=== PATIENT | male | born 1950 | race Two or more races ===

== ENCOUNTER 2018-10-08 19:15 | Inpatient (IN) | payer MEDICARE ==
[~2018-10-08] VITALS: Ht 177.8 cm; Wt 48.5 kg
--- NOTE | 2018-10-08 19:25 | NUR ---
PT BIBPA FROM [facility] BY PMD FOR ABNORMAL LABS WBC: 20.36, BUN: 28, CREATININE: 0.44. PT AOX3. NAD NOTED. RESP EVEN AND UNLABORED. TRACH. L ABD GTUBE. PT ON MONITOR IN BED 8. WILL CONTINUE TO MONITOR.
--- NOTE | 2018-10-08 20:07 | NUR ---
PHLEB AT BEDSIDE FOR LAB DRAW
[2018-10-08 20:18] LABS: BASOPHILS % (AUTO) 0.1 % (0.0-2.0); EOSINOPHILS % (AUTO) 0.5 % (0.0-6.0); HEMATOCRIT 42 % (39-51); HEMOGLOBIN 14.4 g/dL (13.5-17.5); LYMPHOCYTES # (AUTO) 0.9 /CMM (0.8-4.8); LYMPHOCYTES % (AUTO) 5.1 % (20.0-44.0); MEAN CORPUSCULAR HGB CONC 35 g/dl (31.0-36.0); MEAN CORPUSCULAR VOLUME 93 fL (80-96); MONOCYTES # (AUTO) 0.9 /CMM (0.1-1.30); MONOCYTES % (AUTO) 4.9 % (2.0-12.0); NEUTROPHILS # (AUTO) 16.3 /CMM (1.8-8.9); NEUTROPHILS % (AUTO) 89.4 % (43.0-81.0); PLATELET COUNT (AUTO) 244 /CMM (150-450); RED BLOOD CELL COUNT(AUTO) 4.45 MIL/uL (4.5-6.0); WHITE BLOOD COUNT (AUTO) 18.2 K/uL (4.3-11.0)
[2018-10-08 20:29] LABS: CALCIUM, SERUM 9.1 mg/dL (8.5-10.1); CARBON DIOXIDE 28 mmol/L (21-32); CHLORIDE 91 mmol/L (98-107); CREATININE 0.8 mg/dL (0.6-1.3); GLUCOSE 92 mg/dL (74-106); POTASSIUM 4.9 mmol/L (3.5-5.1); SODIUM SERUM 125 mmol/L (136-145); UREA NITROGEN, BLOOD 35 mg/dL (7-18)
[2018-10-08] MEDS ORDERED: IV NS 0.9% 1,000 ML BAG IV ONE (20:30)
--- NOTE | 2018-10-08 20:33 | NUR ---
RADIOLOGY AT BEDSIDE FOR XRAY
[2018-10-08 20:35] LABS: ALANINE AMINOTRANSFERASE 69 U/L (12-78); ALBUMIN 2.1 g/dL (3.4-5.0); ALKALINE PHOSPHATASE 121 U/L (46-116); ASPARTATE AMINOTRANSFERASE 36 U/L (15-37); BILIRUBIN,DIRECT 0.6 mg/dL (0.0-0.2); BILIRUBIN,TOTAL 1.2 mg/dL (0.2-1.0); TOTAL PROTEIN, SERUM 7.2 g/dL (6.4-8.2)
[2018-10-08] MEDS ORDERED: PIPERACILLIN /TAZOBACTAM 3.375 G VIAL IV ONE (21:00)
[2018-10-08] MEDS ORDERED: ACETAMINOPHEN 650 MG/SUPP.RECT RC ONE ×2 (21:00)
[2018-10-08] MEDS ORDERED: VANCOMYCIN 1 GM VIAL ONE (21:00)
[2018-10-08] MEDS ORDERED: PIPERACILLIN /TAZOBACTAM 3.375 G in IV D5W 50 ML IV ONE (21:00)
[2018-10-08] MEDS ORDERED: VANCOMYCIN 1 GM in IV D5W 250 ML IV ONE (21:00)
[2018-10-08] MEDS ORDERED: IPRA3AMP23 IH (21:24)
[2018-10-08] MEDS ORDERED: AMIO200T4 PO (21:24)
[2018-10-08] MEDS ORDERED: HYDR2TAB4 GT (21:24)
[2018-10-08] MEDS ORDERED: HYDR-4075 GT (21:24)
[2018-10-08] MEDS ORDERED: BUDE1AMP IH (21:24)
[2018-10-08] MEDS ORDERED: ACET-73 PO (21:24)
[2018-10-08] MEDS ORDERED: LIDO30AD10 TP (21:24)
[2018-10-08] MEDS ORDERED: VIT500LI GT (21:24)
[2018-10-08] MEDS ORDERED: LACT10SO GT (21:24)
[2018-10-08] MEDS ORDERED: L. A1TAB10 GT (21:24)
[2018-10-08] MEDS ORDERED: CHOL100040 GT (21:24)
[2018-10-08] MEDS ORDERED: DOCU50LI13 GT (21:24)
[2018-10-08] MEDS ORDERED: LANS15CA15 GT (21:24)
[2018-10-08] MEDS ORDERED: PROT946L GT (21:24)
[2018-10-08] MEDS ORDERED: NALO0.4D4 IV (21:24)
[2018-10-08] MEDS ORDERED: MULT9LIQ6 GT (21:24)
[2018-10-08] MEDS ORDERED: ESCI10TA GT (21:24)
--- NOTE | 2018-10-08 21:29 | NUR ---
PT REFUSED URETHRAL CATH. CONDOM CATH PLACED. AWARE.
--- NOTE | 2018-10-08 21:35 | NUR ---
TELE BED 117-1
--- NOTE | 2018-10-08 22:23 | NUR ---
REPORT GIVEN TO ALEXANDRA SON FOR STEVEN
--- NOTE | 2018-10-08 23:30 | NUR ---
RN NOTES GOT A CALL FROM LAB PT LACTIC ACID IS 2.6. CALLED LINDSAY BEE AND NO NEW ORDERS FOR NOW. WILL F/U AFTER MORNING LABS.
--- NOTE | 2018-10-08 23:45 | NUR ---
RN NOTES RECEIVED PATIENT ON GURNEY, ON TRACH COLLAR ON 6L O2, A/A/OX4,VERBAL. PATIENT HAS BEEN PLACED ON CLIENT CARE CONSULTANT WITH SR. PATIENT HAS NO COMPLAINT OF SOB, BREATHING IS EVEN . PATIENT IS COMPLAINING OF 10/10 LOWER BACK PAIN AT THIS TIME AND ASKING FOR PAIN MEDICATION. WILL F/U WITH MD OF NOW THERE ARE NO PAIN MEDICATIONS ORDERED. SKIN ASSESSMENT IS DONE, PICTURES ARE TAKEN AND PLACED IN THE CHART. RIGHT FOREARM G20 IV LINE IS PATIENT AND INTACT. PATIENT IS ORIENTED TO THE UNIT. ALL SAFETY MEASURES ARE IN PLACE, BED IN LOW, LOCKED POSITION, CALL LIGHT IN REACH. WILL CONTINUE TO MONITOR PATIENT CLOSELY.
[2018-10-09] VITALS: BP 101/53
[2018-10-09] MEDS: IV D5/ 0.9% NACL 1,000 ML IV PRN ×2 (00:23→17:12)
[2018-10-09] MEDS ORDERED: JEVITY 1.2 CAL 1,000 ML BOTTLE GT PRN ×2 (03:00)
[2018-10-09 04:00] VITALS: BP 110/42
[2018-10-09] MEDS ORDERED: PIPERACILLIN /TAZOBACTAM 3.375 G in IV NS 0.9% 100 ML IV SCH (05:00)
[2018-10-09] MEDS ORDERED: PIPERACILLIN /TAZOBACTAM 3.375 G VIAL IV ONE (05:33)
[2018-10-09 06:38] LABS: CALCIUM, SERUM 8.6 mg/dL (8.5-10.1); CREATININE 0.5 mg/dL (0.6-1.3); POTASSIUM 3.7 mmol/L (3.5-5.1)
[2018-10-09 06:44] LABS: BASOPHILS % (AUTO) 0.1 % (0.0-2.0); HEMATOCRIT 35 % (39-51); HEMOGLOBIN 11.7 g/dL (13.5-17.5); LYMPHOCYTES # (AUTO) 0.6 /CMM (0.8-4.8); LYMPHOCYTES % (AUTO) 4.3 % (20.0-44.0); MEAN CORPUSCULAR HGB CONC 34 g/dl (31.0-36.0); MEAN CORPUSCULAR VOLUME 94 fL (80-96); MONOCYTES # (AUTO) 0.7 /CMM (0.1-1.30); MONOCYTES % (AUTO) 5.6 % (2.0-12.0); NEUTROPHILS # (AUTO) 11.7 /CMM (1.8-8.9); PLATELET COUNT (AUTO) 194 /CMM (150-450); RED BLOOD CELL COUNT(AUTO) 3.68 MIL/uL (4.5-6.0)
--- NOTE | 2018-10-09 07:33 | NUR ---
CLINICAL REVIEWER NOTES RECEIVED PATIENT ASLEEP IN BED ABLE TO AROUSE WITH VOICE AND TOUCH. A/O X4 WITH TRACH ON 6 LTRS O2. SINUS ON THE TELE MONITOR. NO SIGNS OR SYMPTOMS OF RESPIRATORY DISTRESS OR ACUTE PAIN HOB ELEVATED >30 DEGREES GTF RUNNING CURRENTLY @ 40 ML/HR. IVF RUNNING TO RFA # 20 GAUGE D5NS @75 ML/HR. SAFETY AND ASPIRATION PRECAUTIONS IN PLACE BED IN LOW POSITION CALL LIGHT WITHIN REACH. WILL CONT TO MONITOR ACCORDINGLY
[2018-10-09 08:00] VITALS: BP 99/50
--- NOTE | 2018-10-09 08:04 | NUR ---
COLLECTOR OF PORT NOTES PATIENT PLACED ON CPAP BY RESPIRATORY
[2018-10-09 08:38] LABS: BAND % (MANUAL) 11 % (0.0-5.0); LYMPHOCYTES % (MANUAL) 5 % (16-48); MONOCYTES % (MANUAL) 6 % (0-11.0); NEUTROPHILS % (MANUAL) 78 (42-76)
[2018-10-09 08:51] LABS: APPEARANCE,URINE SL CLOUDY (CLEAR); BILIRUBIN,URINE NEGATIVE (NEGATIVE); BLOOD, URINE TRACE-INTA Ery/uL (NEGATIVE); COLOR,URINE ORANGE (YELLOW); KETONES,URINE NEGATIVE (NEGATIVE); LEUKOCYTE ESTERASE ,URINE 1+ (NEGATIVE); NITRITE, URINE NEGATIVE (NEGATIVE); PROTEIN,URINE TRACE mg/dl (NEGATIVE); UGLUCOSE NEGATIVE (NEGATIVE)
[2018-10-09] MEDS ORDERED: ACETAMINOPHEN 325 MG TABLET PO PRN (09:00)
[2018-10-09] MEDS ORDERED: LACTULOSE 10 G/15 ML UDC (PYXIS) GT PRN (09:00)
[2018-10-09] MEDS ORDERED: MAGNESIUM HYDROXIDE 30 ML UDC PO PRN (09:00)
[2018-10-09] MEDS ORDERED: ONDANSETRON HCL/PF 4 MG/2 ML VIAL IVP PRN (09:00)
[2018-10-09] MEDS ORDERED: MAG HYDROX/AL HYDROX/SIMETH 30 ML UDC PO PRN (09:00)
[2018-10-09] MEDS ORDERED: IPRATROPIUM NEB FS 0.5 MG/2.5 ML AMPUL.NEB NEB PRN (09:00)
[2018-10-09] MEDS ORDERED: ZOLPIDEM TARTRATE 5 MG TABLET PO PRN (09:00)
[2018-10-09] MEDS: ESCITALOPRAM OXALATE (10 MG) 10 MG TABLET GT SCH (09:02)
[2018-10-09] MEDS: ACIDOPHILUS/BULGARICUS 1 EACH TAB.CHEW GT SCH ×2 (09:02→17:09)
[2018-10-09] MEDS: HYDROCODONE/APAP 5/325MG 1 EACH TABLET PO PRN (09:03)
[2018-10-09] MEDS: DOCUSATE SODIUM LIQ 100 MG/10 ML UDC GT SCH ×2 (09:03→17:09)
[2018-10-09] MEDS: LIDOCAINE 5% (PATCH) 1 EA PATCH TP SCH (09:03)
[2018-10-09] MEDS: AMIODARONE HCL 200 MG TABLET PO SCH ×2 (09:04→17:00)
[2018-10-09] MEDS: BUDESONIDE RESPULE INH 0.5 MG/2 ML AMPUL.NEB IH SCH ×2 (09:30→21:47)
[2018-10-09 09:33] LABS: BACTERIA,URINE Few /HPF (None Seen); RBC,URINE 0-2 /HPF (0-2); SQUAMOUS EPITHELIAL CELL,UR Few /HPF (None Seen); WBC,URINE 81-100 /HPF (0-3)
[2018-10-09 09:35] LABS: TRIPLE PHOSPHATE CRYSTAL,UR Few /HPF (None Seen)
[2018-10-09] MEDS ORDERED: FEE PK DOSING 1 MIN EA MC ONE (09:46)
[2018-10-09 10:00] LABS: ABG BASE EXCESS 1.7 mmol/L; ABG OXYGEN SATURATION 82.3 % (92.0-98.5); ABG PCO2 33.5 mmHg (35.0-45.0); ABG PH 7.486 (7.350-7.450); ABG PO2 43.4 mmHg (75.0-100.0); AaDO2 203.3 mmHg; COHb 0.2 % (0.5-1.5); MetHb 0.5 % (0.0-1.5); O2Hb 81.7 % (94.0-97.0); SITE, ABG Left Radial; VENT MODE, BG CA
--- NOTE | 2018-10-09 10:16 | NUR ---
RUBBER WASHER NOTES PATIENT ABNORMAL ABGS. SATURATING 82-7-84% ON 6 LTRS TRACH. ORDERS OBTAINED TO PLACE PATIENT ON VENT WITH TRACH CHANGE D/T PORTEX
[2018-10-09] MEDS: VANCOMYCIN 0.75 GM in IV D5W 250 ML IV SCH ×2 (10:24→21:21)
[2018-10-09] MEDS: HYDROMORPHONE HCL 2 MG TABLET GT PRN ×2 (10:35→14:53)
--- NOTE | 2018-10-09 10:40 | NUR ---
RT ABG DONE AND RELAYED RESULTS TO DR MARX. PER DR MARX, PLACE PT ON VENT WITH CPAP 15/5 50% FIO2, AND SWITCHED OUT TRACH TO PORTEX # 6 CUFFED. PLACED PT ON VENT PER MD SETTINGS. ALARMS CHECKED AND AUDIBLE. VENT PLUGGED IN RED OUTLET. AMBU BAG HOB. SX WITH MOD THK PALE YELLOW SECRETIONS. PT PLACED ON CONTINUOUS PULSE OX. RN NOTIFIED AND WILL CONTINUE TO MONITOR T/O SHIFT.
[2018-10-09 12:00] VITALS: BP 116/56
[2018-10-09] MEDS ORDERED: PIPERACILLIN /TAZOBACTAM 3.375 G in IV D5W 100 ML IV SCH (12:00)
[2018-10-09] MEDS ORDERED: PIPERACILLIN /TAZOBACTAM 3.375 G in IV D5W 50 ML IV SCH (13:00)
--- NOTE | 2018-10-09 13:10 | NUR ---
ANIMAL CARE SPECIALIST NOTES 2 IV ACCESS OBTAINED (L) HAND # 20 GAUGE
[2018-10-09] MEDS: hydrALAZINE HCL 10 MG TABLET GT SCH ×2 (13:34→21:00)
[2018-10-09] MEDS: IPRATROPIUM NEB FS 0.5 MG/2.5 ML AMPUL.NEB NEB SCH ×2 (13:41→19:26)
[2018-10-09] MEDS: PIPERACILLIN /TAZOBACTAM 3.375 G in IV D5W 100 ML IV SCH ×2 (14:02→23:04)
[2018-10-09] MEDS: Z GUARD REMEDY 2 OZ OINT TP SCH ×2 (15:35→21:26)
[2018-10-09 16:00] VITALS: BP 88/46
[2018-10-09] MEDS: NYSTATIN TOP POWDER 15 GM BOTTLE TP SCH (17:09)
--- NOTE | 2018-10-09 18:41 | NUR ---
BARBER STYLIST NOTES PATIENT A/O X4 CURRENTLY ON VENT/ CPAP TOLERATING WELL. PORTEX 6 CHANGED TO CUFFED. NO SIGNS OR SYMPTOMS OF RESPIRATORY DISTRESS OR ACUTE PAIN NOTED. LAST DILAUDID GIVEN @ 1453. GTF ADVANCED TO 70ML/HR ORDERED TOLERATING WELL WITH 0 RESIDUAL.CONDOM CATH REPLACED DRAINING YELLOW/ORANGE COLORED URINE. IVF RUNNING TO RFA # 20 GAUGE D5NS @75 ML/HR L HAND # 20 GAUGE SALINE LOCK. ATB GIVEN WITH NO ADVERSE RXN NOTED. KEPT CLEAN AND DRY TURNED Q2 HR AND SUCTIONED NEEDED. SAFETY AND ASPIRATION PRECAUTIONS IN PLACE BED IN LOW POSITION CALL LIGHT WITHIN REACH
[2018-10-09] MEDS: JEVITY 1.2 CAL 1,000 ML BOTTLE GT PRN (18:54)
--- NOTE | 2018-10-09 19:21 | NUR ---
REPORT ENDORSED TO NOC
[2018-10-09 20:00] VITALS: BP 104/54
--- NOTE | 2018-10-09 21:00 | NUR ---
DRUM OPERATOR NOTES HYDRALAZINE DOSE FOR 9PM NOT GIVEN DUE TO BP 100/54, HR 85.
--- NOTE | 2018-10-09 22:00 | NUR ---
TELE/RN ENTRY NOTES PATIENT RECIEVED IN BED. RESTING COMFORTABLY. NO S/S OF ACUTE DISTRESS NOTES. RESPIRATION EVEN AND UNLABORED. NO SOB NOTED. PATIENT ALERT AND ORIENTED X4 DENIED ANY PAIN OR DISCOMFORT AT THIS TIME. IV SITE ON RFA 20 GAUGE AND IV SITE ON LEFT HAND 20 GAUGE. NOTED WITH NO S/S OF INFILTRATION, NO S/S OF INFECTION NOTED. D5 NS RUNNING AT 75ML/HR. TRACH INTACT, PATENT, IN MIDLINE CONNECTED TO VENT WITH PRESCRIBED SETTINGS. HOB KEPT ELEVATED. SAFETY MAINTAINED. BED AT THE LOWEST POSITION. WILL CONTINUE TO MONITOR PATIENT PER PLAN OF CARE. CALL LIGHT WITHIN REACH.
--- NOTE | 2018-10-09 22:13 | NUR ---
RT NOTE PATIENT RECEIVED TRACHED ON MECHANICAL VENTILATION WITH CHARTED SETTINGS. PORTEX [address] AMBU BAG @ BEDSIDE. VENT PLUGGED TO RED OUTLET. ALARMS ON AND AUDIBLE. TX GIVEN, NO ADVERSE REACTIONS NOTED. SX DONE, MODERATE THICK WHITE YELLOW SECRETIONS NOTED. PATIENT STABLE AT THIS TIME. WILL CONTINUE TO MONITOR. Addendum: 10/09/18 at 2214 by NANCY GILLIS RT Amended: Links added.
[2018-10-10] VITALS (7 sets, daily range): BP systolic 93–142; BP diastolic 54–72
[2018-10-10] MEDS: HYDROMORPHONE HCL 2 MG TABLET GT PRN ×4 (00:25→17:14)
[2018-10-10] MEDS: IPRATROPIUM NEB FS 0.5 MG/2.5 ML AMPUL.NEB NEB SCH ×4 (01:18→19:44)
[2018-10-10] MEDS: hydrALAZINE HCL 10 MG TABLET GT SCH ×3 (04:58→21:30)
--- NOTE | 2018-10-10 05:01 | NUR ---
TELE/RN NOTES HYDRALAZINE 10MG TAB WAS NOT ADMINISTER DUE TO LOW BLOOD PRESSURE 101/60
[2018-10-10] MEDS: PIPERACILLIN /TAZOBACTAM 3.375 G in IV D5W 100 ML IV SCH ×3 (05:11→21:31)
--- NOTE | 2018-10-10 06:54 | NUR ---
TELE/RN EXIT NOTES PATIENT REMAINED STABLE IN BED. RESTING COMFORTABLY. NO S/S OF ACUTE DISTRESS NOTES. RESPIRATION EVEN AND UNLABORED. NO SOB NOTED. PATIENT ALERT AND ORIENTED X4. DENIED ANY PAIN OR DISCOMFORT AT THIS TIME. IV SITE ON RFA 20 GAUGE AND IV SITE ON LEFT HAND 20 GAUGE, NOTED WITH NO S/S OF INFILTRATION, NO S/S OF INFECTION NOTED. D5 NS RUNNING AT 75ML/HR. TRACH INTACT, PATENT, IN MIDLINE CONNECTED TO VENT WITH PRESCRIBED SETTINGS. ORAL CARE PROVIDED. G TUBE IN PLACE, PATENT. NO RESIDUAL NOTED. CONTINUED TUBE FEEDING ORDERED. HOB KEPT ELEVATED. NO S/S OF ASPIRATION NOTED. SAFETY MEASURES MAINTAINED. BED AT THE LOWEST POSITION. CONDOM CATHETER INTACT, PATENT, DRAINGING WELL WITH CLEAR, YELLOW URINE. LAST OUTPUT NOTED 850. CALL LIGHT WITHING REACH. WILL ENDORSE TO THE AM SHIFT NURSE TO CONTINUE TO MONITOR.
--- NOTE | 2018-10-10 07:16 | NUR ---
CLINICAL REVIEW NURSE NOTES RECEIVED BEDSIDE REPORT PATIENT AWAKE IN BED ABLE TO RESPONDS TO VOICE AND TOUCH. A/O X4 ON VENT TOLERATING SETTINGS ORDERED. SINUS ON THE TELE MONITOR. NO SIGNS OR SYMPTOMS OF RESPIRATORY DISTRESS C/O BACK PAIN WILL MEDICATE NEEDED HOB ELEVATED >30 DEGREES GTF JEVITY 1.2 RUNNING @ 70ML/HR. IVF RUNNING TO RFA # 20 GAUGE D5NS @75 ML/HR LEFT HAND IV @ 20 GAUGE SALINE LOCK SAFETY AND ASPIRATION PRECAUTIONS IN PLACE BED IN LOW POSITION CALL LIGHT WITHIN REACH. WILL CONT TO MONITOR ACCORDINGLY
[2018-10-10 07:18] LABS: BASOPHILS % (AUTO) 0.1 % (0.0-2.0); EOSINOPHILS % (AUTO) 0.1 % (0.0-6.0); HEMATOCRIT 32 % (39-51); HEMOGLOBIN 10.9 g/dL (13.5-17.5); LYMPHOCYTES # (AUTO) 0.6 /CMM (0.8-4.8); LYMPHOCYTES % (AUTO) 6.3 % (20.0-44.0); MEAN CORPUSCULAR HGB CONC 34 g/dl (31.0-36.0); MEAN CORPUSCULAR VOLUME 94 fL (80-96); MONOCYTES # (AUTO) 0.8 /CMM (0.1-1.30); NEUTROPHILS # (AUTO) 7.8 /CMM (1.8-8.9); NEUTROPHILS % (AUTO) 84.5 % (43.0-81.0); PLATELET COUNT (AUTO) 161 /CMM (150-450); RED BLOOD CELL COUNT(AUTO) 3.37 MIL/uL (4.5-6.0); WHITE BLOOD COUNT (AUTO) 9.2 K/uL (4.3-11.0)
[2018-10-10 07:41] LABS: BILIRUBIN,TOTAL 0.4 mg/dL (0.2-1.0); CALCIUM, SERUM 8.2 mg/dL (8.5-10.1); CREATININE 0.4 mg/dL (0.6-1.3); MAGNESIUM 1.6 mg/dL (1.8-2.4); PHOSPHORUS 2.3 mg/dL (2.5-4.9); POTASSIUM 3.6 mmol/L (3.5-5.1); TOTAL PROTEIN, SERUM 5.5 g/dL (6.4-8.2)
[2018-10-10 07:44] LABS: ALBUMIN 1.4 g/dL (3.4-5.0)
[2018-10-10] MEDS: ESCITALOPRAM OXALATE (10 MG) 10 MG TABLET GT SCH (08:00)
[2018-10-10] MEDS: ACIDOPHILUS/BULGARICUS 1 EACH TAB.CHEW GT SCH ×2 (08:00→17:14)
[2018-10-10] MEDS: DOCUSATE SODIUM LIQ 100 MG/10 ML UDC GT SCH ×2 (08:00→17:14)
[2018-10-10] MEDS: NYSTATIN TOP POWDER 15 GM BOTTLE TP SCH ×2 (08:01→17:15)
[2018-10-10] MEDS: Z GUARD REMEDY 2 OZ OINT TP SCH ×2 (08:01→21:30)
[2018-10-10] MEDS: LIDOCAINE 5% (PATCH) 1 EA PATCH TP SCH (08:01)
--- NOTE | 2018-10-10 08:32 | NUR ---
[employer]IX ANALYST NOTES POSITIVE FOR BLOOD CULTURE PER STAS JIMÉNEZ INFORMED
[2018-10-10] MEDS: JEVITY 1.2 CAL 1,000 ML BOTTLE GT PRN ×2 (09:58→10:08)
[2018-10-10] MEDS: HYDROCODONE/APAP 5/325MG 1 EACH TABLET PO PRN ×2 (10:04→15:16)
[2018-10-10] MEDS: AMIODARONE HCL 200 MG TABLET PO SCH ×2 (10:04→17:00)
[2018-10-10] MEDS: IV D5/ 0.9% NACL 1,000 ML IV PRN (10:06)
[2018-10-10] MEDS: VANCOMYCIN 0.75 GM in IV D5W 250 ML IV SCH ×2 (10:07→21:46)
[2018-10-10 10:15] LABS: ABG BASE EXCESS 1.6 mmol/L; ABG OXYGEN SATURATION 98.7 % (92.0-98.5); ABG PH 7.455 (7.350-7.450); ABG PO2 158.1 mmHg (75.0-100.0); AaDO2 156.8 mmHg; COHb 0.3 % (0.5-1.5); MetHb 0.4 % (0.0-1.5); SITE, ABG Right Radial; VENT MODE, BG CPAP +5 PSV 15 50%
[2018-10-10] MEDS: BUDESONIDE RESPULE INH 0.5 MG/2 ML AMPUL.NEB IH SCH ×2 (10:19→21:43)
--- NOTE | 2018-10-10 10:58 | NUR ---
WOUND CARE CONSULT WOUND CARE RECEIVED CONSULT FOR EXCORIATION PERINEAL. WOUND CARE WILL DEFER CONSULT AND TREATMENT PLANS TO PLASTIC SURGICAL TEAM WHO ARE CURRENTLY FOLLOWING THIS PATIENT. PATIENT WITH MOISE AT 13, ALL PRESSURE ULCER PREVENTION MEASURES ARE NOTED TO BE IN PLACE AT THIS TIME. WILL SEE PRN.
[2018-10-10] MEDS: Magnesium 1GM/D5W 100ML PREMIX 100 ML IV SCH ×2 (11:11→12:13)
[2018-10-10] MEDS ORDERED: NEUTRA PHOS 1 POWD.PACKET GT ONE (12:00)
--- NOTE | 2018-10-10 18:08 | NUR ---
RT NOTE PT REMAINS MECHANICALLY VENTILATED VIA PORTEX 6 CUFFED TRACHEOSTOMY TUBE. CUFF INFLATED. TRACH TUBE MIDLINE AND SECURE. VENTILATOR SETTINGS PRESCRIBED. ALARMS SET PER PROTOCOL AND AUDIBLE. VENT PLUGGED IN TO RED OUTLET. AMBU BAG AT BED SIDE. NO DISTRESS NOTED. PT AWAKE AND ALERT. Addendum: 10/10/18 at 1810 by JAKOB SIMPSON RT Amended: Links added.
--- NOTE | 2018-10-10 18:37 | NUR ---
STEM CRUSHER NOTES NO SIGNIFICANT CHANGES THROUGHOUT THE SHIFT PATIENT A/O X4 CURRENTLY ON VENT/ CPAP TOLERATING WELL NO SIGNS OR SYMPTOMS OF RESPIRATORY DISTRESS OR ACUTE PAIN NOTED. LAST DILAUDID GIVEN @ 1730 GTF JEVITY 1.2 RUNNING TO 70ML/HR ORDERED TOLERATING WELL WITH 0 RESIDUAL.CONDOM CATH DRAINING CLEAR YELLOW/ORANGE COLORED URINE. IVF RUNNING TO L HAND # 20 GAUGE D5NS @75 ML/HR ATB GIVEN WITH NO ADVERSE RXN NOTED. KEPT CLEAN AND DRY TURNED Q2 HR AND SUCTIONED NEEDED. SAFETY AND ASPIRATION PRECAUTIONS IN PLACE BED IN LOW POSITION CALL LIGHT WITHIN REACH
--- NOTE | 2018-10-10 19:17 | NUR ---
REPORT ENDORSED TO NOC
--- NOTE | 2018-10-10 19:56 | NUR ---
BUTTER PRINTER INITIAL NOTES RECEIVED BEDSIDE REPORT PATIENT AWAKE IN BED ABLE TO RESPONDS TO VOICE AND TOUCH. A/O X4 ON CPAP MODE VENT TOLERATING SETTINGS ORDERED. SINUS ON THE TELE MONITOR. NO SIGNS OR SYMPTOMS OF RESPIRATORY DISTRESS C/O BACK PAIN WILL MEDICATE NEEDED HOB ELEVATED >30 DEGREES GTF JEVITY 1.2 RUNNING @ 70ML/HR. IVF RUNNING TO RFA # 20 GAUGE D5NS @75 ML/HR LEFT HAND IV @ 20 GAUGE SALINE LOCK SAFETY AND ASPIRATION PRECAUTIONS IN PLACE BED IN LOW POSITION CALL LIGHT WITHIN REACH. WILL CONT TO MONITOR ACCORDINGLY
[2018-10-11] VITALS: BP 129/64
[2018-10-11] MEDS: HYDROMORPHONE HCL 2 MG TABLET GT PRN ×4 (00:58→15:31)
[2018-10-11] MEDS: IPRATROPIUM NEB FS 0.5 MG/2.5 ML AMPUL.NEB NEB SCH ×4 (01:21→19:28)
[2018-10-11] MEDS: hydrALAZINE HCL 10 MG TABLET GT SCH ×3 (04:37→20:36)
[2018-10-11] MEDS: IV D5/ 0.9% NACL 1,000 ML IV PRN (04:53)
[2018-10-11 04:55] VITALS: BP 124/64
[2018-10-11] MEDS: PIPERACILLIN /TAZOBACTAM 3.375 G in IV D5W 100 ML IV SCH ×3 (05:18→21:08)
--- NOTE | 2018-10-11 05:59 | NUR ---
RT NOTE RECEIVED TRACH PATIENT WITH PORTEX#6 ON NOTED VENT SETTINGS. PRN SUCTION WAS DONE . VENT PLUGGED INTO RED OUTLET . ALARMS ARE SET AND AUDIBLE. PATIENT TRACH IS SECURED AND PATENT. PATIENT STABLE THROUGHOUT THE SHIFT. WILL CONTINUE TO MONITOR PATIENT. Addendum: 10/11/18 at 0600 by JIE SIMPSON RT Amended: Links added.
[2018-10-11 06:17] LABS: BASOPHILS % (AUTO) 0.3 % (0.0-2.0); EOSINOPHILS % (AUTO) 0.2 % (0.0-6.0); HEMATOCRIT 32 % (39-51); HEMOGLOBIN 10.8 g/dL (13.5-17.5); LYMPHOCYTES # (AUTO) 0.4 /CMM (0.8-4.8); LYMPHOCYTES % (AUTO) 6.7 % (20.0-44.0); MEAN CORPUSCULAR HGB CONC 34 g/dl (31.0-36.0); MEAN CORPUSCULAR VOLUME 94 fL (80-96); MONOCYTES % (AUTO) 15.7 % (2.0-12.0); NEUTROPHILS # (AUTO) 4.9 /CMM (1.8-8.9); NEUTROPHILS % (AUTO) 77.1 % (43.0-81.0); PLATELET COUNT (AUTO) 154 /CMM (150-450); WHITE BLOOD COUNT (AUTO) 6.3 K/uL (4.3-11.0)
[2018-10-11 06:39] LABS: BILIRUBIN,TOTAL 0.5 mg/dL (0.2-1.0); CALCIUM, SERUM 7.6 mg/dL (8.5-10.1); CREATININE 0.3 mg/dL (0.6-1.3); MAGNESIUM 1.7 mg/dL (1.8-2.4); PHOSPHORUS 2.7 mg/dL (2.5-4.9); POTASSIUM 3.7 mmol/L (3.5-5.1); TOTAL PROTEIN, SERUM 5.5 g/dL (6.4-8.2)
[2018-10-11 06:41] LABS: ALBUMIN 1.3 g/dL (3.4-5.0)
--- NOTE | 2018-10-11 06:55 | NUR ---
GENERAL CLAIMS AGENT CLOSING NOTES ENDORSED BEDSIDE REPORT PATIENT AWAKE IN BED ABLE TO RESPONDS TO VOICE AND TOUCH. A/O X4 ON CPAP MODE VENT TOLERATING SETTINGS ORDERED. SINUS ON THE TELE MONITOR. NO SIGNS OR SYMPTOMS OF RESPIRATORY DISTRESS C/O BACK PAIN WILL MEDICATE NEEDED HOB ELEVATED >30 DEGREES GTF JEVITY 1.2 RUNNING @ 70ML/HR. IVF RUNNING TO RFA # 20 GAUGE D5NS @75 ML/HR LEFT HAND IV @ 20 GAUGE SALINE LOCK SAFETY AND ASPIRATION PRECAUTIONS IN PLACE BED IN LOW POSITION CALL LIGHT WITHIN REACH. WILL CONT TO MONITOR ACCORDINGLY
[2018-10-11 07:30] LABS: BAND % (MANUAL) 9 % (0.0-5.0); LYMPHOCYTES % (MANUAL) 10 % (16-48); MONOCYTES % (MANUAL) 16 % (0-11.0); NEUTROPHILS % (MANUAL) 65 (42-76)
--- NOTE | 2018-10-11 07:30 | NUR ---
VP RESPIRATORY INITIAL NOTES RECEIVED PT IN BED, A/O X2-3. PT ON CPAP. TOLERATING SETTINGS WELL. NO S/SX OF RESP DISTRESS. LARGE AMOUNT OF SECRETIONS SUCTIONED. PT HAS CONDOM CATH PLACED. JEVITY RUNNING AT 70ML/HR. NO RESIDUAL NOTED. RFA #20 AND LEFT HAND C/D/P/I. PT C/O PAIN 10/10 ON BACK. BED IN LOCKED/LOWEST POSITION. CALL LIGHT IN REACH. WILL CONT TO MONITOR.
[2018-10-11] MEDS: BUDESONIDE RESPULE INH 0.5 MG/2 ML AMPUL.NEB IH SCH ×2 (07:52→19:28)
[2018-10-11 08:00] VITALS: BP 147/87
[2018-10-11] MEDS: ESCITALOPRAM OXALATE (10 MG) 10 MG TABLET GT SCH (08:53)
[2018-10-11] MEDS: DOCUSATE SODIUM LIQ 100 MG/10 ML UDC GT SCH ×2 (08:53→16:31)
[2018-10-11] MEDS: ACIDOPHILUS/BULGARICUS 1 EACH TAB.CHEW GT SCH ×2 (08:53→16:31)
[2018-10-11] MEDS: LIDOCAINE 5% (PATCH) 1 EA PATCH TP SCH (08:54)
[2018-10-11] MEDS: AMIODARONE HCL 200 MG TABLET PO SCH ×2 (08:54→16:31)
[2018-10-11] MEDS: VANCOMYCIN 0.75 GM in IV D5W 250 ML IV SCH ×2 (09:08→18:49)
[2018-10-11] MEDS: Z GUARD REMEDY 2 OZ OINT TP PRN (09:12)
[2018-10-11] MEDS: Z GUARD REMEDY 2 OZ OINT TP SCH ×2 (09:12→21:07)
[2018-10-11] MEDS: NYSTATIN TOP POWDER 15 GM BOTTLE TP SCH ×2 (09:12→16:31)
[2018-10-11] MEDS: Magnesium 1GM/D5W 100ML PREMIX 100 ML IV SCH ×2 (10:37→12:02)
[2018-10-11 12:00] VITALS: BP 109/58
[2018-10-11] MEDS: HYDROCODONE/APAP 5/325MG 1 EACH TABLET PO PRN ×2 (12:11→17:18)
[2018-10-11 16:00] VITALS: BP 118/64
--- NOTE | 2018-10-11 17:34 | NUR ---
PT TRANSFERRED TO CT VIA BVM @ 15 LPM, AND BACK TO [place]. PT PLACED BACK ON VENTILATOR IN [place] WITH PREVIOUS SETTINGS. ALARMS SET AND AUDIBLE THROUGH OUT [place] UNIT. SPARE TRACH AND BVM AT HEAD OF BED. Addendum: 10/11/18 at 1738 by MARK SALEH RT Amended: Links added.
--- NOTE | 2018-10-11 17:51 | NUR ---
telephone clerks supervisor notes per dr osvaldo krishnamurthy, hold gtf until GI sees patient.
--- NOTE | 2018-10-11 18:49 | NUR ---
DIGITAL MEDIA REPRESENTATIVE CLOSING NOTES PT RESTING, TOLERATING VENT SETTINGS. NO C/O PAIN AT THIS TIME. WILL ENDORSE TO PM NURSE FOR STEVEN.
--- NOTE | 2018-10-11 19:30 | NUR ---
DIAGNOSTIC CARDIAC SONOGRAPHER NOTE: RECEIVED PT ON BED ASLEEP BUT AROUSES EASILY TO VERBAL AND TACTILE STIMULI. NO APPARENT DISTRESS NOTED. DENIES PAIN AND DISCOMFORT AT THIS TIME. [facility], SETTINGS ORDERED. NO SOB NOTED. SUCTIONED NEEDED. IV INTACT AND PATENT, IVF INFUSING WELL. ON TELE MONITOR SINUS RHYTHM HR 68BPM. KEPT CLEAN, DRY AND COMFORTABLE. SAFETY AND FALL PRECAUTIONS OBSERVED AND MAINTAINED. WILL CONTINUE TO MONITOR PT.
[2018-10-11 20:00] VITALS: BP 106/61
[2018-10-12] VITALS (7 sets, daily range): BP systolic 102–120; BP diastolic 60–68
[2018-10-12] MEDS: HYDROMORPHONE HCL 2 MG TABLET GT PRN ×4 (00:20→16:16)
[2018-10-12] MEDS: IPRATROPIUM NEB FS 0.5 MG/2.5 ML AMPUL.NEB NEB SCH ×4 (01:38→19:32)
[2018-10-12] MEDS: VANCOMYCIN 0.75 GM in IV D5W 250 ML IV SCH ×2 (02:09→10:05)
[2018-10-12] MEDS: HYDROCODONE/APAP 5/325MG 1 EACH TABLET PO PRN ×4 (02:38→20:48)
[2018-10-12] MEDS: hydrALAZINE HCL 10 MG TABLET GT SCH ×3 (04:40→22:10)
[2018-10-12] MEDS: IV D5/ 0.9% NACL 1,000 ML IV PRN ×2 (05:16→20:44)
[2018-10-12] MEDS: PIPERACILLIN /TAZOBACTAM 3.375 G in IV D5W 100 ML IV SCH ×3 (05:20→22:10)
[2018-10-12 06:35] LABS: BASOPHILS % (AUTO) 0.2 % (0.0-2.0); EOSINOPHILS % (AUTO) 0.4 % (0.0-6.0); HEMATOCRIT 32 % (39-51); HEMOGLOBIN 10.9 g/dL (13.5-17.5); LYMPHOCYTES # (AUTO) 0.8 /CMM (0.8-4.8); LYMPHOCYTES % (AUTO) 11.6 % (20.0-44.0); MEAN CORPUSCULAR HGB CONC 34 g/dl (31.0-36.0); MEAN CORPUSCULAR VOLUME 94 fL (80-96); MONOCYTES # (AUTO) 1.1 /CMM (0.1-1.30); MONOCYTES % (AUTO) 16.1 % (2.0-12.0); NEUTROPHILS # (AUTO) 5.1 /CMM (1.8-8.9); NEUTROPHILS % (AUTO) 71.7 % (43.0-81.0); PLATELET COUNT (AUTO) 143 /CMM (150-450); WHITE BLOOD COUNT (AUTO) 7.1 K/uL (4.3-11.0)
[2018-10-12 06:48] LABS: BILIRUBIN,TOTAL 0.7 mg/dL (0.2-1.0); CALCIUM, SERUM 7.7 mg/dL (8.5-10.1); CREATININE 0.3 mg/dL (0.6-1.3); MAGNESIUM 1.8 mg/dL (1.8-2.4); PHOSPHORUS 3.1 mg/dL (2.5-4.9); POTASSIUM 3.6 mmol/L (3.5-5.1); TOTAL PROTEIN, SERUM 5.4 g/dL (6.4-8.2)
--- NOTE | 2018-10-12 06:49 | NUR ---
SHOE PARTS MOLDER NOTE: NO CHANGES NOTED THROUGHOUT THE SHIFT. NO APPARENT DISTRESS NOTED. COMPLAINED OF BACK PAIN, PRN PAIN MEDS GIVEN, VERBALIZATION OF RELIEF NOTED. [facility], SETTINGS ORDERED. SUCTIONED NEEDED. SINUS RHYTHM ON TELE MONITOR HT 73BPM. NO LEAKAGE ON GT NOTED. KEPT CLEAN, DRY AND COMFORTABLE. SAFETY AND FALL PRECAUTIONS OBSERVED AND MAINTAINED. WILL ENDORSE TO DAY SHIFT RN FOR CONTINUITY OF CARE.
--- NOTE | 2018-10-12 07:45 | NUR ---
ASSISTANT BASEBALL COACH NOTES RECEIVED BEDSIDE REPORT PATIENT AWAKE IN BED ABLE TO RESPOND TO VOICE AND TOUCH. A/O X4 ON VENT/CPAP TOLERATING SETTINGS ORDERED. SINUS ON THE TELE MONITOR. NO SIGNS OR SYMPTOMS OF RESPIRATORY DISTRESS C/O OF CHRINIC BACK PAIN HOB ELEVATED >30 DEGREES GTF ON HOLD D/T GT SITE LEAKING . IVF RUNNING TO L HAND # 20 GAUGE D5NS @75 ML/HR RFA IV @ 20 GAUGE SALINE LOCK SAFETY AND ASPIRATION PRECAUTIONS IN PLACE BED IN LOW POSITION CALL LIGHT WITHIN REACH. WILL CONT TO MONITOR ACCORDINGLY
[2018-10-12 07:54] LABS: ALBUMIN 1.3 g/dL (3.4-5.0)
--- NOTE | 2018-10-12 07:56 | NUR ---
CRITICAL LAB ALBUMIN 1.3 DR HERNANDEZ AWARE STATED PT HAS ABNORMAL CT AND NEURO TO CONSULT
[2018-10-12] MEDS: ACIDOPHILUS/BULGARICUS 1 EACH TAB.CHEW GT SCH ×2 (08:27→16:16)
[2018-10-12] MEDS: AMIODARONE HCL 200 MG TABLET PO SCH ×2 (08:27→16:16)
[2018-10-12] MEDS: ESCITALOPRAM OXALATE (10 MG) 10 MG TABLET GT SCH (08:27)
[2018-10-12] MEDS: DOCUSATE SODIUM LIQ 100 MG/10 ML UDC GT SCH ×2 (08:27→16:16)
[2018-10-12] MEDS: LIDOCAINE 5% (PATCH) 1 EA PATCH TP SCH (08:28)
[2018-10-12] MEDS: NYSTATIN TOP POWDER 15 GM BOTTLE TP SCH ×2 (08:28→16:16)
[2018-10-12] MEDS: Z GUARD REMEDY 2 OZ OINT TP SCH ×2 (08:28→22:11)
[2018-10-12] MEDS: BUDESONIDE RESPULE INH 0.5 MG/2 ML AMPUL.NEB IH SCH ×2 (09:51→21:00)
[2018-10-12 15:16] LABS: IRON, SERUM 27 ug/dl (50-175)
[2018-10-12 15:40] LABS: TOTAL IRON BINDING CAPACITY 169 ug/dl (250-450)
[2018-10-12 15:50] LABS: FERRITIN 5791 ng/mL (8-388)
--- NOTE | 2018-10-12 18:39 | NUR ---
OFFICE AUDITOR NOTES NO SIGNIFICANT CHANGES THROUGHOUT THE SHIFT PATIENT A/O X4 CURRENTLY ON VENT/ CPAP TOLERATING WELL NO SIGNS OR SYMPTOMS OF RESPIRATORY DISTRESS OR ACUTE PAIN NOTED AT THIS TIME PAIN MEDS GIVEN THROUGHOUT SHIFT GTF ON HOLE DUE TO LEAKING AT STOMA SITE AWAITING GI CONSULT CONDOM CATH DRAINING CLEAR YELLOW URINE. IVF RUNNING TO L HAND # 20 GAUGE D5NS @75 ML/HR RIGHT HAND # 20 GAUGE ATB ATB/TKO. ATB GIVEN WITH NO ADVERSE RXN NOTED. ORAL AND TRACH DONE KEPT CLEAN AND DRY TURNED Q2 HR AND SUCTIONED NEEDED. SAFETY AND ASPIRATION PRECAUTIONS IN PLACE BED IN LOW POSITION CALL LIGHT WITHIN REACH
--- NOTE | 2018-10-12 19:16 | NUR ---
REPORT ENDORSED TO NOC
--- NOTE | 2018-10-12 19:25 | NUR ---
MS/RN OPENING NOTES PT RECEIVED WITH EYES CLOSED. ON VENT AND TOLERATING SETTINGS. BREATHING EVEN AND UNLABORED. IN NO ACUTE DISTRESS. ON TELE MONITOR SHOWING SR 72. CONDOM CATH IN PLACE AND DRAINING TO GRAVITY. GT IN PLACE, FEEDING ON HOLD FOR NOW DUE TO SITE LEAKING. IV TO LEFT HAND RUNNING IVF ORDERED. IV TO RFA PATENT AND INTACT SALINE LOCKED. BED IN LOW/LOCKED POSITION WITH HOB SEMI FOWLERS. BILAT. UPPER SIDE RAILS IN PLACE. WILL CONTINUE TO MONITOR
[2018-10-13] VITALS: BP 111/63
[2018-10-13] MEDS: JEVITY 1.2 CAL 1,000 ML BOTTLE GT PRN ×2 (00:58→23:25)
[2018-10-13] MEDS: HYDROMORPHONE HCL 2 MG TABLET GT PRN ×4 (01:03→21:01)
--- NOTE | 2018-10-13 01:06 | NUR ---
RN NOTES PER GLENIS YUAN (GI) NOTE, CONTINUE TUBE FEEDINGS TOLERATED AND MAKE SURE GTUBE BUMPER AND STOPPER IS SNUG. ALTERNATIVE FINANCING SPECIALIST NOTIFIED. SECURED GT BUMPER AND INITIATED TUBE FEEDING AT 20CC/HR. ABDOMEN IS SOFT AND NON TENDER. WILL MONITOR FOR LEAKING. PT ALSO C/O 10/10 BACK PAIN. REQUESTING PAIN MEDS. ADMINISTERED PRN DILAUDID TABLET ORDERED AND REPOSITIONED PT.
[2018-10-13] MEDS: IPRATROPIUM NEB FS 0.5 MG/2.5 ML AMPUL.NEB NEB SCH ×4 (01:30→19:28)
[2018-10-13] MEDS: HYDROCODONE/APAP 5/325MG 1 EACH TABLET PO PRN (02:49)
--- NOTE | 2018-10-13 02:50 | NUR ---
PRN NORCO PT C/O BACK PAIN 12/03. ADMINISTERED PRN NORCO AND REPOSITIONED PT. PT TOLERATING GT FEEDING. STOMA WITH MILD LEAKING, SIMILAR AMOUNT OF DRAINAGE AT BEGINNING OF SHIFT. RE-SECURED BUMPER TO ABDOMEN. HOB REMAINS ELEVATED. NO ADDITIONAL NEEDS EXPRESSED AT THIS TIME.
[2018-10-13 04:00] VITALS: BP 118/66
[2018-10-13] MEDS: PIPERACILLIN /TAZOBACTAM 3.375 G in IV D5W 100 ML IV SCH ×3 (05:15→21:01)
[2018-10-13] MEDS: hydrALAZINE HCL 10 MG TABLET GT SCH ×3 (05:15→21:02)
--- NOTE | 2018-10-13 06:25 | NUR ---
TELE/RN CLOSING NOTES PT ASLEEP, RESPONSIVE TO NAME. TOLERATING MECHANICAL VENT SETTINGS. ON CONTINUOUS PULSE OX SHOWING 100%. SUCTIONED PRN. BREATHING EVEN AND UNLABORED. IN NO ACUTE DISTRESS. ON TELE MONITOR SHOWING SR, 65. IV TO LEFT HAND AND RFA PATENT AND INTACT RUNNING IVF ORDERED. GT PATENT AND INTACT, JEVITY RUNNING AT 20CC/HR. TOLERATING WELL. NO RESIDUALS OR SIGNIFICANT LEAKING FROM SITE NOTED. CONDOM CATH IN PLACE AND DRAINING TO GRAVITY. TURNED/REPOSITIONED Q2H AND PRN, HEELS OFFLOADED. PRN PAIN MEDS ADMINISTERED THROUGHOUT SHIFT. WOUND CARE RENDERED ORDERED. NO SIGNIFICANT CHANGES OVERNIGHT. HOB ELEVATED. BED IN LOW/LOCKED POSITION WITH CALL LIGHT IN REACH, BILAT. UPPER SIDE RAILS IN PLACE. WILL ENDORSE TO DAY SHIFT RN STEVEN.
[2018-10-13 07:06] LABS: BASOPHILS % (AUTO) 0.5 % (0.0-2.0); EOSINOPHILS % (AUTO) 0.6 % (0.0-6.0); HEMATOCRIT 31 % (39-51); HEMOGLOBIN 10.8 g/dL (13.5-17.5); LYMPHOCYTES % (AUTO) 15.5 % (20.0-44.0); MEAN CORPUSCULAR HGB CONC 35 g/dl (31.0-36.0); MEAN CORPUSCULAR VOLUME 94 fL (80-96); MONOCYTES % (AUTO) 14.8 % (2.0-12.0); NEUTROPHILS # (AUTO) 4.5 /CMM (1.8-8.9); NEUTROPHILS % (AUTO) 68.6 % (43.0-81.0); PLATELET COUNT (AUTO) 137 /CMM (150-450); RED BLOOD CELL COUNT(AUTO) 3.34 MIL/uL (4.5-6.0); WHITE BLOOD COUNT (AUTO) 6.5 K/uL (4.3-11.0)
--- NOTE | 2018-10-13 07:16 | NUR ---
ECONOMICS DEPARTMENT CHAIR NOTES RECEIVED BEDSIDE REPORT PATIENT ASLEEP IN BED ABLE TO AROUSE TO VOICE AND TOUCH. A/O X4 ON VENT/CPAP TOLERATING SETTINGS ORDERED. SINUS ON THE TELE MONITOR. NO SIGNS OR SYMPTOMS OF RESPIRATORY DISTRESS C/O OF CHRONIC BACK PAIN HOB ELEVATED >30 DEGREES GTF JEVITY 1.2 @ 45 ML/HR WITH GOAL OF 70 ML/HR LEAKING NOTED TO GT SITE GI CONSULT DONE CONT TO MONITOR. IVF RUNNING TO L HAND # 20 GAUGE D5NS @75 ML/HR RFA IV @ 20 GAUGE SALINE LOCK SAFETY AND ASPIRATION PRECAUTIONS IN PLACE BED IN LOW POSITION CALL LIGHT WITHIN REACH. WILL CONT TO MONITOR ACCORDINGLY
[2018-10-13] MEDS ORDERED: PANTOPRAZOLE 40 MG TABLET.DR PO SCH (07:30)
[2018-10-13 07:58] LABS: BILIRUBIN,TOTAL 0.6 mg/dL (0.2-1.0); CALCIUM, SERUM 7.6 mg/dL (8.5-10.1); CREATININE 0.4 mg/dL (0.6-1.3); MAGNESIUM 1.7 mg/dL (1.8-2.4); POTASSIUM 3.3 mmol/L (3.5-5.1); TOTAL PROTEIN, SERUM 5.4 g/dL (6.4-8.2)
[2018-10-13 08:00] VITALS: BP 111/63
[2018-10-13 08:02] LABS: ALBUMIN 1.1 g/dL (3.4-5.0)
[2018-10-13] MEDS: ESCITALOPRAM OXALATE (10 MG) 10 MG TABLET GT SCH (08:14)
[2018-10-13] MEDS: DOCUSATE SODIUM LIQ 100 MG/10 ML UDC GT SCH ×2 (08:15→17:02)
[2018-10-13] MEDS: ACIDOPHILUS/BULGARICUS 1 EACH TAB.CHEW GT SCH ×2 (08:15→17:02)
[2018-10-13] MEDS: LIDOCAINE 5% (PATCH) 1 EA PATCH TP SCH (08:15)
[2018-10-13] MEDS: AMIODARONE HCL 200 MG TABLET PO SCH (08:15)
[2018-10-13] MEDS ORDERED: PHARMACY TO CHANGE PO MEDS TO GT/NG XX PRN (08:30)
[2018-10-13] MEDS: AMIODARONE HCL 200 MG TABLET GT SCH ×2 (09:00→17:03)
[2018-10-13] MEDS ORDERED: ACETAMINOPHEN 650 MG/20.3 ML UDC GT PRN (09:00)
[2018-10-13] MEDS ORDERED: MAG HYDROX/AL HYDROX/SIMETH 30 ML UDC GT PRN (09:00)
[2018-10-13] MEDS ORDERED: MAGNESIUM HYDROXIDE 30 ML UDC GT PRN (09:00)
[2018-10-13] MEDS: Z GUARD REMEDY 2 OZ OINT TP SCH ×2 (09:07→21:01)
[2018-10-13] MEDS: NYSTATIN TOP POWDER 15 GM BOTTLE TP SCH ×2 (09:07→17:04)
[2018-10-13] MEDS: PANTOPRAZOLE 40 MG/PACK PACK GT SCH (09:07)
--- NOTE | 2018-10-13 09:26 | NUR ---
REPORT ENDORSED TO RYAN MORRIS
--- NOTE | 2018-10-13 09:31 | NUR ---
RN OPENING NOTES REPORT FROM ALEXANDRA GREEN. PATIENT IN BED ASLEEP BUT EASILY AROUSABLE. ALERT, MOUTHS WORDS. ON VENT, SATING GOOD >90%. ON CONDOM CATH. ON GTF WITH JEVITY. HAS LEFT HAND #20 WITH D5NS AT 75 ML/HR. AND RIGHT FA #20 SALINE LOCKED. PENDING STOOL FOR OB. NO COMPLAINS OF ANY PAIN OR SOB AT THIS TIME. BED LOCKED AND IN LOW POSITION. CALL LIGHT WITHIN REACH. WILL CONT TO MONITOR FOR STEVEN
[2018-10-13] MEDS ORDERED: POTASSIUM CHLORIDE 20 MEQ POWDER PACKET GT SCH (10:00)
[2018-10-13] MEDS: Magnesium 1GM/D5W 100ML PREMIX 100 ML IV SCH ×2 (10:28→11:39)
--- NOTE | 2018-10-13 11:00 | NUR ---
RN NOTES PATIENT HAD AN US GUIDED THORACENTESIS ON LEFT PLEURAL. CONSENT SIGNED. 460 ML OF FLUIDS WAS OUT. SENT TO LAB. PATIENT ASKED FOR PAIN MEDICATION AFTER
[2018-10-13] MEDS: IV D5/ 0.9% NACL 1,000 ML IV PRN (11:04)
[2018-10-13] MEDS: HYDROCODONE/APAP 5/325MG 1 EACH TABLET GT PRN ×2 (11:09→23:26)
[2018-10-13] MEDS: BUDESONIDE RESPULE INH 0.5 MG/2 ML AMPUL.NEB IH SCH ×2 (11:28→21:04)
[2018-10-13 12:00] VITALS: BP 110/59
--- NOTE | 2018-10-13 15:32 | NUR ---
RN NOTES PATIENT ASKED FOR PAIN MEDICATION. ADMINISTERED DILAUDID. PAIN WAS IN THE AREA WHERE THE THORACENTESIS WAS DONE
[2018-10-13 16:00] VITALS: BP 113/65
[2018-10-13] MEDS: PROSOURCE / PROSTAT (PYXIS) 30 ML UDC GT SCH (17:04)
--- NOTE | 2018-10-13 17:53 | NUR ---
RT RECD PT TRACHED INTACT & SECURED ON MECH VENT ROSHAN ORDERED SETTINGS ALARMS ON AND AUDIBLE BAG AND MASK AT HOB VENT PLUGGED IN RED OUTLET, SX THICK YELLOW MOD AMOUNT OF SECRETIONS, MAINTAINED SP02 > 92% NO SOB WILL CONT TO MONITOR
--- NOTE | 2018-10-13 18:23 | NUR ---
RN NOTES PATIENT HAS NOT HAD ANY BM TODAY. COLACE WAS GIVEN SCHEDULED TWICE TODAY. WILL ADMINISTER MOM. WILL ENDORSE TO NOC SHIFT
--- NOTE | 2018-10-13 18:39 | NUR ---
RN CLOSING NOTES PATIENT IN BED AWAKE, MOUTHS WORDS. CONDOM CATH IN PLACE, WITH YELLOW AND CLEAR URINE. D5NS RUNNING AT 75 ML/HR. NORCO AND DILAUDID HAS BEEN GIVEN AFTER THORACENTESIS TODAY, ALSO PATIENT HAS BEEN HAVING BACK PAIN. STILL AWAITING FOR A STOOL SAMPLE. COLACE AND MOM HAS BEEN ADMINISTERED. ON GTF CONT TOLERATED, AT GOAL OF 60 M/HR. WOUND CARE DONE. WILL ENDORSE TO NOC SHIFT FOR STEVEN
--- NOTE | 2018-10-13 19:15 | NUR ---
TELE/RN INITIAL NOTES RECEIVED PT IN BED. A/OX3, MOUTHS WORDS. WITH INTACT TRACH ON VENT, SPO2 100%. NO SOB NOTED. HOB ELEVATED. GTUBE INTACT AND IN PLACED. WITH ONGOING GTF JEVITY AT 60 ML/HR, TOLERATING WELL. WITH ONGOING IVF D5NS AT 75 D5NS AT 75 ML/HR INFUSING WELL ON LHAND G20 IV LINE, RFA G20 HEPLOCK PATENT, C/D/I. PT IS S/P THORACENTESIS ON LLUNG, NO SIGNS OF BLEEDING ON SITE. SAFETY MEASURES IN PLACED. CALL LIGHT WITHIN EASY REACH. WILL CONT TO MONITOR
--- NOTE | 2018-10-13 19:26 | NUR ---
RECEIVED PT WITH TRACH PORTEX 6 ON THE VENT WITH NOTED SETTINGS. PT IS AWAKE ,ALERT AND FOLLOWS COMMAND. BREATHING TX GIVEN PER MD'S ORDER, NO ADVERSE REACTION NOTED . SX MODERATE AMOUNT OF YELLOW THICK SECRETIONS . VENT PLUGGED INTO RED OUTLET . ALARMS ARE SET AND AUDIBLE. AMBU BAG @ BEDSIDE. PATIENT TRACH IS SECURED AND PATENT. PT IS STABLE AND NO RESPIRATORY DISTRESS NOTED AT THIS TIME .WILL CONTINUE TO MONITOR PATIENT.
[2018-10-13 20:00] VITALS: BP 141/69
[2018-10-14] VITALS (7 sets, daily range): BP systolic 120–136; BP diastolic 61–76
[2018-10-14] MEDS: IPRATROPIUM NEB FS 0.5 MG/2.5 ML AMPUL.NEB NEB SCH ×4 (01:19→20:18)
[2018-10-14] MEDS: HYDROMORPHONE HCL 2 MG TABLET GT PRN ×4 (01:51→20:40)
[2018-10-14] MEDS: IV D5/ 0.9% NACL 1,000 ML IV PRN (04:22)
[2018-10-14] MEDS: HYDROCODONE/APAP 5/325MG 1 EACH TABLET GT PRN ×4 (04:23→23:29)
[2018-10-14] MEDS: hydrALAZINE HCL 10 MG TABLET GT SCH ×3 (04:23→20:40)
[2018-10-14] MEDS: PIPERACILLIN /TAZOBACTAM 3.375 G in IV D5W 100 ML IV SCH ×3 (05:03→21:38)
[2018-10-14 06:44] LABS: CALCIUM, SERUM 7.1 mg/dL (8.5-10.1); CREATININE 0.3 mg/dL (0.6-1.3); MAGNESIUM 1.7 mg/dL (1.8-2.4); POTASSIUM 3.8 mmol/L (3.5-5.1)
--- NOTE | 2018-10-14 06:52 | NUR ---
RN NOTES PT IN STABLE CONDITION. NO ACUTE CHANGES NOTED THROUGHOUT SHIFT. ALL NEEDS ANTICIPATED. SAFETY MEASURES AND ASPIRATION PRECAUTION OBSERVED AT ALL TIMES. ENDORSED TO AM RN FOR STEVEN
[2018-10-14] MEDS: BUDESONIDE RESPULE INH 0.5 MG/2 ML AMPUL.NEB IH SCH ×2 (07:06→20:18)
[2018-10-14 07:25] LABS: OCCULT BLOOD STOOL NEGATIVE (NEGATIVE)
--- NOTE | 2018-10-14 07:30 | NUR ---
INTERNATIONAL MARKETING SPECIALIST OPENING NOTES RECEIVED PT IN BED, TRACH TO VENT SETTINGS MD ORDERED. NO S/SX OF RESP DISTRESS. ON TELE SR. IV SITES C/D/P/I. GT FLUSHED; RUNNING JEVITY AT 60ML/HR. NO RESIDUAL. GT SITE C/D/I. CONDOM CATH IN PLACE DRAINING YELLOW URINE. POC DISCUSSED WITH PATIENT. BED IN LOCKED/LOWEST POSITION. CALL LIGHT IN REACH. WILL CONT TO MONITOR.
[2018-10-14] MEDS: ESCITALOPRAM OXALATE (10 MG) 10 MG TABLET GT SCH ×2 (08:26→08:32)
[2018-10-14] MEDS: DOCUSATE SODIUM LIQ 100 MG/10 ML UDC GT SCH ×2 (08:26→17:31)
[2018-10-14] MEDS: PANTOPRAZOLE 40 MG/PACK PACK GT SCH (08:26)
[2018-10-14] MEDS: ACIDOPHILUS/BULGARICUS 1 EACH TAB.CHEW GT SCH ×2 (08:26→17:31)
[2018-10-14] MEDS: AMIODARONE HCL 200 MG TABLET GT SCH ×2 (08:26→17:31)
[2018-10-14] MEDS: PROSOURCE / PROSTAT (PYXIS) 30 ML UDC GT SCH ×2 (08:27→17:32)
[2018-10-14] MEDS: LIDOCAINE 5% (PATCH) 1 EA PATCH TP SCH (08:27)
[2018-10-14] MEDS: NYSTATIN TOP POWDER 15 GM BOTTLE TP SCH ×2 (08:38→17:38)
[2018-10-14] MEDS: Z GUARD REMEDY 2 OZ OINT TP SCH ×2 (08:39→20:45)
--- NOTE | 2018-10-14 09:28 | NUR ---
RT TRACH TUBE IN PLACE, PATENT, AND SECURED. RECEIVED ON VENTILATOR CPAP 5 PSP 15, 40%. BREATH SOUNDS COARSE RHONCHI THROUGHOUT. MODERATE THICK BROWN YELLOW SECRETIONS. BACK UP TRACH AND AMBU BAG BY BEDSIDE. VENT PLUGGED ON RED OUTLET. VENT ALARMS ARE ON AND FUNCTIONING. Addendum: 10/14/18 at 0936 by LUI JONES RT Amended: Links added.
[2018-10-14] MEDS: Magnesium 1GM/D5W 100ML PREMIX 100 ML IV SCH ×2 (11:41→13:36)
[2018-10-14] MEDS: JEVITY 1.2 CAL 1,000 ML BOTTLE GT PRN (17:38)
--- NOTE | 2018-10-14 19:06 | NUR ---
CURB AND GUTTER LABORER CLOSING NOTES PT IN STABLE CONDITION. PT TOLERATED TREATMENTS WELL. WILL ENDORSE TO PM NURSE FOR STEVEN.
--- NOTE | 2018-10-14 20:00 | NUR ---
RN/TELE NOTES: RECEIVED PT. IN BED W/ HOB ELEVATED. ALERT AND ORIENTED X 3. ABLE TO MOUTH WORDS. ON MECH. VENT. TOLERATING SETTINGS WELL. NO FACIAL GRIMACES OR MOANING NOTED. ON TELE MONITOR W/ SR. W/ GTF PATENT AND INTACT W/ NO RESIDUAL NOTED. GT STOMA SITE LEAKING AND REDNESS NOTED. IVF TOLERATING WELL. CALL LIGHT W/REACH. WILL CONTINUE TO MONITOR.
--- NOTE | 2018-10-14 21:30 | NUR ---
RN/TELE NOTES: LISSY GALVIN CAME TO EVALUATE PT. FOR HIS GT SITE LEAKING. PER LISSY SURGERY CONSULT AND CULTURE OF THE STOMA SITE. DR. ELIAS CAME TO EVALUATE PT. AT ABOUT [address] ELIAS PLAN FOR PT. WILL BE TO PUT NEW GT TO ANOTHER SITE. PER DR. ELIAS HE WILL TALK TO LISSY GALVIN AND COORDINATE IT.
[2018-10-15] VITALS: BP_SYST 114; BP_SYST 135; BP_DIAS 67; BP_DIAS 78
[2018-10-15] MEDS: IPRATROPIUM NEB FS 0.5 MG/2.5 ML AMPUL.NEB NEB SCH ×4 (00:41→20:04)
[2018-10-15 04:00] VITALS: BP 139/69
[2018-10-15] MEDS: PIPERACILLIN /TAZOBACTAM 3.375 G in IV D5W 100 ML IV SCH ×3 (06:03→22:40)
[2018-10-15] MEDS: hydrALAZINE HCL 10 MG TABLET GT SCH ×3 (06:23→22:43)
[2018-10-15] MEDS: HYDROCODONE/APAP 5/325MG 1 EACH TABLET GT PRN ×2 (06:24→16:57)
[2018-10-15 07:11] LABS: BASOPHILS # (AUTO) 0.2 /CMM (0.0-0.2); BASOPHILS % (AUTO) 2.1 % (0.0-2.0); EOSINOPHILS % (AUTO) 0.5 % (0.0-6.0); HEMATOCRIT 34 % (39-51); HEMOGLOBIN 11.2 g/dL (13.5-17.5); LYMPHOCYTES # (AUTO) 0.6 /CMM (0.8-4.8); LYMPHOCYTES % (AUTO) 7.7 % (20.0-44.0); MEAN CORPUSCULAR HGB CONC 33 g/dl (31.0-36.0); MEAN CORPUSCULAR VOLUME 95 fL (80-96); MONOCYTES # (AUTO) 0.9 /CMM (0.1-1.30); MONOCYTES % (AUTO) 10.5 % (2.0-12.0); NEUTROPHILS # (AUTO) 6.6 /CMM (1.8-8.9); NEUTROPHILS % (AUTO) 79.2 % (43.0-81.0); PLATELET COUNT (AUTO) 145 /CMM (150-450); RED BLOOD CELL COUNT(AUTO) 3.52 MIL/uL (4.5-6.0); WHITE BLOOD COUNT (AUTO) 8.4 K/uL (4.3-11.0)
--- NOTE | 2018-10-15 07:30 | NUR ---
SPECIAL EDUCATOR OPENING NOTES RECEIVED REPORT FROM MODELING AND SIMULATION ANALYST RN. PT IS IN BED AWAKE AND IS ABLE TO MOUTH WORDS. A&OX3. PT IS ON A VENT AND J-TUBE FEEDING. PT J-TUBE SITE IS NOTED TO BE LEAKING. PT DENIES ANY SOB AT PRESENT MOMENT. BED IS LOCKED AND IN LOWEST POSITION WITH CALL LIGHT IN REACH. WILL CONTINUE TO MONITOR.
--- NOTE | 2018-10-15 07:37 | NUR ---
RN/TELE NOTES: REPORT GIVEN TO AM SHIFT NURSE FOR STEVEN.
[2018-10-15 07:40] LABS: POTASSIUM 4.2 mmol/L (3.5-5.1)
[2018-10-15 07:41] LABS: CALCIUM, SERUM 7.7 mg/dL (8.5-10.1); CREATININE 0.5 mg/dL (0.6-1.3); MAGNESIUM 1.7 mg/dL (1.8-2.4); PHOSPHORUS 3.5 mg/dL (2.5-4.9)
[2018-10-15 08:00] VITALS: BP 130/73
[2018-10-15] MEDS: DOCUSATE SODIUM LIQ 100 MG/10 ML UDC GT SCH ×2 (08:27→16:56)
[2018-10-15] MEDS: ESCITALOPRAM OXALATE (10 MG) 10 MG TABLET GT SCH (08:27)
[2018-10-15] MEDS: ACIDOPHILUS/BULGARICUS 1 EACH TAB.CHEW GT SCH ×2 (08:27→16:57)
[2018-10-15] MEDS: PANTOPRAZOLE 40 MG/PACK PACK GT SCH (08:27)
[2018-10-15] MEDS: LIDOCAINE 5% (PATCH) 1 EA PATCH TP SCH (08:28)
[2018-10-15] MEDS: AMIODARONE HCL 200 MG TABLET GT SCH ×2 (08:28→16:57)
[2018-10-15] MEDS: HYDROMORPHONE HCL 2 MG TABLET GT PRN ×4 (08:28→22:41)
[2018-10-15] MEDS: NYSTATIN TOP POWDER 15 GM BOTTLE TP SCH ×2 (09:05→16:58)
[2018-10-15] MEDS: PROSOURCE / PROSTAT (PYXIS) 30 ML UDC GT SCH ×2 (09:05→16:58)
[2018-10-15] MEDS: Z GUARD REMEDY 2 OZ OINT TP SCH ×2 (09:06→21:00)
[2018-10-15] MEDS: Magnesium 1GM/D5W 100ML PREMIX 100 ML IV SCH ×2 (11:05→12:17)
[2018-10-15] MEDS: JEVITY 1.2 CAL 1,000 ML BOTTLE GT PRN (11:14)
[2018-10-15 12:00] VITALS: BP 127/71
[2018-10-15] MEDS: BUDESONIDE RESPULE INH 0.5 MG/2 ML AMPUL.NEB IH SCH ×2 (13:30→20:08)
[2018-10-15 16:00] VITALS: BP 127/70
--- NOTE | 2018-10-15 18:03 | NUR ---
RT NOTE: RECEIVED PT ON ORDERED CPAP VENT SETTINGS. NO RESPIRATORY DISTRESS NOTED. TRACH CHECKED SECURE AND PATENTS. TXS GIVEN ORDERED WITH NO ADVERSE REACTIONS NOTED. SXD AND LAVAGED PT Q2 AND NEEDED. EMERGENCY EQUIPMENT @ BEDSIDE. ALARMS CHECKED ON AND AUDIBLE. Addendum: 10/15/18 at 1804 by DAMARIS MELLO RT Amended: Links added.
--- NOTE | 2018-10-15 19:39 | NUR ---
CARDING UTILITY TENDER CLOSING NOTES GAVE REPORT TO NETWORK CONTROLLER RN. PT IS IN BED AWAKE AND IS ABLE TO MOUTH WORDS. A&OX3. PT IS ON A VENT AND J-TUBE FEEDING. PT J-TUBE SITE IS NOTED TO BE LEAKING. PT DENIES ANY SOB AT PRESENT MOMENT. BED IS LOCKED AND IN LOWEST POSITION WITH CALL LIGHT IN REACH. WILL ENDORSE CONTINUITY OF CARE TO NETWORK CONTROLLER RN.
--- NOTE | 2018-10-15 19:50 | NUR ---
KLAUS RN OPENING NOTES RECEIVED REPORT FROM DAY SHIFT RN. PT IS IN BED AWAKE AND IS ABLE TO MOUTH WORDS. A&OX3. PT IS ON A VENT AND J-TUBE FEEDING. PT J-TUBE SITE IS NOTED TO BE LEAKING WITH CONTINUES GTF . PT DENIES ANY SOB AT PRESENT MOMENT. BED IS LOCKED AND IN LOWEST POSITION WITH CALL LIGHT IN REACH. WILL CONTINUE TO MONITOR.
[2018-10-15 20:00] VITALS: BP 114/70
[2018-10-15] MEDS: Z GUARD REMEDY 2 OZ OINT TP PRN (22:47)
[2018-10-16] VITALS (9 sets, daily range): BP systolic 100–131; BP diastolic 57–72
[2018-10-16] MEDS: IV D5/ 0.9% NACL 1,000 ML IV PRN (00:32)
[2018-10-16] MEDS: IPRATROPIUM NEB FS 0.5 MG/2.5 ML AMPUL.NEB NEB SCH ×4 (01:11→20:15)
--- NOTE | 2018-10-16 04:19 | NUR ---
RN NOTES PATIENT IS COMPLAINING OF PAIN 10/10 AND PATIENT REQUEST PAIN MEDICATION. PT IS NPO SINCE MIDNIGHT DUE TO EGD PROCEDURE AT 0700. CALLED SHOLA KING FOR NEW ORDER OF IV PAIN MEDICATION .AWAITING FOR 'S CALL BACK. WILL CONTINUE TO MONITOR PATIENT CLOSELY.
[2018-10-16] MEDS ORDERED: MORPHINE SULFATE INJ 2 MG/ML DISP.SYRIN IVP PRN (04:30)
--- NOTE | 2018-10-16 04:30 | NUR ---
rn note got a call from MD Ernestine Hinkle and new pain medication Morphine sulfate iv 1mg once order is in place. will administer the medication and monitor patient accordingly.
[2018-10-16] MEDS: hydrALAZINE HCL 10 MG TABLET GT SCH ×3 (05:00→21:51)
--- NOTE | 2018-10-16 05:10 | NUR ---
PATIENT RECEIVED ON TRACH TO VENT WITH SETTINGS OF CPAP 5, PS 15, 50% WITH A PORTEX 6 TRACH TUBE. SUCTIONED FOR MINIMAL, THINK, YELLOW SECRETIONS. GIVEN IN-LINE TREATMENTS WITH NO ADVERSE REACTIONS. AMBU BAG AT BEDSIDE. VENT AND PULSE OXIMETER ALARMS AUDIBLE AND VISIBLE. VENT PLUGGED INTO RED OUTLET. Addendum: 10/16/18 at 0510 by ISABELL GORMAN RT Amended: Links added.
[2018-10-16] MEDS: PIPERACILLIN /TAZOBACTAM 3.375 G in IV D5W 100 ML IV SCH ×3 (06:26→21:51)
[2018-10-16 07:17] LABS: CALCIUM, SERUM 7.5 mg/dL (8.5-10.1); CREATININE 0.4 mg/dL (0.6-1.3); MAGNESIUM 1.8 mg/dL (1.8-2.4); POTASSIUM 4.2 mmol/L (3.5-5.1)
[2018-10-16] MEDS ORDERED: ANESTHESIA TRAY IN PYXIS 1 EA TRAY MC ONE (07:40)
--- NOTE | 2018-10-16 07:55 | NUR ---
CRUSHER AND BLENDER OPERATOR NOTES RECEIVED BEDSIDE REPORT PATIENT AWAKE IN BED ABLE TO RESPOND TO VOICE AND TOUCH. A/O X4 ON VENT/CPAP TOLERATING SETTINGS ORDERED. SINUS ON THE TELE MONITOR. NO SIGNS OR SYMPTOMS OF RESPIRATORY DISTRESS C/O OF CHRONIC BACK PAIN HOB ELEVATED >30 DEGREES GTF ON HOLD D/T GT SITE LEAKING BEDSIDE PEG PLACEMENT TO BE DONE THIS AM IVF RUNNING TO RFA # 20 GAUGE D5NS @75 ML/HR L HAND IV @ 20 GAUGE SALINE LOCK SAFETY AND ASPIRATION PRECAUTIONS IN PLACE BED IN LOW POSITION CALL LIGHT WITHIN REACH. WILL CONT TO MONITOR ACCORDINGLY
--- NOTE | 2018-10-16 08:42 | NUR ---
RT PT REC'D TRACHED INTACT [facility] ORDERED SETTINGS ALARMS ON AND AUDIBLE BAG AND MASK AT HOB VENT PLUGGED IN RED OUTLET, SX THICK YELLOW MOD AMOUNT OF SECRETIONS, MAINTAINED SP02 > 92% NO SOB NOTED AT THIS TIME. WILL CONTINUE TO MONITOR Addendum: 10/16/18 at 0843 by DRE PATRICIO RT Amended: Links added.
[2018-10-16] MEDS: ESCITALOPRAM OXALATE (10 MG) 10 MG TABLET GT SCH (09:00)
[2018-10-16] MEDS: AMIODARONE HCL 200 MG TABLET GT SCH ×2 (09:00→16:46)
[2018-10-16] MEDS: NYSTATIN TOP POWDER 15 GM BOTTLE TP SCH ×2 (09:00→17:15)
[2018-10-16] MEDS: ACIDOPHILUS/BULGARICUS 1 EACH TAB.CHEW GT SCH ×2 (09:00→17:14)
[2018-10-16] MEDS: LIDOCAINE 5% (PATCH) 1 EA PATCH TP SCH (09:00)
[2018-10-16] MEDS: DOCUSATE SODIUM LIQ 100 MG/10 ML UDC GT SCH ×2 (09:00→16:46)
[2018-10-16] MEDS: Z GUARD REMEDY 2 OZ OINT TP SCH ×2 (09:00→21:51)
[2018-10-16] MEDS: PANTOPRAZOLE 40 MG/PACK PACK GT SCH (09:00)
[2018-10-16] MEDS: PROSOURCE / PROSTAT (PYXIS) 30 ML UDC GT SCH ×2 (09:00→17:14)
--- NOTE | 2018-10-16 09:30 | NUR ---
PATIENT SCHEDULED FOR GT PLACEMENT POSTPONED TILL 1400. PATIENT ALSO SCHEDULED FOR BRONCHOSCOPY @1430. PATIENT REMAINS NPO ON IVF D5NS@75ML/HR
[2018-10-16] MEDS: MORPHINE SULFATE INJ 2 MG/ML DISP.SYRIN IV PRN (09:50)
[2018-10-16] MEDS ORDERED: LORAZEPAM INJ 2 MG/ML VIAL IV ONE (14:00)
[2018-10-16] MEDS ORDERED: MORPHINE SULFATE INJ 10 MG/ML DISP.SYRIN IV ONE (14:00)
[2018-10-16] MEDS: HYDROCODONE/APAP 5/325MG 1 EACH TABLET GT PRN (14:01)
[2018-10-16] MEDS: BUDESONIDE RESPULE INH 0.5 MG/2 ML AMPUL.NEB IH SCH ×2 (14:08→21:12)
[2018-10-16] MEDS ORDERED: LIDOCAINE 2% GEL 30 ML TUBE TP ONE (14:30)
--- NOTE | 2018-10-16 14:31 | NUR ---
RT NOTE DR. MARX PERFORMED A BRONCHOSCOPY BEDSIDE. PROCEDURE WENT WELL WITHOUT ISSUES. POST BRONCHOSCOPY DR. MARX. ORDERED FOR PATIENT TO GO FROM CPAP MODE TO AC MODE OVERNIGHT. SETTINGS CHARTED. NO SOB NOTED AT THIS TIME. WILL CONTINUE TO MONITOR. Addendum: 10/16/18 at 1704 by DRE PATRICIO RT Amended: Links added.
[2018-10-16] MEDS ORDERED: MORPHINE SULFATE INJ 4 MG/ML DISP.SYRIN IV ONE (15:00)
--- NOTE | 2018-10-16 15:20 | NUR ---
ASSISTED DR MARX WITH BRONCHOSCOPY PATIENT TOLERATED WELL. ORDERS TO CONT PATIENT ON VENT SETTINGS OVER NIGHT AND RESUME CPAP IN THE AM
--- NOTE | 2018-10-16 16:08 | NUR ---
PT GTF RESUMED @ 70 ML/HR. PATIENT TO BE NPO AFTER MIDNIGHT TONIGHT 10/16 FRO EGD IN THE AM
--- NOTE | 2018-10-16 18:48 | NUR ---
FLORIST NOTES NO SIGNIFICANT CHANGES THROUGHOUT SHIFT. PATIENT A/O X4 CURRENTLY ON VENT AND TOLERATING SETTING WELL. BEDSIDE BRONCHOSCOPY DONE WITH BIOPSY SENT TO LAB FOR TECHNICAL SOLUTION ARCHITECT.ORDERS FOR PATIENT TO BE ON VENT THROUGHOUT THE NIGHT AND PLACED BACK ON CPAP IN THE AM NO C/O PAIN AT THIS TIME. CONDOM CATH PLACED WITH CLEAR YELLOW URINE DRAINING. GTF JEVITY 1.2 RESUMED @ 75 ML/HR TOLERATING WELL. PATIENT TO BE NPO AFTER MIDNIGHT FOR EGD AND PEG PLACEMENT D/T LEAKING SITE. KEPT CLEAN AND DRY ORAL CARE DONE. ALL CONSENTS SIGNED. WILL ENDORSE TO NOC. SAFETY AND ASPIRATION PRECAUTIONS IN PLACE HOB >30 DEGREES. SIDE RAILS X2 REPOSITIONED Q2HR ABLE TO MAKE NEEDS KNOWN AND ALL MET
--- NOTE | 2018-10-16 19:25 | NUR ---
REPORT ENDORSED TO NOC
--- NOTE | 2018-10-16 20:00 | NUR ---
PENCIL MAKER ADMITTING NOTES RECEIVED REPORT FROM PETER MORRIS. PATIENT A/A/O X3, ABLE TO MAKE NEEDS KNOWN & STATE PAIN BY MOUTHING WORDS. SOME LETHARGY NOTED BUT EASILY AROUSABLE. BREATHING EVEN & UNLABORED W/ TRACH INTACT & TOLERATING VENT SETTINGS AC 450, TV 12, FIO2 50%, PEEP 5. NO RESPIRATORY DISTRESS NOTED. ON TELE W/ SINUS RHYTHM, HR 80. LEFT HAND & RIGHT FOREARM IV #20 INTACT & PATENT W/ DRESSING CDI & IVF NS INFUSING WELL @ 75 ML/HR. GTUBE PATENT & FLUSHING WELL, GTF JEVITY RUNNING @ 70 ML/HR W/ NO RESIDUAL NOTED @ THIS TIME. SOME LEAKING NOTED AROUND G-TUBE STOMA SITE W/ DRESSING INTACT. ARRIOLA CATH DRAINING YELLOW URINE. DENIES ANY PAIN OR DISCOMFORT @ THIS TIME. HOB ELEVATED & SAFETY MEASURES IN PLACE W/ SIDE RAILS UP & BED ALARM ON. INSTRUCTED TO USE CALL LIGHT FOR ASSISTANCE. WILL CONTINUE TO MONITOR.
[2018-10-17] VITALS: BP 117/64
[2018-10-17] MEDS: IPRATROPIUM NEB FS 0.5 MG/2.5 ML AMPUL.NEB NEB SCH ×4 (01:18→19:49)
[2018-10-17 04:00] VITALS: BP 119/68
[2018-10-17] MEDS: hydrALAZINE HCL 10 MG TABLET GT SCH ×3 (05:00→21:16)
[2018-10-17] MEDS: IV D5/ 0.9% NACL 1,000 ML IV PRN (05:12)
[2018-10-17] MEDS: PIPERACILLIN /TAZOBACTAM 3.375 G in IV D5W 100 ML IV SCH ×3 (05:16→21:13)
[2018-10-17] MEDS: MORPHINE SULFATE INJ 2 MG/ML DISP.SYRIN IV PRN ×2 (06:34→14:48)
[2018-10-17 07:03] LABS: BASOPHILS % (AUTO) 0.2 % (0.0-2.0); EOSINOPHILS % (AUTO) 0.3 % (0.0-6.0); HEMATOCRIT 31 % (39-51); HEMOGLOBIN 10.6 g/dL (13.5-17.5); LYMPHOCYTES # (AUTO) 1.2 /CMM (0.8-4.8); LYMPHOCYTES % (AUTO) 12.6 % (20.0-44.0); MEAN CORPUSCULAR HGB CONC 34 g/dl (31.0-36.0); MEAN CORPUSCULAR VOLUME 95 fL (80-96); MONOCYTES # (AUTO) 0.6 /CMM (0.1-1.30); MONOCYTES % (AUTO) 6.2 % (2.0-12.0); NEUTROPHILS # (AUTO) 7.9 /CMM (1.8-8.9); NEUTROPHILS % (AUTO) 80.7 % (43.0-81.0); PLATELET COUNT (AUTO) 157 /CMM (150-450); RED BLOOD CELL COUNT(AUTO) 3.26 MIL/uL (4.5-6.0); WHITE BLOOD COUNT (AUTO) 9.8 K/uL (4.3-11.0)
[2018-10-17 07:06] LABS: BILIRUBIN,TOTAL 0.6 mg/dL (0.2-1.0); CALCIUM, SERUM 7.9 mg/dL (8.5-10.1); CREATININE 0.5 mg/dL (0.6-1.3); MAGNESIUM 1.7 mg/dL (1.8-2.4); PHOSPHORUS 3.4 mg/dL (2.5-4.9); TOTAL PROTEIN, SERUM 6.8 g/dL (6.4-8.2)
[2018-10-17 07:13] LABS: ALBUMIN 1.4 g/dL (3.4-5.0)
[2018-10-17] MEDS: BUDESONIDE RESPULE INH 0.5 MG/2 ML AMPUL.NEB IH SCH ×2 (07:14→21:54)
--- NOTE | 2018-10-17 07:30 | NUR ---
RN NOTES RECEIVED PATIENT IN BED, A/A/O X3, ABLE TO MAKE NEEDS KNOWN BY MOUTHING WORDS. DENIES ANY PAIN OR DISCOMFORT @ THIS TIMETRACH TO VENT, TOLERATING VENT SETTINGS, NO SOB NOTED. SINUS RHYTHM, HR 80 ON THE MONITOR, HR ON THE 70'S. IV ACCESS ON THE LEFT HAND & RIGHT FOREARM IV #20 INTACT & IN PLACE, PATENT ON FLUSHING , DRESSING CDI & IVF D5 NS INFUSING WELL @ 75 ML/HR. GTUBE PATENT & FLUSHING WELL BUT WITH SOME LEAKING. NO RESIDUAL NOTED. CLAMPED AT THIS TIME DUE TO PATIENT SCHEDULED FOR PEG REPLACEMENT.. ARRIOLA CATH IN PLACE, DRAINING VIA GRAVITY TO YELLOW URINE. HOB ELEVATED & SAFETY MEASURES OBSERVED AND MAINTAINED IN PLACE, SIDE RAILS UPX2, INSTRUCTED TO USE CALL LIGHT FOR HELP AND ASSISTANCE DISCUSSED PLAN OF CARE. CALL LIGHT PLACED WITHIN REACH. WILL CONTINUE TO MONITOR AND ANTICIPATE NEEDS.
[2018-10-17 08:00] VITALS: BP 129/70
[2018-10-17] MEDS: ESCITALOPRAM OXALATE (10 MG) 10 MG TABLET GT SCH (09:00)
[2018-10-17] MEDS: DOCUSATE SODIUM LIQ 100 MG/10 ML UDC GT SCH ×2 (09:00→17:01)
[2018-10-17] MEDS: AMIODARONE HCL 200 MG TABLET GT SCH ×2 (09:00→17:04)
[2018-10-17] MEDS: PROSOURCE / PROSTAT (PYXIS) 30 ML UDC GT SCH ×2 (09:00→17:04)
[2018-10-17] MEDS: ACIDOPHILUS/BULGARICUS 1 EACH TAB.CHEW GT SCH ×2 (09:00→17:04)
[2018-10-17] MEDS: PANTOPRAZOLE 40 MG/PACK PACK GT SCH (09:00)
[2018-10-17] MEDS: LIDOCAINE 5% (PATCH) 1 EA PATCH TP SCH (09:12)
[2018-10-17] MEDS: NYSTATIN TOP POWDER 15 GM BOTTLE TP SCH ×2 (09:12→17:04)
[2018-10-17] MEDS: Z GUARD REMEDY 2 OZ OINT TP SCH ×2 (09:13→21:25)
[2018-10-17 09:14] LABS: ABG OXYGEN SATURATION 98.5 % (92.0-98.5); ABG PCO2 40.1 mmHg (35.0-45.0); ABG PH 7.502 (7.350-7.450); AaDO2 152.4 mmHg; COHb 0.3 % (0.5-1.5); MetHb 0.6 % (0.0-1.5); O2Hb 97.6 % (94.0-97.0); PEEP,BG 5 cm H2O; SITE, ABG Right Radial; VENT MODE, BG CPAP 5 PS15
[2018-10-17] MEDS: HYDROMORPHONE HCL 2 MG TABLET GT PRN ×4 (09:29→23:58)
[2018-10-17] MEDS ORDERED: ANESTHESIA TRAY IN PYXIS 1 EA TRAY MC ONE (10:11)
[2018-10-17] MEDS: Magnesium 1GM/D5W 100ML PREMIX 100 ML IV SCH ×2 (11:00→11:54)
--- NOTE | 2018-10-17 11:26 | NUR ---
RN NOTES PEG REPLACEMENT STARTED.
--- NOTE | 2018-10-17 11:40 | NUR ---
RN NOTES PROCEDURE DONE. PATIENT SEDATED, PER ANESTHESIOLOGIST PATIENT WAS GIVEN PROPOFOL 200MG. BLOOD PRESSURE AT THIS TIME AT 88/ 85 HR AT 73, NO SIGN OF DISTRESS NOTED. ANESTHESIOLOGIST MADE AWARE AND HAD VERBALIZED THAT IT SHOULD GO BACK. PATIENT KEPT MONITORED.
--- NOTE | 2018-10-17 11:50 | NUR ---
RN NOTES BLOOD PRESSURE AT 87/ 55 MMHG, HR AT 70, SATURATION ON 100%, WILL CONTINUE TO MONITOR PATIENT
[2018-10-17 12:00] VITALS: BP 91/64
--- NOTE | 2018-10-17 12:02 | NUR ---
AT 1130 PLACED ON AC MODE W/ 100% FIO2 FOR BEDSIDE PROCEDURE. AMBUBAG AT BEDSIDE, PT STABLE, NO RESP DISTRESS NOTED, SPO2 @ 99-100% T/OUT THE PROCEDURE. Addendum: 10/17/18 at 1206 by MAGDY MCDONNELL RT Amended: Links added.
[2018-10-17] MEDS: JEVITY 1.2 CAL 1,000 ML BOTTLE GT PRN (14:47)
[2018-10-17 16:00] VITALS: BP 123/62
[2018-10-17] MEDS: SILVER NITRATE APPLICATOR 1 EA BOX TP ONE (18:00)
--- NOTE | 2018-10-17 19:43 | NUR ---
ECOLOGICAL MODELER NOTE REPORT GIVEN BEDSIDE. PATIENT A/0 X 2-3 ABLE TO MOUTH WORDS AND MAKE NEED KNOWN. PATIENT SHOWS NO S/S OF ACUTE DISTRESS. PATIENT DENIES SOB// CHEST PAIN. PATIENT DOES COMPLAIN OF PAIN 10/10 ON THE ABDOMEN. ABDOMEN IS SOFT BUT TENDER, AND NO RESIDUAL IS NOTED FROM THE FEEDING. PATIENT WAS GIVEN 10 MG DILAUDID PER MD ORDERS. PATIENT WAS ALSO REPOSITIONED FOR COMFORT. BED IN LOWEST LOCKED POSITION. PATIENT HAS L HAND 20 G RUNNING AT 75 ML/HR D5NS NO S.S OF INFILTRATION AND INFECTION. RN WILL CONTINUE TO MONITOR FOR CHANGES. CALL LIGHT IN HAND.
[2018-10-17 20:00] VITALS: BP 113/64
--- NOTE | 2018-10-17 20:05 | NUR ---
RN NOTES ENDORSED PATIENT FOR CONTINUITY OF CARE. NOT ON ANY FORM OF DISTRESS. ALL NURSING NEEDS ATTENDED AND MET. SAFETY MEASURES IN PLACE AT ALL TIMES. CALL LIGHT PLACED WITHIN REACH. PATIENT TOLERATING GT FEEDING AT 45CC/HR, NO GASTRIC RESIDUAL ON CHECKING
[2018-10-17] MEDS: HYDROCODONE/APAP 5/325MG 1 EACH TABLET GT PRN (21:17)
[2018-10-18] VITALS: BP 124/54
[2018-10-18] MEDS: ZOLPIDEM TARTRATE 5 MG TABLET GT PRN (00:03)
[2018-10-18] MEDS: IPRATROPIUM NEB FS 0.5 MG/2.5 ML AMPUL.NEB NEB SCH ×4 (01:17→19:44)
[2018-10-18] MEDS: MORPHINE SULFATE INJ 2 MG/ML DISP.SYRIN IV PRN ×4 (03:15→22:38)
[2018-10-18 04:00] VITALS: BP 127/62
[2018-10-18] MEDS: hydrALAZINE HCL 10 MG TABLET GT SCH ×3 (04:30→20:32)
[2018-10-18] MEDS: PIPERACILLIN /TAZOBACTAM 3.375 G in IV D5W 100 ML IV SCH ×3 (05:05→21:51)
--- NOTE | 2018-10-18 06:21 | NUR ---
GAS ENGINE OPERATOR NOTE PATIENT HAS NO S.S OF DISTRESS AT THIS TIME. TOLERATED THE NIGHT. ALL NEEDS MET. PATIENT SR IN 80'S ON THE MONITOR. DENIES PAIN OR DISCOMFORT. WILL ENDORSE POC TO AM FOR STEVEN. SAFETT PRECATIONS IN PLACE/ CALL LIGHT WITHIN HAND
[2018-10-18 07:49] LABS: CALCIUM, SERUM 7.7 mg/dL (8.5-10.1); CREATININE 0.4 mg/dL (0.6-1.3); MAGNESIUM 1.7 mg/dL (1.8-2.4); POTASSIUM 3.6 mmol/L (3.5-5.1)
[2018-10-18] MEDS: HYDROMORPHONE HCL 2 MG TABLET GT PRN ×3 (07:53→18:26)
[2018-10-18 08:00] VITALS: BP 122/66
--- NOTE | 2018-10-18 08:11 | NUR ---
TENNIS BALL COVER CEMENTER OPENING NOTE RECEIVED PATIENT A/0 X 2-3 ABLE TO MOUTH WORDS AND MAKE NEED KNOWN. PATIENT SHOWS NO SOB OR ACUTE DISTRESS. PATIENT DENIES SOB// CHEST PAIN. G-TUBE INTACT AND PATENT W/ NO RESIDUAL. L HAND 20 G IV RUNNING AT 75 ML/HR D5NS NO S.S OF INFILTRATION AND INFECTION. R FA #20 INTACT AND PATENT. WILL CONTINUE TO MONITOR FOR CHANGES. SAFETY MEASURES IN PLACE. CALL LIGHT IN HAND.
[2018-10-18] MEDS: Z GUARD REMEDY 2 OZ OINT TP SCH ×2 (09:00→21:55)
[2018-10-18] MEDS: DOCUSATE SODIUM LIQ 100 MG/10 ML UDC GT SCH ×2 (09:10→17:11)
[2018-10-18] MEDS: ACIDOPHILUS/BULGARICUS 1 EACH TAB.CHEW GT SCH ×2 (09:10→17:11)
[2018-10-18] MEDS: AMIODARONE HCL 200 MG TABLET GT SCH ×2 (09:10→17:12)
[2018-10-18] MEDS: LIDOCAINE 5% (PATCH) 1 EA PATCH TP SCH (09:11)
[2018-10-18] MEDS: PANTOPRAZOLE 40 MG/PACK PACK GT SCH (09:11)
[2018-10-18] MEDS: ESCITALOPRAM OXALATE (10 MG) 10 MG TABLET GT SCH (09:11)
[2018-10-18] MEDS: PROSOURCE / PROSTAT (PYXIS) 30 ML UDC GT SCH ×2 (09:11→17:13)
[2018-10-18] MEDS: BUDESONIDE RESPULE INH 0.5 MG/2 ML AMPUL.NEB IH SCH ×3 (09:13→21:14)
[2018-10-18] MEDS: Z GUARD REMEDY 2 OZ OINT TP PRN ×3 (10:16→21:54)
[2018-10-18] MEDS: NYSTATIN TOP POWDER 15 GM BOTTLE TP SCH ×2 (10:16→17:13)
[2018-10-18] MEDS ORDERED: Magnesium 1GM/D5W 100ML PREMIX 100 ML IV SCH (11:00)
[2018-10-18 12:00] VITALS: BP 133/81
[2018-10-18] MEDS: Magnesium 1GM/D5W 100ML PREMIX 1 G in PREMIX 1 EA IV SCH ×2 (12:20→13:20)
[2018-10-18 16:00] VITALS: BP 131/72
[2018-10-18] MEDS: JEVITY 1.2 CAL 1,000 ML BOTTLE GT PRN (16:19)
--- NOTE | 2018-10-18 19:55 | NUR ---
KLAUS RN OPENING NOTE RECEIVED PATIENT IN BED A/0 X 3 ABLE TO MOUTH WORDS AND MAKE NEED KNOWN. PATIENT SHOWS NO SOB OR ACUTE DISTRESS. PATIENT DENIES CHEST PAIN. G-TUBE INTACT AND PATENT W/ NO RESIDUAL. RIGHT FOREARM IV LINE RUNNING AT 75 ML/HR D5NS NO S.S OF INFILTRATION AND INFECTION. LEFT HAND #20 INTACT AND PATENT. WILL CONTINUE TO MONITOR FOR CHANGES. SAFETY MEASURES IN PLACE. CALL LIGHT WITHIN REACH. WILL CONTINUE TO MONITOR PATIENT CLOSELY.
[2018-10-18 20:00] VITALS: BP 151/79
--- NOTE | 2018-10-18 20:01 | NUR ---
WINDOWS SYSTEM ADMIN CLOSING NOTE PATIENT IN BED, A/0 X 2-3 ABLE TO MOUTH WORDS AND MAKE NEED KNOWN. PATIENT SHOWS NO SOB OR ACUTE DISTRESS. PATIENT DENIES SOB// CHEST PAIN. G-TUBE INTACT AND PATENT W/ NO RESIDUAL. R HAND 20 G IV INTACT AND PATENT. NO S.S OF INFILTRATION AND INFECTION. L FA #20 INTACT AND PATENT. WILL CONTINUE TO MONITOR FOR CHANGES. SAFETY MEASURES IN PLACE. CALL LIGHT IN HAND. CARE ENDORSED TO MACHINIST BENCH RN.
[2018-10-18] MEDS: HYDROCODONE/APAP 5/325MG 1 EACH TABLET GT PRN (20:30)
[2018-10-18] MEDS: IV D5/ 0.9% NACL 1,000 ML IV PRN (21:54)
[2018-10-19] VITALS (10 sets, daily range): BP systolic 123–161; BP diastolic 69–94
[2018-10-19] MEDS: ZOLPIDEM TARTRATE 5 MG TABLET GT PRN (00:19)
[2018-10-19] MEDS: IPRATROPIUM NEB FS 0.5 MG/2.5 ML AMPUL.NEB NEB SCH ×4 (01:41→20:02)
[2018-10-19] MEDS: HYDROMORPHONE HCL 2 MG TABLET GT PRN ×4 (03:30→20:23)
[2018-10-19] MEDS: hydrALAZINE HCL 10 MG TABLET GT SCH ×3 (04:28→20:23)
[2018-10-19] MEDS: MORPHINE SULFATE INJ 2 MG/ML DISP.SYRIN IV PRN ×3 (05:16→17:57)
[2018-10-19] MEDS: PIPERACILLIN /TAZOBACTAM 3.375 G in IV D5W 100 ML IV SCH ×3 (05:40→21:11)
--- NOTE | 2018-10-19 07:27 | NUR ---
RN OPENING NOTE PT IN BED AT LOWEST AND LOCKED POSITION WITH SIDE RAILS UP X2, A/O X3 MOUTHS WORDS, NOTED TO ON VENT WITH VENT SETTINGS NOTED, RECEIVES INTERMITTENT CPAP PRN, BEDBOUND, IV IS PATENT AND INTACT, S/P PEG PLACEMENT ON THE OF THIS MONTH AND BRONCHOSCOPY ON THE , SAFETY PRECAUTIONS IN PLACE, CALL LIGHT WITHIN REACH, WILL MONITOR PT ACCORDINGLY
[2018-10-19] MEDS: BUDESONIDE RESPULE INH 0.5 MG/2 ML AMPUL.NEB IH SCH ×2 (07:51→20:07)
[2018-10-19] MEDS: DOCUSATE SODIUM LIQ 100 MG/10 ML UDC GT SCH ×2 (08:03→16:02)
[2018-10-19] MEDS: ESCITALOPRAM OXALATE (10 MG) 10 MG TABLET GT SCH (08:04)
[2018-10-19] MEDS: AMIODARONE HCL 200 MG TABLET GT SCH ×2 (08:04→16:03)
[2018-10-19] MEDS: ACIDOPHILUS/BULGARICUS 1 EACH TAB.CHEW GT SCH ×2 (08:04→16:02)
[2018-10-19] MEDS: PANTOPRAZOLE 40 MG/PACK PACK GT SCH (08:04)
[2018-10-19] MEDS: LIDOCAINE 5% (PATCH) 1 EA PATCH TP SCH (08:04)
[2018-10-19] MEDS: PROSOURCE / PROSTAT (PYXIS) 30 ML UDC GT SCH ×2 (08:05→16:04)
[2018-10-19] MEDS: Z GUARD REMEDY 2 OZ OINT TP SCH ×2 (08:06→20:23)
[2018-10-19] MEDS: NYSTATIN TOP POWDER 15 GM BOTTLE TP SCH ×2 (08:06→16:05)
[2018-10-19] MEDS: JEVITY 1.2 CAL 1,000 ML BOTTLE GT PRN (14:53)
--- NOTE | 2018-10-19 18:42 | NUR ---
RN CLOSING NOTE PT IN BED AT LOWEST AND LOCKED POSITION WITH SIDE RAILS UP X2, A/O X3 ON VENT RESTING COMFORTABLY IN BED, IV IS PATENT AND INTACT, SAFETY PRECAUTIONS IN PLACE, CALL LIGHT WITHIN REACH, ALL NEEDS ATTENDED TO, WILL ENDORSE TO [employer]IONICS TEST TECHNICIAN RN FOR STEVEN.
--- NOTE | 2018-10-19 19:15 | NUR ---
LATH TIER NOTE RECEIVED PT RESTING WITH HOB ELEVATED, TRACH TO VENT ON SETTINGS ORDERED, AOX3, MOUTHS WORDS, ON TELE SR, NO S/SX OF CARDIAC OR RESPIRATORY DISTRESS NOTED, CONDOM CATHETER DRAINING TO GRAVITY, RFA #20G WITH D5NS AT 75 ML/HR, L HAND #20G SL, BOTH PATENT FLUSHING WELL, PEG TUBE WITH JEVITY AT 60ML/HR, 0 RESIDUAL, SAFETY MAINTAINED AT ALL TIMES, BED IN LOW, LOCKED POSITION, CALL LIGHT WITHIN REACH, WILL CONTINUE TO MONITOR FOR ANY CHANGES IN CONDITION.
[2018-10-20] VITALS: BP 142/81
[2018-10-20] MEDS: HYDROMORPHONE HCL 2 MG TABLET GT PRN ×4 (00:23→13:52)
[2018-10-20] MEDS: IV D5/ 0.9% NACL 1,000 ML IV PRN (01:44)
[2018-10-20] MEDS: HYDROCODONE/APAP 5/325MG 1 EACH TABLET GT PRN ×3 (01:44→12:28)
[2018-10-20] MEDS: IPRATROPIUM NEB FS 0.5 MG/2.5 ML AMPUL.NEB NEB SCH ×3 (01:59→13:39)
[2018-10-20 04:00] VITALS: BP 132/71
[2018-10-20] MEDS: hydrALAZINE HCL 10 MG TABLET GT SCH ×2 (05:37→12:28)
[2018-10-20] MEDS: PIPERACILLIN /TAZOBACTAM 3.375 G in IV D5W 100 ML IV SCH ×2 (05:38→16:04)
--- NOTE | 2018-10-20 06:17 | NUR ---
PATIENT RECEIVED ON TRACH TO VENT WITH PORTEX 6 TUBE, SETTINGS OF AC 12, 450 VT, 50%, 5. SUCTIONED WITH LAVAGE FOR MINIMAL, THICK, PINKISH-RED SECRETIONS. GIVEN IN-LINE TREATMENTS WITH NO ADVERSE REACTIONS. AMBU BAG AT BEDSIDE. VENT AND PULSE OXIMETER ALARMS AUDIBLE AND VISIBLE. VENT PLUGGED INTO RED OUTLET. Addendum: 10/20/18 at 0619 by ISABELL GORMAN RT Amended: Links added.
--- NOTE | 2018-10-20 07:20 | NUR ---
RN OPENING NOTES RECEIVED BEDSIDE REPORT, PATIENT IN BED AWAKE AND ALERT - MOUTHS WORDS. ON VENT, SATING >90%. HAS A RIGHT FA #20 WITH D5NS RUNNING AT 75 ML/HR. ALSO HAS A LEFT HAND #20 SALINE LOCKED FOR ANBX. HAS A CONDOM CATH WITH CLEAR AND YELLOW URINE. NO COMPLAINS OF PAIN AT THIS TIME. NO SOB. DC PLANNING TODAY. BED LOCKED AND IN LOW POSITION. CALL LIGHT WITHIN REACH. WILL CONTINUE TO MONITOR
[2018-10-20 08:00] VITALS: BP 149/76
--- NOTE | 2018-10-20 08:30 | NUR ---
RN NOTES PATIENT WAS COMPLAINING OF PAIN. ASKED FOR DILAUDID, BUT DILAUDID IS NOT DUE FOR 2 MORE HOURS. ADMINISTERED NORCO FOR GENERALIZED PAIN 11/03.
[2018-10-20] MEDS: ESCITALOPRAM OXALATE (10 MG) 10 MG TABLET GT SCH (08:44)
[2018-10-20] MEDS: ACIDOPHILUS/BULGARICUS 1 EACH TAB.CHEW GT SCH (08:44)
[2018-10-20] MEDS: PANTOPRAZOLE 40 MG/PACK PACK GT SCH (08:44)
[2018-10-20] MEDS: PROSOURCE / PROSTAT (PYXIS) 30 ML UDC GT SCH (08:44)
[2018-10-20] MEDS: AMIODARONE HCL 200 MG TABLET GT SCH (08:45)
[2018-10-20] MEDS: DOCUSATE SODIUM LIQ 100 MG/10 ML UDC GT SCH (08:45)
[2018-10-20] MEDS: LIDOCAINE 5% (PATCH) 1 EA PATCH TP SCH (08:45)
[2018-10-20] MEDS: NYSTATIN TOP POWDER 15 GM BOTTLE TP SCH (08:48)
[2018-10-20] MEDS: Z GUARD REMEDY 2 OZ OINT TP PRN (08:48)
[2018-10-20] MEDS: Z GUARD REMEDY 2 OZ OINT TP SCH (08:49)
[2018-10-20 09:00] VITALS: BP 149/76
[2018-10-20] MEDS: BUDESONIDE RESPULE INH 0.5 MG/2 ML AMPUL.NEB IH SCH (09:24)
[2018-10-20] MEDS: JEVITY 1.2 CAL 1,000 ML BOTTLE GT PRN (09:46)
[2018-10-20 12:28] VITALS: BP 126/82
--- NOTE | 2018-10-20 16:09 | NUR ---
RN NOTES FORGOT TO SCAN ZOSYN, GIVEN HALF THE DOSE BEFORE THE PATIENT LEFT TO GO BACK TO SNF
--- NOTE | 2018-10-20 16:10 | NUR ---
COMPUTER SYSTEMS INTEGRATOR NOTES PATIENT LEFT VIA AMBULANCE. ALL MEDS WERE GIVEN. ZOSYN WAS NOT FINISHED, GAVE HALF OF THE DOSE. REPORT GIVEN TO ARTEM MELENDEZ, TALKED TO ALEXANDRA WHARTON. NO COMPLAINS OF PAIN OR ANY SOB BEFORE LEAVING.
[2018-10-20] MEDS ORDERED: CHLORHEXIDINE GLUCONATE 15 ML UDC MM SCH (17:00)
== END 2018-10-20 16:00 | DRG 870 ==
LOC: ER 19:17 → TELE1 22:17 → MEDSG1 10-16 10:07 → TELE1 10-17 07:13
PROVIDERS: ADMIT Internal Medicine; ATTEND Internal Medicine Nephrology
PROC: 5A1955Z Respiratory Ventilation, Greater than 96 Consecutive Hours (ICD-10-PCS; principal; 2018-10-09)
PROC: 0W9B3ZZ Drainage of Left Pleural Cavity, Percutaneous Approach (ICD-10-PCS; 2018-10-13)
PROC: 0B9F8ZX Drainage of Right Lower Lung Lobe, Via Natural or Artificial Opening Endoscopic, Diagnostic (ICD-10-PCS; 2018-10-16)
PROC: 0B9D8ZX Drainage of Right Middle Lung Lobe, Via Natural or Artificial Opening Endoscopic, Diagnostic (ICD-10-PCS; 2018-10-16)
PROC: 0B9J8ZX Drainage of Left Lower Lung Lobe, Via Natural or Artificial Opening Endoscopic, Diagnostic (ICD-10-PCS; 2018-10-16)
PROC: 0D2DXUZ Change Feeding Device in Lower Intestinal Tract, External Approach (ICD-10-PCS; 2018-10-17)
DX: A41.9 Sepsis, unspecified organism (principal); J18.9 Pneumonia, unspecified organism; N17.0 Acute kidney failure with tubular necrosis; E43 Unspecified severe protein-calorie malnutrition; J96.01 Acute respiratory failure with hypoxia; E87.1 Hypo-osmolality and hyponatremia; J44.0 Chronic obstructive pulmonary disease with (acute) lower respiratory infection; E87.2 Acidosis; T17.890A Other foreign object in other parts of respiratory tract causing asphyxiation, initial encounter; N39.0 Urinary tract infection, site not specified; R64 Cachexia; Z99.11 Dependence on respirator [ventilator] status; Z68.1 Body mass index [BMI] 19.9 or less, adult; J90 Pleural effusion, not elsewhere classified; J98.11 Atelectasis; R18.8 Other ascites; Y83.8 Other surgical procedures as the cause of abnormal reaction of the patient, or of later complication, without mention of misadventure at the time of the procedure; E86.0 Dehydration; Z87.891 Personal history of nicotine dependence; I10 Essential (primary) hypertension; G89.29 Other chronic pain; X58.XXXA Exposure to other specified factors, initial encounter; Y93.9 Activity, unspecified; I48.91 Unspecified atrial fibrillation; Z93.0 Tracheostomy status; L89.150 Pressure ulcer of sacral region, unstageable; S50.11XA Contusion of right forearm, initial encounter; L98.8 Other specified disorders of the skin and subcutaneous tissue; M62.50 Muscle wasting and atrophy, not elsewhere classified, unspecified site; D64.9 Anemia, unspecified; R74.0 Nonspecific elevation of levels of transaminase and lactic acid dehydrogenase [LDH]; R59.0 Localized enlarged lymph nodes; I48.0 Paroxysmal atrial fibrillation; R91.8 Other nonspecific abnormal finding of lung field; B35.1 Tinea unguium; Z43.4 Encounter for attention to other artificial openings of digestive tract; Y92.129 Unspecified place in nursing home as the place of occurrence of the external cause
CPT/HCPCS: 31623; 31720; 36415; 36600; 43246; 71045-TC; 71250-TC; 76942-TC; 80048-TC; 80053-TC; 80061-TC; 80076-TC; 80202-TC; 81000-TC; 82272-TC; 82728-TC; 82803-TC; 83540-TC; 83605-TC; 83735-TC; 84100-TC; 84484-TC; 85025-TC; 85730-TC; 86706; 86803; 87040-TC; 87070-TC; 87081-TC; 87086-TC; 87186-TC; 87340; 88112-TC; 88305-TC; 88312-TC; 89051-TC; 94002-TC; 94003-TC; 94760-TC; 94762-TC; 99082-TC; A4216; A4217; A4349; A4623; A6253; A6402; G0378; J2060; J2270; J2543; J2704; J3370; J3475; J7030; J7042; J7060

== ENCOUNTER 2018-11-25 16:50 | Emergency (ER) | payer MEDICARE, MEDICAID ==
[~2018-11-25] VITALS: Ht 182.9 cm; Wt 46.3 kg
[~2018-11-25 16:50] MED LIST: ACET-73 PO; AMIO200T4 GT; BUDE1AMP IH; CHOL100040 GT; DOCU50LI13 GT; ESCI10TA GT; HYDR-4075 GT; HYDR2TAB4 GT; IPRA3AMP23 IH; L. A1TAB10 GT; LACT10SO GT; LANS15CA15 GT; LIDO30AD10 TP; MULT9LIQ6 GT; NALO0.4D4 IV; PROT946L GT; VIT500LI GT
[2018-11-25] MEDS ORDERED: ZOLP5TAB8 GT (17:38)
[2018-11-25] MEDS ORDERED: CHLO473M3 MM (17:38)
[2018-11-25] MEDS ORDERED: CYAN1TAB17 PO (17:38)
[2018-11-25] MEDS ORDERED: DIPH-530 GT (17:38)
[2018-11-25] MEDS ORDERED: HYDR4TAB4 GT (17:38)
[2018-11-25] MEDS ORDERED: MAG355OR18 GT (17:38)
[2018-11-25] MEDS ORDERED: DIATR MEGLU/DIATRIZOATE SODIUM 30 ML BOTTLE (GASTROGRAPHIN) ONE (17:59)
--- NOTE | 2018-11-25 18:01 | NUR ---
PATIENT BIB [facility] WITH REPORT GT MALFUNCTION. PATIENT AWAKE, ALERT AND ORIENTED X 4, NO ACUTE DISTRESS. DENIES ANY PAIN OR DISCOMFORT. GT IN PLACE ON ABDOMEN. RESTING ON BED COMFORTABLY. AWAITING MD.
--- NOTE | 2018-11-25 18:55 | NUR ---
[facility] ETA 2014 TRIP #[id number]
--- NOTE | 2018-11-25 18:59 | NUR ---
PATIENT RESTING ON BED COMFORTABLY. AWAKE, ALERT AND ORIENTED, NO ACUTE DISTRESS. NO CHANGES IN LOC. WILL CONTINUE TO MONITOR
--- NOTE | 2018-11-25 19:01 | NUR ---
PLACED CALL TO ARTEM MELENDEZ ([phone]) AND GAVE REPORT TO ALEXANDRA MCCOY CORPORATE ACCOUNTANT
--- NOTE | 2018-11-25 19:39 | NUR ---
REPORT GIVEN TO DAMON MORRIS FOR STEVEN
[2018-11-25] MEDS ORDERED: HYDROMORPHONE 1 MG/1 ML DISP.SYRIN ONE (19:40)
[2018-11-25] MEDS ORDERED: HYDROMORPHONE INJ 2 MG/ML DISP.SYRIN IV ONE (20:00)
--- NOTE | 2018-11-25 20:29 | NUR ---
Christianne lantigua in ED - 11/25/18 at 2041 by ZAMZAM TRANSFERRED TOT HTE THIRD FLOOR IN ASTABLE CONDITION UNDER ACLS PROTOCOL
--- NOTE | 2018-11-25 20:30 | NUR ---
TRANSFERRED TO THE FACILITY IN STABLE CONDITION. PICKED UP BY [facility]IA [facility]
[2018-11-25 20:51] VITALS: BP 112/71
== END 2018-11-25 20:52 | disposition home or self-care (01) ==
LOC: ER 17:02
DX: K94.23 Gastrostomy malfunction (principal); I10 Essential (primary) hypertension; I48.0 Paroxysmal atrial fibrillation; J44.9 Chronic obstructive pulmonary disease, unspecified; Z87.09 Personal history of other diseases of the respiratory system
CPT/HCPCS: 74018; 96374; 99283; J1170; Q9963

== ENCOUNTER 2018-11-27 15:00 | Inpatient (IN) | payer MEDICARE, MEDICAID ==
[~2018-11-27] VITALS: Ht 182.9 cm; Wt 43.5 kg
[~2018-11-27 15:00] MED LIST changes: +CHLO473M3 MM; -CHOL100040 GT; +CYAN1TAB17 PO; +DIPH-530 GT; -HYDR-4075 GT; -HYDR2TAB4 GT; +HYDR4TAB4 GT; -L. A1TAB10 GT; +MAG355OR18 GT; -NALO0.4D4 IV; -PROT946L GT; +ZOLP5TAB8 GT
--- NOTE | 2018-11-27 15:07 | NUR ---
DEBBIE FROM [facility]; S/P GT PULLED OUT AT 9AM BY NURSE; REPORTS 23FR GTUBE. ATTACHED TO THE MONITOR. C/O STOMA PAIN. NEEDS ATTENDED.
[2018-11-27] MEDS ORDERED: HYDROMORPHONE 1 MG/1 ML DISP.SYRIN ONE (15:25)
[2018-11-27] MEDS ORDERED: IV NS 0.9% 500 ML BAG IV ONE (15:30)
[2018-11-27] MEDS ORDERED: HYDROMORPHONE 1 MG/1 ML DISP.SYRIN IM ONE (15:30)
--- NOTE | 2018-11-27 15:30 | NUR ---
DR. SAUNDERS ATTEMPTED TO INSERT A 24 AND 18 THAI INTO THE STOMA, UNSUCCESSFUL. PER MD, PATIENT WILL BE ADMITTED FOR G-TUBE INSERTION.
[2018-11-27 15:43] LABS: BASOPHILS % (AUTO) 0.7 % (0.0-2.0); EOSINOPHILS % (AUTO) 1.9 % (0.0-6.0); HEMATOCRIT 34 % (39-51); HEMOGLOBIN 11.1 g/dL (13.5-17.5); LYMPHOCYTES # (AUTO) 1.2 /CMM (0.8-4.8); LYMPHOCYTES % (AUTO) 22.4 % (20.0-44.0); MEAN CORPUSCULAR HGB CONC 33 g/dl (31.0-36.0); MEAN CORPUSCULAR VOLUME 89 fL (80-96); MONOCYTES # (AUTO) 0.7 /CMM (0.1-1.30); MONOCYTES % (AUTO) 12.3 % (2.0-12.0); NEUTROPHILS # (AUTO) 3.3 /CMM (1.8-8.9); NEUTROPHILS % (AUTO) 62.7 % (43.0-81.0); PLATELET COUNT (AUTO) 234 /CMM (150-450); RED BLOOD CELL COUNT(AUTO) 3.78 MIL/uL (4.5-6.0); WHITE BLOOD COUNT (AUTO) 5.3 K/uL (4.3-11.0)
[2018-11-27] MEDS ORDERED: VIT500LI GT (15:45)
[2018-11-27] MEDS ORDERED: ONDA4TAB5 GT (15:45)
[2018-11-27] MEDS ORDERED: ACET650S26 GT (15:45)
[2018-11-27] MEDS ORDERED: NYST15OI2 TP (15:45)
[2018-11-27] MEDS ORDERED: FOLI1TAB16 GT (15:45)
[2018-11-27] MEDS ORDERED: IPRA3AMP23 IH (15:45)
[2018-11-27] MEDS ORDERED: HYDR-4075 GT (15:45)
[2018-11-27 15:49] LABS: CALCIUM, SERUM 8.4 mg/dL (8.5-10.1); CREATININE 0.4 mg/dL (0.6-1.3)
--- NOTE | 2018-11-27 16:20 | NUR ---
CALLED FOR MED-SURGE BED, TURNED IN MOVE SHEET, PAGED DR BANKS.
--- NOTE | 2018-11-27 16:52 | NUR ---
PAGED LÓPEZ HINTON FOR LINING LAYER MD FOR " TO ."
[2018-11-27] MEDS ORDERED: diphenhydrAMINE HCL 50 MG/ML VIAL ONE (17:21)
[2018-11-27] MEDS ORDERED: diphenhydrAMINE HCL 50 MG/ML VIAL IV ONE (17:30)
--- NOTE | 2018-11-27 17:37 | NUR ---
REPORT GIVEN TO TYRONE MORRIS.
--- NOTE | 2018-11-27 18:26 | NUR ---
PATIENT TRANSFERRED TO ROOM 328-1, IN STABLE CONDITION.
--- NOTE | 2018-11-27 18:30 | NUR ---
ADMISSION NOTE PT WAS BROUGHT UP VIA GURNEY AT THIS TIME, A/OX4 BREATHING EVEN AND UNLABORED ON 3L VIA TRACH, NO S/S OR COMPLAINTS OF ANY PAIN OR DISTRESS, GTUBE SITE ON LEFT SIDE OF ABDOMEN IS RED/PINK WITH NO VERY LITTLE DRAINAGE NOTED, IV IS PATENT AND INTACT, SAFETY PRECAUTIONS IN PLACE, CALL LIGHT WITHIN REACH, WILL ENDORSE TO NIGHT RN FOR STEVEN.
--- NOTE | 2018-11-27 19:05 | NUR ---
MS RN OPENING NOTES Received patient in bed, alert, oriented x 3. Breathing even and unlabored. Not in any distress. On O2 at 3LPM via trach. Patient has IV line on RFA g#20, intact and patent. GTube site on left adbdomen noted to be red with scant drainage- cleansed with NS and covered with dry gauze. Safety measures in place; call light within reach. Bed in low, locked position. Will continue to monitor accordingly
--- NOTE | 2018-11-27 19:38 | NUR ---
RN NOTES Called [facility] for admitting orders. Awaiting call back
[2018-11-27 20:00] VITALS: BP 127/69
--- NOTE | 2018-11-27 20:30 | NUR ---
RN NOTES Called [facility] exchange again for admission orders. Awaiting for call back
--- NOTE | 2018-11-27 20:40 | NUR ---
RN NOTES Dr. Ernestine Hinkle called back for admitting orders. Orders noted and carried out
[2018-11-27] MEDS: MORPHINE SULFATE INJ 2 MG/ML DISP.SYRIN IV PRN (20:55)
--- NOTE | 2018-11-27 20:56 | NUR ---
RN NOTES Patient c/o lower back pain, 03/05. VS normal. Morphine 2mg IV given as ordered. Will continue to monitor accordingly
[2018-11-27] MEDS ORDERED: ONDANSETRON HCL/PF 4 MG/2 ML VIAL IV PRN (21:00)
[2018-11-27] MEDS: IV NS 0.9% 1,000 ML IV PRN (21:11)
[2018-11-28] VITALS (13 sets, daily range): BP systolic 109–147; BP diastolic 63–83
[2018-11-28] MEDS: MORPHINE SULFATE INJ 2 MG/ML DISP.SYRIN IV PRN ×3 (00:55→11:28)
--- NOTE | 2018-11-28 00:56 | NUR ---
RN NOTES Patient c/o lower back pain, 02/03. VS normal. Morphine 2mg IV given as ordered. Will continue to monitor accordingly
--- NOTE | 2018-11-28 05:14 | NUR ---
RN NOTES Patient c/o back pain, 03/05. VS normal. Morphine 2mg IV given as ordered. Will continue to monitor accordingly
--- NOTE | 2018-11-28 07:00 | NUR ---
MS RN CLOSING NOTES Patient resting in bed, alert, oriented x 4. Breathing even and unlabored. Not in any distress. Patient has T-piece at 5LPM, Fio2- 28%. Peripheral IV infusing at 75mL/hr. Patient c/o back pain, relieved by morphine. All needs attended. No acute changes overnight. Safety measures in place. Will endorse STEVEN to oncoming RN
--- NOTE | 2018-11-28 07:30 | NUR ---
M/S RN NOTES PATIENT AWAKE, LYING IN BED, ALERT AND ORIENTED X4. PATIENT IN NO RESPIRATORY DISTRESS, NO C/O PAIN AT THIS TIME. SKIN WARM TO TOUCH, IVF OF NS RUNNING AT 75ML/HR ON THE RFA #20G, INTACT AND PATENT, NO REDNESS, NO INFILTRATION NOTED. PATIENT'S NEEDS ATTENDED, BED ON LOWEST LOCKED POSITION, CALL LIGHT WITHIN REACH. WILL CONTINUE TO MONITOR.
[2018-11-28 07:42] LABS: EOSINOPHILS % (AUTO) 2.9 % (0.0-6.0); HEMATOCRIT 34 % (39-51); MEAN CORPUSCULAR HGB CONC 33 g/dl (31.0-36.0); MEAN CORPUSCULAR VOLUME 89 fL (80-96); MONOCYTES # (AUTO) 0.6 /CMM (0.1-1.30); MONOCYTES % (AUTO) 11.8 % (2.0-12.0); NEUTROPHILS # (AUTO) 3.1 /CMM (1.8-8.9); NEUTROPHILS % (AUTO) 63.3 % (43.0-81.0); PLATELET COUNT (AUTO) 222 /CMM (150-450); RED BLOOD CELL COUNT(AUTO) 3.77 MIL/uL (4.5-6.0); WHITE BLOOD COUNT (AUTO) 4.9 K/uL (4.3-11.0)
[2018-11-28 07:56] LABS: CALCIUM, SERUM 8.4 mg/dL (8.5-10.1); CREATININE 0.5 mg/dL (0.6-1.3)
--- NOTE | 2018-11-28 10:22 | NUR ---
WOUND CARE CONSULT: PT FOLLOWED BY PLASTIC SURGERY TEAM FOR WOUND/SKIN ISSUES. DEFER TO SURGICAL TEAM FOR WOUND TREATMENT PLAN. RECOMMENDATIONS MADE FOR SKIN PROTECTION AND DISCUSSED WITH NURSING STAFF. ISOFLEX LOW AIRLOSS BED TO BE PLACED. PT IS INCONTINENT. G TUBE TO BE REPLACED (CAME OUT AT NURSING FACILITY). WILL SEE PRN.
[2018-11-28] MEDS ORDERED: Z GUARD REMEDY 2 OZ OINT TP PRN (10:30)
[2018-11-28] MEDS: Z GUARD REMEDY 2 OZ OINT TP SCH (11:31)
[2018-11-28] MEDS: CLOTRIMAZOLE 1% 15 GM TUBE TP SCH ×2 (13:30→17:00)
[2018-11-28] MEDS ORDERED: FENTANYL PF 100MCG/2ML AMPUL ONE (14:16)
--- NOTE | 2018-11-28 14:40 | NUR ---
M/S RN NOTES PATIENT WENT TO SURGERY FOR PEG REPLACEMENT WITH DR. RANGEL. PATIENT'S VSS STABLE, NO RESPIRATORY DISTRESS. SURGERY AND ANESTHASIA CONSENTS SIGNED.
[2018-11-28] MEDS ORDERED: HYDROMORPHONE 1 MG/1 ML DISP.SYRIN ONE (15:27)
--- NOTE | 2018-11-28 15:50 | NUR ---
ICU/RN: Pt received from OR for post-op recovery, S/P failed EGD with PEG placement. Pt SPO2 in 80's; pt awake, alert x4, denies SOB. Pt bagged, noted with difficulty maintaining sats >92%. RT at bedside placed on mechanical ventilator, settings prescribed by anesthesiologist Dr Mark. 100% FiO2 required to maintain goal saturation. Administered dilaudid 1mg IVP x1 per MD order as part of recovery orders. Reassessed; effective with 2/10 pain. Bedside report received from HÉCTOR Carter RN for STEVEN.
--- NOTE | 2018-11-28 16:15 | NUR ---
ICU/RN: Dr Chirinos notified and aware of Dr Mark's request for ventilator management. RN followed up with Dr Barba for surgical eval per Dr Yoo request. Awaiting call back. Pt currently resting comfortably in bed, no distress. Old GT site with surgicel, covered with gauze by Dr Yoo. No active bleeding noted.
[2018-11-28] MEDS: IV NS 0.9% 1,000 ML IV PRN (16:43)
[2018-11-28] MEDS ORDERED: diphenhydrAMINE HCL 50 MG/ML VIAL IV ONE (17:30)
--- NOTE | 2018-11-28 18:45 | NUR ---
ICU/RN: GLENIS Wilkinson at bedside for surgical consult. Plan to insert feeding tube at bedside shortly. Awaiting delivery of supplies. Requesting dilaudid for pain management during procedure.
[2018-11-28] MEDS: HYDROMORPHONE 1 MG/1 ML DISP.SYRIN IV PRN ×2 (19:18→23:12)
--- NOTE | 2018-11-28 19:23 | NUR ---
ICU/RN: GLENIS Wilkinson at bedside for feeding tube insertion. Dilaudid administered as requested for pain. Bedside report given to oncoming nurse for STEVEN.
--- NOTE | 2018-11-28 19:30 | NUR ---
ICU/STRETCHING MACHINE OPERATOR HELLEN DIRECTOR SPEECH AT BEDSIDE TO PLACE G/TUBE. ALEXANDRA BACH GAVE DILAUDID 1MG. CONSENT SIGNED FOR PROCEDURE. PT TOLERATED THIS WELL. STAT KUB PLACED IN COMPUTER WITH GASTROGRAFIN CONTRAST. ORDER PLACED IN COMPUTER AND AWAIT RADIOLOGY TO DO THIS. PT'S CALL LIGHT WITHIN REACH.
[2018-11-28] MEDS ORDERED: DIATR MEGLU/DIATRIZOATE SODIUM 30 ML BOTTLE (GASTROGRAPHIN) ONE (19:31)
--- NOTE | 2018-11-28 19:40 | NUR ---
ICU/MANAGER HVAC XRAY DID KUB, BOARD WINDER AT BEDSIDE AWARE OF RESULTS. HOWEVER WAIT FOR DEFINITE RESULTS READ BY RADIOLOGIST. ALSO AT THIS TIME RT AT BEDSIDE DUE TO LOW SATURATION OF 70'S. PLACED WARM BLANKETS ON PT.RT AT BEDSIDE FOR ABOUT 10 MINUTES, FIO2 WAS INCREASED TO 100%. SATURATION SLOWLY CAME UP TO 85-86%. WILL CONTINUE TO CLOSELY MONITOR THIS PT.
[2018-11-28] MEDS: TRIAMCINOLONE ACETONIDE 0.1% CR 15 GM TUBE TP SCH (19:46)
--- NOTE | 2018-11-28 19:50 | NUR ---
ICU/BUILDING INSULATION INSTALLER RECEIVED REPORT FROM DAY NURSE. SEE FLOWSHEET FOR ASSESSMENT, ALONG WITH SKIN ISSUES THAT PT MAY HAVE ALONG WITH THE INTERVENTIONS TO EACH OF THESE. PT WAS TURNED AND REPOSITIONED FOR COMFORT AND CARE, POST KUB. WILL CONTINUE TO MONITOR THIS PT. NO ACUTE DISTRESS SEEN AT THIS TIME. CALL LIGHT WITHIN REACH.
--- NOTE | 2018-11-28 23:15 | NUR ---
ICU/DENTISTRY TEACHER PT COMPLAINED OF BACK PAIN RATED AT 10/10. NOTIFIED CHARGE NURSE WHO WAS ABLE TO GIVE PRN DOSE OF DILAUDID 1MG IVP. PT WAS TURNED AND REPOSITIONED FOR COMFORT AND CARE. CALL LIGHT WITHIN REACH.
--- NOTE | 2018-11-28 23:35 | NUR ---
ICU/ROOF TILER PT COMPLAINED OF NAUSEA. NOTIFIED CHARGE NURSE WHO WAS ABLE TO GIVE PRN DOSE OF ZOFRAN IVP. CALL LIGHT WITHIN REACH. WILL CONTINUE TO MONITOR THIS PT AND HIS PAIN ALONG WITH NAUSEA.
[2018-11-29] VITALS (28 sets, daily range): BP systolic 96–134; BP diastolic 37–73
--- NOTE | 2018-11-29 01:50 | NUR ---
ICU/CONCRETE ENGINEERING TECHNICIAN FIO2 WAS DECREASED DOWN TO 90% FROM 100. PT HAD BEEN SATURATING 70'S AT THE START OF THE SHIFT AND HAD A PANIC ATTACK. WILL CONTINUE TO MONITOR THIS PT AND HIS SATURATION. CALL LIGHT WITHIN REACH.
[2018-11-29] MEDS: HYDROMORPHONE 1 MG/1 ML DISP.SYRIN IV PRN ×6 (03:09→23:00)
--- NOTE | 2018-11-29 03:20 | NUR ---
ICU/SUPERVISOR RECLAMATION PT COMPLAINED OF BACK PAIN RATED AT 10/10. NOTIFIED CHARGE NURSE WHO WAS ABLE TO GIVE PRN DOSE OF DILAUDID 1MG IVP. PT WAS TURNED AND REPOSITIONED FOR COMFORT AND CARE. CALL LIGHT WITHIN REACH. WILL CONTINUE TO MONITOR THIS PT.
--- NOTE | 2018-11-29 04:00 | NUR ---
ICU/MOUNTER CLARINETS PT WAS GIVEN AM CARE, ALONG WITH ORAL CARE. PT REMAINS ON CURRENT VENT SETTINGS, WITH SATURATION AT 96-100%. PT WAS TURNED AND REPOSITIONED FOR COMFORT AND CARE. WILL CONTINUE TO MONITOR THIS PT. NO ACUTE DISTRESS SEEN AT THIS TIME
--- NOTE | 2018-11-29 04:20 | NUR ---
ICU/MULE DEVELOPER FIO2 WAS DECREASED DOWN TO 80% FROM 90. PT HAD BEEN SATURATING 70'S AT THE START OF THE SHIFT AND HAS INCREASED THROUGH OUT SHIFT, PT ALSO HAD A PANIC ATTACK DURING SHIFT. WILL CONTINUE TO MONITOR THIS PT AND HIS SATURATION. CALL LIGHT WITHIN REACH.
[2018-11-29] MEDS: IV NS 0.9% 1,000 ML IV PRN ×2 (04:21→17:50)
--- NOTE | 2018-11-29 05:01 | NUR ---
RT NOTE PT REC'D TRACHED ON [facility] VENT ON AC MODE. NO RESP DISTRESS OR SOB NOTED. PT AWAKE AND ALERT. TRACH IS PATENT AND SECURED. PT REFUSED SX'D THROUGHOUT SHIFT, RN AWARE. ALARMS ARE SET AND AUDIBLE. VENT PLUGGED INTO RED OUTLET. AMBU BAG BEDSIDE. Addendum: 11/29/18 at 0511 by ENRRIQUE MATTHEW RT Amended: Links added.
--- NOTE | 2018-11-29 05:05 | NUR ---
ICU/BILLET INSPECTOR AM LABS WERE DONE, AWAIT FOR ANY ABNORMAL RESULTS.
--- NOTE | 2018-11-29 06:30 | NUR ---
ICU/RETREAD BUILDER NOTICED BROWNISH, FOWL SMELLING LIQUID FROM J/TUBE. PT AWARE OF THIS TOO. ASKED PT IF THIS IS SOMETHING THAT IS NORMAL, DUE TO THE STOMACH TUBE BEING A J/TUBE, PT SAID NO. RADIOLOGIST REPOST SAID THAT THE FEEDING TUBE IS IN THE SMALL BOWEL. CHARGE NURSE AWARE OF THE XRARY REPORT. PASS ON TO DAY SHIFT TO NOTIFIED MD, PT IS CURRENTLY NPO.J/TUBE IS NOT BEING USED FOR ANYTHING CURRENTLY.
--- NOTE | 2018-11-29 06:42 | NUR ---
ICU/GANG SUPERVISOR PT COMPLAINED OF BACK PAIN RATED AT 10/10. NOTIFIED CHARGE NURSE WHO WAS ABLE TO GIVE PRN DOSE OF DILAUDID 1MG IVP. PT WAS TURNED AND REPOSITIONED FOR COMFORT AND CARE. CALL LIGHT WITHIN REACH. WILL CONTINUE TO MONITOR THIS PT.
--- NOTE | 2018-11-29 07:20 | NUR ---
WELL TREATMENT OFFSIDER NOTE RECEIVED REPORT FROM PM NURSE.PATIENT IN BED.VITAL SIGNS STABLE.ON VENT.TOLERATING SETTINGS WELL ON FIO2 70%.SATURATING 96%.IV ON RFA WITH NS@75CC/HR.SAFETY AND ASPIRATION PRECAUTIONS IN PLACE.CALL LIGHT IN REACH.BED ALARM ON.WILL CONTINUE TO MONITOR.
[2018-11-29] MEDS: Z GUARD REMEDY 2 OZ OINT TP SCH (08:32)
[2018-11-29] MEDS: TRIAMCINOLONE ACETONIDE 0.1% CR 15 GM TUBE TP SCH ×2 (08:33→16:15)
--- NOTE | 2018-11-29 09:18 | NUR ---
NOTCHING PRESS OPERATOR NOTE SEEN BY ,PROTOTYPE ENGINEER MANAGER ,UPDATE PATIENT CONDITION,MADE AWARE ABOUT LOW TIDAL VOLUME.AND NO LABS AND X RAY DONE TODAY.GOT NEW ORDER TO CHANGE TO COOL AEROSOL@28%.GOT NEW ORDER FRO LAB AND C XRAY.RT AT BEDSIDE .WILL CONTINUE TO MONITOR.
--- NOTE | 2018-11-29 09:27 | NUR ---
PT. PLACED INTO COOL AEROSOL @ 28% FIO2 VIA TRACH MASK ORDER. Addendum: 11/29/18 at 0957 by QIAN HEMPHILL RT Amended: Links added.
[2018-11-29] MEDS: ALBUTEROL FS 2.5 MG/0.5 ML VIAL.NEB NEB SCH ×3 (09:30→19:11)
[2018-11-29] MEDS: FAMOTIDINE (20 MG) 20 MG TABLET PO SCH (09:39)
[2018-11-29] MEDS: ENOXAPARIN SODIUM 40 MG/0.4 ML DISP.SYRIN SQ SCH (09:39)
[2018-11-29] MEDS: CLOTRIMAZOLE 1% 15 GM TUBE TP SCH ×2 (11:54→16:15)
[2018-11-29 12:06] LABS: ABG BASE EXCESS -4.3 mmol/L; ABG OXYGEN SATURATION 91.8 % (92.0-98.5); ABG PH 7.379 (7.350-7.450); ABG PO2 64.4 mmHg (75.0-100.0); AaDO2 180.6 mmHg; COHb 0.6 % (0.5-1.5); MetHb 0.6 % (0.0-1.5); O2Hb 90.7 % (94.0-97.0); SITE, ABG Right Brachial; VENT MODE, BG 40% COOL AEROSOL
--- NOTE | 2018-11-29 13:30 | NUR ---
MATERIALS RECYCLER NOTE SEEN BY CHRISTINE QUINTERO.UPDATED ABOUT PATIENT CONDITION.MADE AWARE ABOUT MED RECON NOT DONE YET.GOT NEW ORDERS.FAXED TO THE PHARMACY.SPOKE TO JLUIS .CONFIRMED THAT THEY RECEIVED MED RECON.WILL CONTINUE TO MONITOR.ABG RESULT RELAYED TO .NNO.WILL CONTINUE TO MONITOR.
--- NOTE | 2018-11-29 14:15 | NUR ---
TAR WORKER NOTE SEEN BY ,UPDATED ABOUT PATIENT CONDITION.MADE AWARE ABOUT GT SITE LEAKING.TOLD THAT TO WAIT FOR SURGERY DOCTOR TO SEE PATIENT AND F/U WITH TUBE FEEDING.
[2018-11-29] MEDS ORDERED: ACETAMINOPHEN 650 MG/20.3 ML UDC GT PRN (14:57)
[2018-11-29] MEDS ORDERED: IPRATROPIUM NEB FS 0.5 MG/2.5 ML AMPUL.NEB NEB PRN (14:57)
[2018-11-29] MEDS ORDERED: LACTULOSE 10 G/15 ML UDC (PYXIS) GT PRN (14:57)
[2018-11-29] MEDS ORDERED: MAG HYDROX/AL HYDROX/SIMETH 30 ML UDC GT PRN (14:57)
[2018-11-29] MEDS ORDERED: BUDESONIDE RESPULE INH 0.5 MG/2 ML AMPUL.NEB IH SCH (14:57)
[2018-11-29] MEDS ORDERED: DOCUSATE SODIUM LIQ 100 MG/10 ML UDC GT PRN (15:00)
[2018-11-29] MEDS ORDERED: ALBUTEROL FS 2.5 MG/3 ML VIAL.NEB NEB PRN (15:30)
[2018-11-29] MEDS: AMIODARONE HCL 200 MG TABLET GT SCH (17:25)
[2018-11-29] MEDS: diphenhydrAMINE HCL ELIX 25 MG/10 ML UDC PO PRN (17:25)
--- NOTE | 2018-11-29 18:46 | NUR ---
ART STUDIO TEACHER CLOSING NOTE PATIENT IN BED.AXOX4.VITAL SIGNS STABLE.COOL AEROSOL 25%.SATURATING 94%.IV ON RFA WITH NS@75CC/HR.SAFETY AND ASPIRATION PRECAUTIONS IN PLACE.CALL LIGHT IN REACH.BED ALARM ON.WAITING FOR SURG TEAM TO CONSULT PATIENT FOR INITIATION OF GT FEEDING AND PO INTAKE.OK TO GIVE MEDS THROUGH MOUTH IF PATIENT PASS BEDSIDE SWALLOW PER DR.SORA KING.WILL ENDORSE TO PM NURSE FOR STEVEN.
--- NOTE | 2018-11-29 19:00 | NUR ---
PATTERNATOR NOTES RECEIVED PATIENT AWAKE,ALERT,COHERENT . WITH TRACHEOSTOMY TO TRACHE COLLAR 40% BUT ABLE TO TALK AND SWALLOW WITH NO DIFFICULTY.CACHECTIC ,VERY FRAIL LOOKING , WEAK BUT ABLE TO MOVE FROM SIDE TO SIDE WITH ASSISTANCE.JEJUNOSTOMY TUBE ,INTACT BUT LEAKING BILEOUS DRAINAGE AROUND SITE. PATIENT C/O A SLIGHT PAIN AND DISCOMFORT AT SITE. NOT IN ANY DISTRESS,BUT NOTED COPIOUS SECRETIONS FROM TRACHEOSTOMY, PULMONARY TOILETING DONE, ASPIRATION PRECAUTION OBSERVED. NOTED SOME RASH(INDURATED) ON LEFT HIP AND LEFT POSTERIOR SHOULDER AREA,.COMFORT CARE DONE,NEEDS ATTENDED.
[2018-11-29] MEDS: BUDESONIDE RESPULE INH 0.5 MG/2 ML AMPUL.NEB IH SCH (19:11)
[2018-11-29] MEDS: IPRATROPIUM NEB FS 0.5 MG/2.5 ML AMPUL.NEB NEB SCH (19:11)
[2018-11-29] MEDS: ZOLPIDEM TARTRATE 5 MG TABLET GT PRN (20:29)
[2018-11-29] MEDS: hydrALAZINE HCL 10 MG TABLET GT SCH (20:30)
--- NOTE | 2018-11-29 21:30 | NUR ---
SEEN BY DR. JACK (ID),CAME TO EVALUATE RASH ON LEFT HIP/LEFT POSTERIOR SHOULDER,ALSO NOTED THE FUNGAL INFECTION OF THE RIGHT FINGERNAILS.
[2018-11-29] MEDS: MUPIROCIN OINT 2% 22 GM TUBE TP SCH (22:00)
[2018-11-30] VITALS (32 sets, daily range): BP systolic 94–134; BP diastolic 46–82
--- NOTE | 2018-11-30 | NUR ---
DINKEY DISPATCHER NOTES REMAINS STABLE,TOLERATING TRACHE COLLAR @ 40 %, NOT IN ANY DISTRESS.BUT C/O INTERMITTENTLY BACK PAIN AND GENERALIZED SORENESS.
[2018-11-30] MEDS: IPRATROPIUM NEB FS 0.5 MG/2.5 ML AMPUL.NEB NEB SCH ×4 (01:04→19:28)
[2018-11-30] MEDS: HYDROMORPHONE 1 MG/1 ML DISP.SYRIN IV PRN ×5 (02:43→19:02)
--- NOTE | 2018-11-30 04:00 | NUR ---
CHAIR INSPECTOR AND LEVELER NOTES REMAINS STABLE,NOT IN ANY DISTRESS, AM CARE DONE, J TUBE SITE STILL LEAKING BILEOUS DRAINAGE(MODERATE AMOUNT),PATIENT C/O JUST SLIGHT SORENESS AT INSERTION SITE.
[2018-11-30] MEDS: hydrALAZINE HCL 10 MG TABLET GT SCH ×3 (05:21→21:39)
[2018-11-30] MEDS: IV NS 0.9% 1,000 ML IV PRN (06:35)
--- NOTE | 2018-11-30 07:00 | NUR ---
REPORT GIVEN TO KRYSTAL MONET RN.PATIENT REMAINS STABLE.
--- NOTE | 2018-11-30 07:05 | NUR ---
RN NOTES RECEIVED ON BED, A/Ox3, ASKIN FOR NEW PAPERS TO READ. PT HAS TRACH COLLAR WITH 40% O2 ,TRACH CARE DONE, NO SOB NOTED,PT IS ABLE TO TALK , ON TELE SR HR IN 60'S , J-TUBE INTACT,DRESSING CLEAN, DRY NO DISTRESS, NS AT 75CC /HR RUNNING VIA R FA IV SITE G 20 , SITE CLEAN, DRY AND INTACT, SR UP X3, CALL LIGHT WITHIN EASY REACH, BED LOCKED AND IN LOWEST POSITION, CONTINUE TO MONITOR
[2018-11-30] MEDS: BUDESONIDE RESPULE INH 0.5 MG/2 ML AMPUL.NEB IH SCH ×2 (07:30→19:28)
[2018-11-30] MEDS: ALBUTEROL FS 2.5 MG/0.5 ML VIAL.NEB NEB SCH ×3 (08:08→19:28)
[2018-11-30 08:10] LABS: BASOPHILS % (AUTO) 0.7 % (0.0-2.0); EOSINOPHILS % (AUTO) 0.9 % (0.0-6.0); HEMATOCRIT 34 % (39-51); HEMOGLOBIN 10.9 g/dL (13.5-17.5); LYMPHOCYTES # (AUTO) 0.9 /CMM (0.8-4.8); MEAN CORPUSCULAR HGB CONC 32 g/dl (31.0-36.0); MEAN CORPUSCULAR VOLUME 89 fL (80-96); MONOCYTES # (AUTO) 0.6 /CMM (0.1-1.30); MONOCYTES % (AUTO) 7.6 % (2.0-12.0); NEUTROPHILS # (AUTO) 5.9 /CMM (1.8-8.9); NEUTROPHILS % (AUTO) 78.8 % (43.0-81.0); PLATELET COUNT (AUTO) 208 /CMM (150-450); RED BLOOD CELL COUNT(AUTO) 3.79 MIL/uL (4.5-6.0); WHITE BLOOD COUNT (AUTO) 7.5 K/uL (4.3-11.0)
[2018-11-30 08:22] LABS: CREATININE 0.5 mg/dL (0.6-1.3); POTASSIUM 3.5 mmol/L (3.5-5.1)
[2018-11-30] MEDS ORDERED: DEXTROSE 10% IN WATER 0 ML IV ONE (08:28)
[2018-11-30] MEDS ORDERED: DEXTROSE 10% IN WATER 250 ML BAG IV ONE (08:40)
[2018-11-30] MEDS: FOLIC ACID 1 MG TABLET GT SCH (08:41)
[2018-11-30] MEDS: MULTIVIT W/MINERALS 1 TAB TABLET GT SCH (08:41)
[2018-11-30] MEDS: ESCITALOPRAM OXALATE (10 MG) 10 MG TABLET GT SCH (08:41)
[2018-11-30] MEDS: AMIODARONE HCL 200 MG TABLET GT SCH ×2 (08:42→16:34)
[2018-11-30] MEDS: PANTOPRAZOLE 40 MG/PACK PACK GT SCH (08:42)
[2018-11-30] MEDS: FAMOTIDINE (20 MG) 20 MG TABLET PO SCH (08:42)
[2018-11-30] MEDS: Z GUARD REMEDY 2 OZ OINT TP SCH (08:43)
[2018-11-30] MEDS: ENOXAPARIN SODIUM 40 MG/0.4 ML DISP.SYRIN SQ SCH (08:43)
[2018-11-30] MEDS: CLOTRIMAZOLE 1% 15 GM TUBE TP SCH ×2 (08:44→16:36)
[2018-11-30] MEDS: LIDOCAINE 5% (PATCH) 1 EA PATCH TP SCH (08:45)
[2018-11-30] MEDS ORDERED: DEXTROSE 50%-WATER 50 ML DISP.SYRIN IVP ONE (09:00)
[2018-11-30] MEDS ORDERED: IV D5W 1,000 ML IV ONE (09:00)
--- NOTE | 2018-11-30 09:00 | NUR ---
RN NOTES CALL RECEIVED FROM LAB BG=49, ACCU CHECK DONE , BG=40 , PT IS ASYMPTOMATIC, A/Ox3, D50 1/2 AMP GIVEN IV , DR KING NOTIFED , BG UP TO 101, PT MARYELLEN ANY DISTRESS , CONTINUE TO MONITOR.
[2018-11-30] MEDS: MUPIROCIN OINT 2% 22 GM TUBE TP SCH ×2 (09:23→21:39)
[2018-11-30] MEDS ORDERED: JEVITY 1.2 CAL 1,000 ML BOTTLE GT SCH (11:30)
[2018-11-30] MEDS: diphenhydrAMINE HCL ELIX 25 MG/10 ML UDC PO PRN ×2 (11:44→21:39)
[2018-11-30] MEDS ORDERED: IV D5/ 0.9% NACL 1,000 ML IV ONE (12:30)
[2018-11-30] MEDS ORDERED: JEVITY 1.2 CAL 1,000 ML BOTTLE GT PRN (13:00)
[2018-11-30] MEDS: BLOOD SUGAR DIAGNOSTIC 1 EACH STRIP IN SCH ×3 (13:20→15:20)
--- NOTE | 2018-11-30 14:00 | NUR ---
RN NOTES BG STABLE, PT EATING PUREE DIET WELL, NO SWALLOWING PROBLEM NOTED , CONTINUE TO MONITOR .
--- NOTE | 2018-11-30 18:00 | NUR ---
RN NOTES PT WATCHING TV , VSS STABLE, SR UP x3, CALL LIGHT WITHIN EASY REACH, BED LOCKED AND IN LOWEST POSITION, WILL ENDOSE TO SHIPPING POINT INSPECTOR NURSE FOR CONTINUITY OF CARE.
--- NOTE | 2018-11-30 19:30 | NUR ---
CLINICAL LAW PROFESSOR INITIAL SHIFT NOTES RECEIVED PATIENT IN BED, AWAKE , ALERT, ABLE TO VERBALIZE NEEDS. NOTED WITH TRACH COLLAR, COOL AEROSOL @ 40% FIO2, BUT ABLE TO TALK AND SWALLOW WITH NO DIFFICULTY. THICK HUMPHRIES/GREEN COLORED SECRETIONS ABLE TO ASSIST WITH TURNING AND REPOSITIONING BUT FRAIL AND CACHETIC IN APPEARANCE. JT INTACT BUT LEAKING, THICK BILIOUS DRAINAGE AROUND SITE. CALL LIGHT WITHIN EASY REACH, BED IN LOWEST AND LOCKED POSITION. WILL CONTINUE TO CLOSELY MONITOR
[2018-11-30] MEDS: ZOLPIDEM TARTRATE 5 MG TABLET GT PRN (21:39)
[2018-12-01] VITALS (25 sets, daily range): BP systolic 104–147; BP diastolic 42–77
[2018-12-01] MEDS: IPRATROPIUM NEB FS 0.5 MG/2.5 ML AMPUL.NEB NEB SCH ×4 (01:20→19:54)
[2018-12-01] MEDS: HYDROMORPHONE 1 MG/1 ML DISP.SYRIN IV PRN ×4 (02:26→19:10)
[2018-12-01 04:31] LABS: BASOPHILS % (AUTO) 0.5 % (0.0-2.0); EOSINOPHILS % (AUTO) 1.6 % (0.0-6.0); HEMATOCRIT 34 % (39-51); HEMOGLOBIN 11.4 g/dL (13.5-17.5); LYMPHOCYTES # (AUTO) 0.9 /CMM (0.8-4.8); LYMPHOCYTES % (AUTO) 15.5 % (20.0-44.0); MEAN CORPUSCULAR HGB CONC 33 g/dl (31.0-36.0); MEAN CORPUSCULAR VOLUME 89 fL (80-96); MONOCYTES # (AUTO) 0.5 /CMM (0.1-1.30); MONOCYTES % (AUTO) 8.6 % (2.0-12.0); NEUTROPHILS # (AUTO) 4.4 /CMM (1.8-8.9); NEUTROPHILS % (AUTO) 73.8 % (43.0-81.0); PLATELET COUNT (AUTO) 194 /CMM (150-450); RED BLOOD CELL COUNT(AUTO) 3.81 MIL/uL (4.5-6.0); WHITE BLOOD COUNT (AUTO) 5.9 K/uL (4.3-11.0)
[2018-12-01 04:50] LABS: CALCIUM, SERUM 7.7 mg/dL (8.5-10.1); CREATININE 0.4 mg/dL (0.6-1.3); MAGNESIUM 1.3 mg/dL (1.8-2.4); PHOSPHORUS 2.6 mg/dL (2.5-4.9); POTASSIUM 3.2 mmol/L (3.5-5.1)
[2018-12-01] MEDS: hydrALAZINE HCL 10 MG TABLET GT SCH ×3 (05:30→21:07)
--- NOTE | 2018-12-01 06:55 | NUR ---
FABRICATION SUPERVISOR NOTES PATIENT LAYING COMFORTABLY IN BED, S/P DILAUDID. PATIENT VERBALIZES EFFECTIVENESS OF PAIN MEDICATION FROM 01/02 MARTIN TO 07/06. PATIENT TOLERATING FIO2 @ 40% WELL, NO S/S OF RESPIRATORY DISTRESS. WILL ENDORSE THE PATIENT TO THE AM SHIFT NURSE FOR CONTINUITY OF CARE, NPO SINCE MIDNIGHT FOR SCHEDULED SURGICAL PROCEDURE THIS AM.
[2018-12-01] MEDS: BUDESONIDE RESPULE INH 0.5 MG/2 ML AMPUL.NEB IH SCH ×2 (07:30→19:54)
[2018-12-01] MEDS: ALBUTEROL FS 2.5 MG/0.5 ML VIAL.NEB NEB SCH ×3 (08:17→19:54)
[2018-12-01] MEDS: Z GUARD REMEDY 2 OZ OINT TP SCH (08:19)
[2018-12-01] MEDS: MULTIVIT W/MINERALS 1 TAB TABLET GT SCH (08:26)
[2018-12-01] MEDS: ENOXAPARIN SODIUM 40 MG/0.4 ML DISP.SYRIN SQ SCH (08:26)
[2018-12-01] MEDS: ESCITALOPRAM OXALATE (10 MG) 10 MG TABLET GT SCH (08:26)
[2018-12-01] MEDS: AMIODARONE HCL 200 MG TABLET GT SCH ×2 (08:26→16:47)
[2018-12-01] MEDS: FOLIC ACID 1 MG TABLET GT SCH (08:26)
[2018-12-01] MEDS: FAMOTIDINE (20 MG) 20 MG TABLET PO SCH (08:26)
[2018-12-01] MEDS: PANTOPRAZOLE 40 MG/PACK PACK GT SCH (08:26)
--- NOTE | 2018-12-01 09:00 | NUR ---
ICU/RN: Spoke with Dr Barba and updated on pt status. Informed of newly inserted J-tube leak. Per MD, he will defer to Dr Yoo for management.
--- NOTE | 2018-12-01 09:15 | NUR ---
ICU/RN: Lidoderm patch applied mid upper back.
[2018-12-01] MEDS: Magnesium 1GM/D5W 100ML PREMIX 100 ML IV SCH ×4 (09:47→12:59)
[2018-12-01] MEDS: LIDOCAINE 5% (PATCH) 1 EA PATCH TP SCH (09:47)
[2018-12-01] MEDS: MUPIROCIN OINT 2% 22 GM TUBE TP SCH ×2 (09:50→21:07)
[2018-12-01] MEDS: CLOTRIMAZOLE 1% 15 GM TUBE TP SCH ×2 (09:51→16:47)
[2018-12-01] MEDS ORDERED: POTASSIUM CHLORIDE 20 MEQ POWDER PACKET GT SCH (12:30)
[2018-12-01] MEDS: POTASSIUM CL. PREMIX PERIPHER. 50 ML IV SCH ×4 (13:04→16:46)
--- NOTE | 2018-12-01 13:15 | NUR ---
ICU/RN: Spoke with Dr Diamond; ordered supplies and consent for feeding tube replacement. Supplies kept at bedside. Per MD, "I will be back later."
[2018-12-01] MEDS ORDERED: LIDOCAINE 1%-EPI 1:100,000 20 ML VIAL TP STA (13:30)
--- NOTE | 2018-12-01 15:00 | NUR ---
ICU/RN: F/u with Dr Diamond regarding tube replacement. Awaiting call back.
--- NOTE | 2018-12-01 15:45 | NUR ---
ICU/RN: Bed bath and wound care rendered. Kept clean and dry. Tolerated well.
[2018-12-01] MEDS: diphenhydrAMINE HCL ELIX 25 MG/10 ML UDC PO PRN (16:46)
--- NOTE | 2018-12-01 19:10 | NUR ---
ICU/MANAGER COSMETICS RECEIVED REPORT FROM DAY NURSE. SEE FLOWSHEET FOR ASSESSMENT, ALONG WITH SKIN ISSUES THAT PT MAY HAVE ALONG WITH THE INTERVENTIONS TO EACH OF THESE. PT WAS TURNED AND REPOSITIONED FOR COMFORT AND CARE. WILL CONTINUE TO MONITOR THIS PT. NO ACUTE DISTRESS SEEN AT THIS TIME. CALL LIGHT WITHIN REACH.
--- NOTE | 2018-12-01 19:15 | NUR ---
ICU/FILM REPLACEMENT ORDERER DR BEE AT BEDSIDE TO PLACE G-J/TUBE. ALEXANDRA BACH GAVE DILAUDID 1MG. CONSENT SIGNED FOR PROCEDURE. PT TOLERATED THIS WELL. STAT KUB PLACED IN COMPUTER WITH GASTROGRAFIN CONTRAST. ORDER PLACED IN COMPUTER AND AWAIT RADIOLOGY TO DO THIS. PT'S CALL LIGHT WITHIN REACH. DR. BEE AWAITING RESULTS
[2018-12-01] MEDS ORDERED: DIATR MEGLU/DIATRIZOATE SODIUM 30 ML BOTTLE (GASTROGRAPHIN) ONE (19:29)
--- NOTE | 2018-12-01 19:45 | NUR ---
ICU/ASSISTANT TO THE VICE PRESIDENT XRAY DID DR CRISTAL CHRISTENSEN AT BEDSIDE AWARE OF RESULTS. HOWEVER WAIT FOR DEFINITE RESULTS READ BY RADIOLOGIST. ALSO LOW SATURATION OF 80'S, PT WAS SUCTIONED THICK YELLOW SECRETIONS WITH SOME BLOOD. PT ALSO WAS CHANGED AT THIS TIME, ALONG WITH DORI CARE. SATURATION SLOWLY CAME UP TO 96%. WILL CONTINUE TO CLOSELY MONITOR THIS PT.
--- NOTE | 2018-12-01 20:20 | NUR ---
ICU/SILVERWARE BUFFER RADIOLOGY REPORT GIVEN TO DR BEE WHO SAID OK TO USE G/J TUBE TOMORROW IF NOT LEAKING.
--- NOTE | 2018-12-01 20:48 | NUR ---
RECEIVED PT TRACH PTX 6 ON COOL AEROSOL. PT IS AWAKE AND ALERT ABLE TO TALK NO RESP DISTRESS. BS DM BILAT. WILL CONTINUE TO MONITOR.
[2018-12-01] MEDS: ZOLPIDEM TARTRATE 5 MG TABLET GT PRN (21:08)
--- NOTE | 2018-12-01 21:17 | NUR ---
ICU/SPEECH COMMUNICATION PROFESSOR PT REQUESTED AMBIEN TO SLEEP. THIS IS A PRN DOSE NOT A ROUTINE. CALL LIGHT WITHIN REACH. NO ACUTE DISTRESS SEEN AT THIS TIME. PT APPEARS COMFORTABLE WITH CALL LIGHT WITHIN REACH.
[2018-12-02] VITALS (26 sets, daily range): BP systolic 85–136; BP diastolic 34–86
--- NOTE | 2018-12-02 00:10 | NUR ---
ICU/SUPERINTENDENT BOARD MILL PT APPEARS TO BE ASLEEP, NO ACUTE DISTRESS SEEN AT THIS TIME. CALL LIGHT WITHIN REACH. WILL CONTINUE TO MONITOR THIS PT.
[2018-12-02] MEDS: IPRATROPIUM NEB FS 0.5 MG/2.5 ML AMPUL.NEB NEB SCH ×4 (01:32→20:08)
[2018-12-02] MEDS: HYDROMORPHONE 1 MG/1 ML DISP.SYRIN IV PRN ×6 (01:54→22:14)
--- NOTE | 2018-12-02 02:00 | NUR ---
ICU/CHIEF ESTIMATOR PT COMPLAINED OF BACK PAIN RATED AT 10/10. CHARGE NURSE GAVE PRN DOSE OF DILAUDID 1MG IVP. PT WAS TURNED AND REPOSITIONED FOR COMFORT AND CARE. CALL LIGHT WITHIN REACH. WILL CONTINUE TO MONITOR THIS PT.
[2018-12-02 04:37] LABS: CALCIUM, SERUM 7.8 mg/dL (8.5-10.1); CREATININE 0.4 mg/dL (0.6-1.3); MAGNESIUM 1.8 mg/dL (1.8-2.4); POTASSIUM 3.7 mmol/L (3.5-5.1)
[2018-12-02] MEDS: hydrALAZINE HCL 10 MG TABLET GT SCH ×3 (05:24→21:20)
--- NOTE | 2018-12-02 06:46 | NUR ---
ICU/BOAT HOP PT COMPLAINED OF BACK PAIN RATED AT 10/10. NOTIFIED RN NURSE WHO WAS ABLE TO GIVE PRN DOSE OF DILAUDID 1MG IVP. PT WAS TURNED AND REPOSITIONED FOR COMFORT AND CARE. CALL LIGHT WITHIN REACH. WILL CONTINUE TO MONITOR THIS PT.
--- NOTE | 2018-12-02 06:47 | NUR ---
ICU/TRAVEL GUIDE NOTIFIED CHARGE NURSE OF LEAKING G/TUBE, 20F WHICH IS NEWLY PLACED. WILL NOTIFY DAY NURSE WHO CAN CALL MD. WILL CONTINUE TO MONITOR THIS PT. CALL LIGHT WITHIN REACH. NO ACUTE DISTRESS SEEN AT THIS TIME.
--- NOTE | 2018-12-02 07:10 | NUR ---
received care from gricelda whitley. patient awake alert x4 states pain diminished and tolerable with prn dilaudid. patient denies sob or difficulty breathing and tolerating cool aerosol without difficulty trach site c/d/i. no s/s acute distress noted. per report patient j tube was not leaking after replacement but throughout the night copious amounts of drainage was noted; tube feeding on hold and holding medications until md verified ok to use. patient states decreased itchiness from rashes after starting treatment regimen. skin, safety, aspiration precautions in place and will monitor.
--- NOTE | 2018-12-02 07:25 | NUR ---
ICU/BUSINESS EMPLOYMENT SPECIALIST TRIED TO TALK TO WOUND NURSE ABOUT PT'S RASH TO LEFT HIP AND LEFT SHOULDER LOOKS SIMILAR TO THAT OF SCABIES. HOWEVER SHE SAID NEED TO TALK TO INFECTIOUS DISEASE TO DO SKIN SCRAPPING. NOTIFIED DAY SHIFT NURSE ABOUT THIS.
[2018-12-02] MEDS: ALBUTEROL FS 2.5 MG/0.5 ML VIAL.NEB NEB SCH ×3 (07:36→20:08)
[2018-12-02] MEDS: BUDESONIDE RESPULE INH 0.5 MG/2 ML AMPUL.NEB IH SCH ×2 (07:36→19:30)
[2018-12-02] MEDS: Z GUARD REMEDY 2 OZ OINT TP SCH (08:11)
[2018-12-02] MEDS: LIDOCAINE 5% (PATCH) 1 EA PATCH TP SCH (08:12)
[2018-12-02] MEDS: ENOXAPARIN SODIUM 40 MG/0.4 ML DISP.SYRIN SQ SCH (08:23)
--- NOTE | 2018-12-02 08:50 | NUR ---
NOTIFIED DR SIFUENTES OF PATIENT RASH NOT IMPROVING..R/O SCABIES? MD AWARE AND WILL SEE PATIENT Addendum: 12/02/18 at 1428 by JAY MAURICE RN incorrect note. please disregard.
[2018-12-02] MEDS: AMIODARONE HCL 200 MG TABLET GT SCH ×2 (09:00→16:06)
--- NOTE | 2018-12-02 09:00 | NUR ---
NOTIFIED DR BEE OF PATIENT LEAKING J TUBE. PER GI RESTORATION ECOLOGIST NEEDS TO FOLLOW UP WITH POSSIBLE ENDOSCOPIC INTERVENTION. NOTIFIED MD DR RANGEL RESTORATION ECOLOGIST TODAY
--- NOTE | 2018-12-02 10:00 | NUR ---
DR RANGEL AT BEDSIDE. PER MD PHILLIPS FOR MEDICATIONS THROUGH J TUBE. JACQUELINE FOR PO DIET. NPO MN
[2018-12-02] MEDS: FAMOTIDINE (20 MG) 20 MG TABLET PO SCH (10:11)
[2018-12-02] MEDS: MULTIVIT W/MINERALS 1 TAB TABLET GT SCH (10:11)
[2018-12-02] MEDS: ESCITALOPRAM OXALATE (10 MG) 10 MG TABLET GT SCH (10:11)
[2018-12-02] MEDS: FOLIC ACID 1 MG TABLET GT SCH (10:11)
[2018-12-02] MEDS: PANTOPRAZOLE 40 MG/PACK PACK GT SCH (10:12)
[2018-12-02] MEDS: MUPIROCIN OINT 2% 22 GM TUBE TP SCH ×2 (10:14→21:21)
[2018-12-02] MEDS: CLOTRIMAZOLE 1% 15 GM TUBE TP SCH ×2 (10:15→16:06)
[2018-12-02] MEDS: diphenhydrAMINE HCL ELIX 25 MG/10 ML UDC PO PRN (11:22)
--- NOTE | 2018-12-02 19:13 | NUR ---
CARE ENDORSED TO JEZ FOR STEVEN. PATIENT PAIN DIMINISHED WITH PRN DILAUDID PER PATIENT. SKIN, SAFETY, ASPIRATION PRECAUTIONS IN PLACE AND MONITORED. NO S/S ACUTE DISTRESS NOTED
--- NOTE | 2018-12-02 19:25 | NUR ---
ICU/CAPACITY ANALYST ASKED DAY SHIFT NURSE WHAT HAPPENED ABOUT SKIN RASH ASSESSMENT AND INFECTIOUS DISEASE, DAY NURSE SAID THAT DR THINKS IT'S STILL A INFECTED HAIR FOLLICLE. PT HAS COMPLAINED IT'S ITCHY DESPITE BEING GIVEN BACTROBAN AND STEROID CREAM APPLICATIONS TO THIS AREAS.
--- NOTE | 2018-12-02 19:30 | NUR ---
ICU/APPLICATION PROCESSOR RECEIVED REPORT FROM DAY NURSE. SEE FLOWSHEET FOR ASSESSMENT, ALONG WITH SKIN ISSUES THAT PT MAY HAVE ALONG WITH THE INTERVENTIONS TO EACH OF THESE. PT WAS TURNED AND REPOSITIONED FOR COMFORT AND CARE. WILL CONTINUE TO MONITOR THIS PT. NO ACUTE DISTRESS SEEN AT THIS TIME. CALL LIGHT WITHIN REACH.
[2018-12-02] MEDS: ZOLPIDEM TARTRATE 5 MG TABLET GT PRN (21:20)
--- NOTE | 2018-12-02 21:30 | NUR ---
ICU/STATE INSPECTOR PT REQUESTED AMBIEN TO SLEEP. THIS IS A PRN DOSE NOT A ROUTINE. CALL LIGHT WITHIN REACH. NO ACUTE DISTRESS SEEN AT THIS TIME. PT APPEARS COMFORTABLE WITH CALL LIGHT WITHIN REACH.
--- NOTE | 2018-12-02 22:35 | NUR ---
ICU/PURIFICATION OPERATOR PT COMPLAINED OF BACK PAIN RATED AT 10/10. NOTIFIED RN NURSE WHO WAS ABLE TO GIVE PRN DOSE OF DILAUDID 1MG IVP. PT WAS TURNED AND REPOSITIONED FOR COMFORT AND CARE. CALL LIGHT WITHIN REACH. WILL CONTINUE TO MONITOR THIS PT.
--- NOTE | 2018-12-02 23:15 | NUR ---
ICU/SUPPLY CHAIN DEVELOPMENT MANAGER PT WAS GIVEN PM CARE, ALONG WITH ORAL CARE. PT REMAINS ON CURRENT COOL AIR AEROSOL SETTINGS, WITH SATURATION AT 96-100%. PT WAS TURNED AND REPOSITIONED FOR COMFORT AND CARE. WILL CONTINUE TO MONITOR THIS PT. NO ACUTE DISTRESS SEEN AT THIS TIME
[2018-12-03] VITALS (27 sets, daily range): BP systolic 98–141; BP diastolic 57–84
[2018-12-03] MEDS: IPRATROPIUM NEB FS 0.5 MG/2.5 ML AMPUL.NEB NEB SCH ×4 (02:09→19:48)
[2018-12-03] MEDS: HYDROMORPHONE 1 MG/1 ML DISP.SYRIN IV PRN ×6 (02:22→22:51)
--- NOTE | 2018-12-03 02:30 | NUR ---
ICU/WIRE TECHNICIAN PT COMPLAINED OF BACK PAIN RATED AT 10/10. CHARGE NURSE GAVE PRN DOSE OF DILAUDID 1MG IVP. PT WAS TURNED AND REPOSITIONED FOR COMFORT AND CARE. CALL LIGHT WITHIN REACH. WILL CONTINUE TO MONITOR THIS PT.
[2018-12-03] MEDS: hydrALAZINE HCL 10 MG TABLET GT SCH ×3 (05:29→21:15)
--- NOTE | 2018-12-03 06:25 | NUR ---
ICU/FUEL AGENT PT COMPLAINED OF BACK PAIN RATED AT 10/10. CHARGE NURSE GAVE PRN DOSE OF DILAUDID 1MG IVP. PT WAS TURNED AND REPOSITIONED FOR COMFORT AND CARE. CALL LIGHT WITHIN REACH. WILL CONTINUE TO MONITOR THIS PT.
[2018-12-03] MEDS: ALBUTEROL FS 2.5 MG/0.5 ML VIAL.NEB NEB SCH ×3 (07:32→19:48)
[2018-12-03] MEDS: BUDESONIDE RESPULE INH 0.5 MG/2 ML AMPUL.NEB IH SCH ×2 (07:33→20:04)
[2018-12-03] MEDS ORDERED: ANESTHESIA TRAY IN PYXIS 1 EA TRAY MC ONE (08:25)
[2018-12-03] MEDS: AMIODARONE HCL 200 MG TABLET GT SCH ×2 (09:00→16:43)
--- NOTE | 2018-12-03 09:45 | NUR ---
RECEIVED PATIENT FROM OR. PER DR RANGEL PATIENT UNABLE TO VISUALIZE J TUBE THROUGH ENDOSCOPIC ROUTES AND RECC. SURGICAL INTERVENTION OR IR. NOTIFIED DR BEE PER DR RANGEL REQUEST. DR MARX AT BEDSIDE. PATIENT ON AC SUPPORT 100% FI02 AC 16, TV 500, PEEP 8 AND TOLERATING WELL 100% O2 SAT. PATIENT AWAKE AND ALERT DENIES PAIN. NO S/S ACUTE DISTRESS NOTED
[2018-12-03] MEDS: LIDOCAINE 5% (PATCH) 1 EA PATCH TP SCH (10:02)
[2018-12-03] MEDS: Z GUARD REMEDY 2 OZ OINT TP SCH (10:03)
[2018-12-03] MEDS: ESCITALOPRAM OXALATE (10 MG) 10 MG TABLET GT SCH (10:03)
[2018-12-03] MEDS: FAMOTIDINE (20 MG) 20 MG TABLET PO SCH (10:03)
[2018-12-03] MEDS: PANTOPRAZOLE 40 MG/PACK PACK GT SCH (10:03)
[2018-12-03] MEDS: FOLIC ACID 1 MG TABLET GT SCH (10:03)
[2018-12-03] MEDS: MULTIVIT W/MINERALS 1 TAB TABLET GT SCH (10:03)
[2018-12-03] MEDS: ENOXAPARIN SODIUM 40 MG/0.4 ML DISP.SYRIN SQ SCH (10:04)
[2018-12-03] MEDS: CLOTRIMAZOLE 1% 15 GM TUBE TP SCH ×2 (10:07→17:26)
[2018-12-03] MEDS: MUPIROCIN OINT 2% 22 GM TUBE TP SCH (10:08)
--- NOTE | 2018-12-03 16:00 | NUR ---
1400: patient refusing turning and offloading of sacrum, heels, and elbows. educated on skin care and wound prevention. patient states understanding 1600: patient refusing turning and offloading of sacrum, heels, and elbows. educated on skin care and wound prevention. patient states understanding
--- NOTE | 2018-12-03 16:34 | NUR ---
per id okay for skin scraping to definitively r/o scabies as patient still c/o itchiness and not muchb improvement to rash. patient placed on r/o isolation for scabies
[2018-12-03] MEDS: diphenhydrAMINE HCL ELIX 25 MG/10 ML UDC PO PRN (16:43)
--- NOTE | 2018-12-03 17:43 | NUR ---
report given to gustavo lozano for bill. i spoke with azar and she will be able to do tomorrow. at this time patient placed on precautionary rule out scabies
--- NOTE | 2018-12-03 18:54 | NUR ---
patient tx to bed 110 per order. vss. states pain managed. tolerating cool aerosol. skin, safety, aspiration precautions in place and monitored throughout the day. no s/s distress noted. r/o scabies isolation precautions in place. gustavo lozano for bill.
--- NOTE | 2018-12-03 19:48 | NUR ---
MS MORRIS RECEIVING NOTE RECEIVED PATIENT FROM [facility] ICU VIA BED TRANSPORT. RECEIVED REPORT FROM ALEXANDRA KAY Addendum: 12/03/18 at 1949 by AP JANG RN PLEASE SEE FOLLOWING NOTE.
--- NOTE | 2018-12-03 19:49 | NUR ---
MS RN RECEIVING NOTE RECEIVED PATIENT FROM [facility] ICU VIA BED TRANSPORT. RECEIVED REPORT FROM ALEXANDRA THOMPSON. PATIENT A/O X 3, NO SOB OR ACUTE DISTRESS NOTED. ON COOL AEROSOL @ 10LITERS. PATEINT ADMITTED FOR G-TUBE DYSFUNCTION. ON ISOLATION TO R/O SCABIES. LFA # 20 X 2 INTACT AND PATENT. PATEINT RECEIVED AT TIME OF CHANGEOVER, CARE ENDORSED TO ALEXANDRA DOLAN.
--- NOTE | 2018-12-03 20:00 | NUR ---
KLAUS RN NOTE PT IN BED AWAKE. A/O X 3, NO SOB, NO DISTRESS OR DISCMFORT NOTED. DENIES PAIN AT THIS TIME. ON COOL AEROSOL 40% TRACH PORTEX #6. ON TELE SR HR 75. CONDOM CATH INTACT AND PATENT DRAINING YELLOWISH COLOR URINE. J TUBE INTACT AND PATENT. USING ONLY FOR MEDS TILL AM PER MD DIRECTIONS. LFA #20 SL INTACT AND PATENT. REMAIN IN ISOLATIONS FOR POSSIBLE SCABIES, ISO PRECAUTIONS TAKEN. SIDE RAILS UP X 2 AND CALL LIGHT WITHIN REACH. VSS. CONTINUE TO MONITOR HIM.
[2018-12-03] MEDS: ZOLPIDEM TARTRATE 5 MG TABLET GT PRN (21:15)
[2018-12-04] VITALS: BP 123/64
[2018-12-04] MEDS: IPRATROPIUM NEB FS 0.5 MG/2.5 ML AMPUL.NEB NEB SCH ×4 (00:38→20:20)
[2018-12-04] MEDS: diphenhydrAMINE HCL ELIX 25 MG/10 ML UDC PO PRN ×2 (00:55→23:06)
[2018-12-04] MEDS: HYDROMORPHONE 1 MG/1 ML DISP.SYRIN IV PRN ×5 (03:08→20:28)
[2018-12-04 04:00] VITALS: BP 132/63
[2018-12-04] MEDS: hydrALAZINE HCL 10 MG TABLET GT SCH ×3 (05:31→20:27)
[2018-12-04 06:33] LABS: BASOPHILS # (AUTO) 0.1 /CMM (0.0-0.2); EOSINOPHILS % (AUTO) 3.4 % (0.0-6.0); HEMATOCRIT 35 % (39-51); HEMOGLOBIN 11.5 g/dL (13.5-17.5); LYMPHOCYTES # (AUTO) 1.3 /CMM (0.8-4.8); LYMPHOCYTES % (AUTO) 24.2 % (20.0-44.0); MEAN CORPUSCULAR HGB CONC 33 g/dl (31.0-36.0); MEAN CORPUSCULAR VOLUME 88 fL (80-96); MONOCYTES # (AUTO) 0.5 /CMM (0.1-1.30); MONOCYTES % (AUTO) 9.2 % (2.0-12.0); NEUTROPHILS # (AUTO) 3.4 /CMM (1.8-8.9); NEUTROPHILS % (AUTO) 62.2 % (43.0-81.0); PLATELET COUNT (AUTO) 211 /CMM (150-450); RED BLOOD CELL COUNT(AUTO) 3.97 MIL/uL (4.5-6.0); WHITE BLOOD COUNT (AUTO) 5.5 K/uL (4.3-11.0)
--- NOTE | 2018-12-04 06:42 | NUR ---
MARY NOTE PT IN BED ASLEEP, AROUSABLE. NO DISTRESS OR DISCOMFORT NOTED. ON TELE MONITOR SR HR 68. DENIES ANY PAIN. BED BATH GIVEN. ALSO CHANGED CONDOM CATH. ALL NEEDS ATTENDED. SIDE RAILS UP AND CALL LIGHT WITHIN REACH. VSS. PHILIPPE ENDORSE TO DAY SHIFT NURSE FOR CONTINUE TO CARE.
[2018-12-04 07:08] LABS: ALBUMIN 1.7 g/dL (3.4-5.0); BILIRUBIN,TOTAL 0.4 mg/dL (0.2-1.0); CALCIUM, SERUM 8.3 mg/dL (8.5-10.1); CREATININE 0.4 mg/dL (0.6-1.3); MAGNESIUM 1.5 mg/dL (1.8-2.4); PHOSPHORUS 3.6 mg/dL (2.5-4.9); POTASSIUM 3.7 mmol/L (3.5-5.1); TOTAL PROTEIN, SERUM 6.9 g/dL (6.4-8.2)
[2018-12-04] MEDS: BUDESONIDE RESPULE INH 0.5 MG/2 ML AMPUL.NEB IH SCH ×2 (07:21→20:20)
[2018-12-04] MEDS: ALBUTEROL FS 2.5 MG/0.5 ML VIAL.NEB NEB SCH ×3 (07:21→20:20)
--- NOTE | 2018-12-04 07:30 | NUR ---
KLAUS RN OPENING NOTE RECEIVED REPORT FROM PM NURSE. PATIENT A/O X 3-4. NO SOB OR ACUTE DISTRESS NOTED. ON COOL AEROSOL @ 40% FIO2. ON ISOLATION TO R/O SCABIES. LFA # 20 X 2 INTACT AND PATENT. ASPIRATION AND SAFETY MEASURES IN PLACE.CALL LIGHT IN REACH.BED ALARM ON.WILL CONTINUE TO MONITOR.
[2018-12-04 08:00] VITALS: BP 130/80
[2018-12-04] MEDS: LIDOCAINE 5% (PATCH) 1 EA PATCH TP SCH (08:29)
[2018-12-04] MEDS: FAMOTIDINE (20 MG) 20 MG TABLET PO SCH (08:29)
[2018-12-04] MEDS: ESCITALOPRAM OXALATE (10 MG) 10 MG TABLET GT SCH (08:30)
[2018-12-04] MEDS: PANTOPRAZOLE 40 MG/PACK PACK GT SCH (08:30)
[2018-12-04] MEDS: FOLIC ACID 1 MG TABLET GT SCH (08:30)
[2018-12-04] MEDS: MULTIVIT W/MINERALS 1 TAB TABLET GT SCH (08:30)
[2018-12-04] MEDS: AMIODARONE HCL 200 MG TABLET GT SCH ×2 (08:30→16:23)
[2018-12-04] MEDS: CLOTRIMAZOLE 1% 15 GM TUBE TP SCH ×2 (08:35→16:23)
[2018-12-04] MEDS: Z GUARD REMEDY 2 OZ OINT TP SCH (08:35)
[2018-12-04] MEDS: ENOXAPARIN SODIUM 40 MG/0.4 ML DISP.SYRIN SQ SCH (08:48)
--- NOTE | 2018-12-04 09:00 | NUR ---
KLAUS RN NOTE SEEN BY ,UPDATED ABOUT PATIENT CONDITION WITH LABS Mg105.WAITING FOR TO SE THE PATIENT.OK TO START GT FEEDING.PATIENT ON CONTACT ISOLATION FOR POSSIBLE SCABIES.OK TO D/C PATIENT TO SNF AFTER SCRAPING L HIP.
[2018-12-04] MEDS ORDERED: CLOT15CR35 TP (09:03)
[2018-12-04] MEDS ORDERED: FAMO20TA80 PO (09:03)
[2018-12-04] MEDS ORDERED: ALLA266C2 TP (09:03)
[2018-12-04] MEDS ORDERED: ALBU2.5V13 NEB (09:03)
[2018-12-04] MEDS: JEVITY 1.2 CAL 1,000 ML BOTTLE GT PRN (09:45)
--- NOTE | 2018-12-04 10:00 | NUR ---
KLAUS RN NOTE SEEN BY AND GLENIS HOLDEN FROM SURGERY.UPDATED ABOUT PATIENT CONDITION.OK TO START FEEDING.WILL CONTINUE TO MONITOR.
--- NOTE | 2018-12-04 10:46 | NUR ---
KLAUS RN NOTE SEEN BY GLENIS CRABTREE FROM WOUND,UPDATED ABOUT PATIENT CONDITION AND SCRAPING OF L HIP.SHE WILL LET GLENIS KRAMER KNOW ABOUT IT.MADE AWARE THAT SPREADING RASHES TO DIFFERENT SITES OF THE BODY.CONTINUE SAME TREATMENT.WILL F/U WITH ID.
[2018-12-04] MEDS: Magnesium 1GM/D5W 100ML PREMIX 100 ML IV SCH ×2 (11:22→13:07)
[2018-12-04 12:00] VITALS: BP 121/64
[2018-12-04] MEDS ORDERED: NEOMY SULF/BACITRAC ZN/POLY 15 GM TUBE TP ONE (12:11)
--- NOTE | 2018-12-04 12:20 | NUR ---
KLAUS RN NOTE SEEN BY GLENIS CRABTREE,DONE SCRAPING.BUCKLE ATTACHER MADE AWARE.SPOKE TO LASHAUN.NO DISCHARGE TODAY.FACILITY WANT CLEARANCE REPORT FOR SCABIES.WILL CONTINUE TO MONITOR.
--- NOTE | 2018-12-04 14:30 | NUR ---
KLAUS RN NOTE GOT MESSAGE FROM CHARGE NURSE THAT PATIENT POSITIVE FOR SCABIES,GLENIS ESPINOZA MADE AWARE FROM LAB.SHE WILL LET KNOW FOR NEW ORDERS.WILL CONTINUE TO MONITOR.
[2018-12-04 16:00] VITALS: BP 118/60
--- NOTE | 2018-12-04 17:30 | NUR ---
KLAUS RN NOTE LEFT MESSAGE TO TO RELAY POSITIVE SCABIES REPORT. LEFT MESSAGE AT ANSWERING SYSTEM.WAITING FOR CALL BACK.
--- NOTE | 2018-12-04 18:47 | NUR ---
KLAUS RN NOTE RELAYED RESULT OF POSITIVE SCABIES FOR PATIENT,GOT NEW ORDER FOR ELIMITE CREAM TONIGHT AND WASH IN AM.AND REPEAT TREATMENT IN 1 WEEK.PHARMACY MADE AWARE.
--- NOTE | 2018-12-04 18:48 | NUR ---
KLAUS RN CLOSING NOTE PATIENT IN BED A/O X 4. NO SOB OR ACUTE DISTRESS NOTED. ON COOL AEROSOL @ 40% FIO2. ON ISOLATION FOR SCABIES. LFA # 20 X 2 INTACT AND PATENT. ASPIRATION AND SAFETY MEASURES IN PLACE.CALL LIGHT IN REACH.BED ALARM ON.NO DISCHARGE .TO APPLY ELIMITE TONIGHT.WILL ENDORSE TO PM NURSE FOR STEVEN.
[2018-12-04 20:00] VITALS: BP 116/68
[2018-12-04] MEDS ORDERED: PERMETHRIN 5% CRM 60 GM TUBE TP ONE (21:00)
[2018-12-04] MEDS: ZOLPIDEM TARTRATE 5 MG TABLET GT PRN (23:06)
[2018-12-05] VITALS: BP 137/76
[2018-12-05] MEDS: HYDROMORPHONE 1 MG/1 ML DISP.SYRIN IV PRN ×6 (00:34→23:59)
[2018-12-05] MEDS: IPRATROPIUM NEB FS 0.5 MG/2.5 ML AMPUL.NEB NEB SCH ×4 (01:30→19:38)
[2018-12-05 04:00] VITALS: BP 133/70
[2018-12-05] MEDS: hydrALAZINE HCL 10 MG TABLET GT SCH ×3 (05:18→20:31)
[2018-12-05 06:33] LABS: CALCIUM, SERUM 8.6 mg/dL (8.5-10.1); CREATININE 0.4 mg/dL (0.6-1.3); MAGNESIUM 1.9 mg/dL (1.8-2.4); POTASSIUM 4.4 mmol/L (3.5-5.1)
[2018-12-05] MEDS: JEVITY 1.2 CAL 1,000 ML BOTTLE GT PRN ×2 (06:36→21:22)
--- NOTE | 2018-12-05 07:00 | NUR ---
RN NOTES RECEIVED PT ON BED, A/Ox4, TRACH DEPENDENT, ON COOL AEROSOL , TRACH CARE DONE, ON TELE SB HR IN 50'S , TF AT 35CC/HR RUNNING VIA J TUBE, NO RESIDUAL NOTED , L FA IV G 20 AND L FA IV G 22 SITE CLEAN, DRY AND INTACT, SR UP X3, CALL LIGHT WITHIN EASY REACH, BED LOCKED AND IN LOWEST POSITION , CONTINUE TO MONITOR . Addendum: 12/05/18 at 0744 by CLAYTON CARL RN CORRECTION CURRENT TF RATE 55CC/HR
[2018-12-05] MEDS: BUDESONIDE RESPULE INH 0.5 MG/2 ML AMPUL.NEB IH SCH ×2 (07:58→19:55)
[2018-12-05] MEDS: ALBUTEROL FS 2.5 MG/0.5 ML VIAL.NEB NEB SCH ×3 (07:58→19:38)
[2018-12-05 08:00] VITALS: BP 116/59
[2018-12-05] MEDS: MULTIVIT W/MINERALS 1 TAB TABLET GT SCH (08:53)
[2018-12-05] MEDS: AMIODARONE HCL 200 MG TABLET GT SCH ×2 (08:54→16:33)
[2018-12-05] MEDS: FOLIC ACID 1 MG TABLET GT SCH (08:55)
[2018-12-05] MEDS: FAMOTIDINE (20 MG) 20 MG TABLET PO SCH (08:55)
[2018-12-05] MEDS: PANTOPRAZOLE 40 MG/PACK PACK GT SCH (08:55)
[2018-12-05] MEDS: ESCITALOPRAM OXALATE (10 MG) 10 MG TABLET GT SCH (08:55)
[2018-12-05] MEDS: LIDOCAINE 5% (PATCH) 1 EA PATCH TP SCH (08:57)
[2018-12-05] MEDS: ENOXAPARIN SODIUM 40 MG/0.4 ML DISP.SYRIN SQ SCH (08:57)
[2018-12-05] MEDS: CLOTRIMAZOLE 1% 15 GM TUBE TP SCH ×2 (08:59→16:36)
[2018-12-05] MEDS: Z GUARD REMEDY 2 OZ OINT TP SCH (09:00)
[2018-12-05 12:00] VITALS: BP 102/50
--- NOTE | 2018-12-05 12:00 | NUR ---
RN NOTES VSS STABLE, NO DISTRESS NOTED, CONTINUE TO MONITOR .
[2018-12-05] MEDS ORDERED: IVERMECTIN 3 MG TABLET GT ONE (13:30)
[2018-12-05 16:00] VITALS: BP 115/63
[2018-12-05] MEDS: diphenhydrAMINE HCL ELIX 25 MG/10 ML UDC PO PRN (16:46)
--- NOTE | 2018-12-05 18:00 | NUR ---
RN NOTES NO SIGNIFICANT CHANGES NOTED ON THIS SHIFT , WILL ENDORSE TO VARIETY SAW OPERATOR NURSE FOR CONTINUITY OF CARE
[2018-12-05 20:00] VITALS: BP 117/57
[2018-12-05] MEDS: ZOLPIDEM TARTRATE 5 MG TABLET GT PRN (21:21)
[2018-12-06] VITALS: BP 135/70
[2018-12-06] MEDS: IPRATROPIUM NEB FS 0.5 MG/2.5 ML AMPUL.NEB NEB SCH ×4 (01:07→19:57)
[2018-12-06 04:00] VITALS: BP 124/65
[2018-12-06] MEDS: HYDROMORPHONE 1 MG/1 ML DISP.SYRIN IV PRN ×5 (04:00→20:05)
[2018-12-06] MEDS: hydrALAZINE HCL 10 MG TABLET GT SCH ×3 (04:01→20:10)
[2018-12-06] MEDS: diphenhydrAMINE HCL ELIX 25 MG/10 ML UDC PO PRN ×2 (04:02→21:22)
--- NOTE | 2018-12-06 07:30 | NUR ---
KLAUS RN OPENING NOTE RECEIVED REPORT FROM PM NURSE. PATIENT A/O X 4. NO SOB OR ACUTE DISTRESS NOTED. ON COOL AEROSOL @ 40% FIO2. ON ISOLATION TO R/O SCABIES. LFA # 20 X 2 INTACT AND PATENT. ASPIRATION AND SAFETY MEASURES IN PLACE.CALL LIGHT IN REACH.BED ALARM ON.WILL CONTINUE TO MONITOR.
[2018-12-06 08:00] VITALS: BP 109/62
[2018-12-06] MEDS: PANTOPRAZOLE 40 MG/PACK PACK GT SCH (08:05)
[2018-12-06] MEDS: FAMOTIDINE (20 MG) 20 MG TABLET PO SCH (08:05)
[2018-12-06] MEDS: LIDOCAINE 5% (PATCH) 1 EA PATCH TP SCH (08:05)
[2018-12-06] MEDS: FOLIC ACID 1 MG TABLET GT SCH (08:05)
[2018-12-06] MEDS: MULTIVIT W/MINERALS 1 TAB TABLET GT SCH (08:05)
[2018-12-06] MEDS: ESCITALOPRAM OXALATE (10 MG) 10 MG TABLET GT SCH (08:05)
[2018-12-06] MEDS: ENOXAPARIN SODIUM 40 MG/0.4 ML DISP.SYRIN SQ SCH (08:06)
[2018-12-06] MEDS: AMIODARONE HCL 200 MG TABLET GT SCH ×2 (08:07→16:01)
[2018-12-06] MEDS: CLOTRIMAZOLE 1% 15 GM TUBE TP SCH ×2 (08:11→16:02)
[2018-12-06] MEDS: Z GUARD REMEDY 2 OZ OINT TP SCH (08:12)
[2018-12-06] MEDS: BUDESONIDE RESPULE INH 0.5 MG/2 ML AMPUL.NEB IH SCH ×2 (08:15→19:30)
[2018-12-06] MEDS: ALBUTEROL FS 2.5 MG/0.5 ML VIAL.NEB NEB SCH ×3 (08:15→19:57)
--- NOTE | 2018-12-06 13:59 | NUR ---
CLARIFIED SCRAPING PENDING,PER LAB NEED SPECIMEN.SPOKE WITH BEULAH BECKHAM DIRECTOR IF NOBODY CAN SCRAPE PATIENT SHE WILL DO IT FIRST THING ON SATURDAY.VIDEO EFFECTS EDITOR AWARE . AWARE.TRIED GLENIS BLAND AND PASQUALE GALVIN AND BRODERICK BECKHAM ,DOESNT DO SCRAPING.WILL WAIT FOR BEULAH SATURDAY TO SCRAPE PATIENT.VALENTÍN AWARE.
[2018-12-06 16:00] VITALS: BP_SYST 107; BP_DIAS 55; BP_DIAS 75
[2018-12-06] MEDS: JEVITY 1.2 CAL 1,000 ML BOTTLE GT PRN (16:01)
--- NOTE | 2018-12-06 18:00 | NUR ---
MS RN NOTE AMIODARONE ON HOLD HR<60
--- NOTE | 2018-12-06 18:43 | NUR ---
MS RN CLOSING NOTE PATIENT A/O X 4. NO SOB OR ACUTE DISTRESS NOTED. ON COOL AEROSOL @ 40% FIO2. ON ISOLATION TO R/O SCABIES. LFA # 20 X 2 INTACT AND PATENT. ASPIRATION AND SAFETY MEASURES IN PLACE.CALL LIGHT IN REACH.BED ALARM ON.PENDING SCRAPING.WILL F/U ON SATURDAY.
[2018-12-06] MEDS ORDERED: IVERMECTIN 3 MG TABLET GT ONE (19:30)
[2018-12-06 20:00] VITALS: BP 95/46
[2018-12-06] MEDS ORDERED: PERMETHRIN 5% CRM 60 GM TUBE TP ONE ×2 (20:47→21:00)
[2018-12-06] MEDS: ZOLPIDEM TARTRATE 5 MG TABLET GT PRN (22:12)
[2018-12-07] MEDS: HYDROMORPHONE 1 MG/1 ML DISP.SYRIN IV PRN ×6 (00:07→20:03)
[2018-12-07] MEDS: IPRATROPIUM NEB FS 0.5 MG/2.5 ML AMPUL.NEB NEB SCH ×4 (01:30→20:22)
[2018-12-07 04:00] VITALS: BP 104/48
[2018-12-07] MEDS: hydrALAZINE HCL 10 MG TABLET GT SCH ×3 (04:40→20:47)
[2018-12-07] MEDS ORDERED: IVERMECTIN 3 MG TABLET PO ONE (07:30)
--- NOTE | 2018-12-07 07:30 | NUR ---
INITIAL PATIENT A/O X 4. NO SOB OR ACUTE DISTRESS NOTED. ON COOL AEROSOL @ 40% FIO2 RESTING QUIETLY IN BED RESPIRATIONS EVEN.. ON ISOLATION TO R/O SCABIES. LFA # 20 X 2 INTACT AND PATENT. ASPIRATION AND SAFETY MEASURES IN PLACE.CALL LIGHT IN REACH.BED ALARM ON.PENDING SKIN SCRAPING.WILL F/U ON SATURDAY.BED IN LOW POSITION WILL CONTINUE TO MONITOR
[2018-12-07 08:00] VITALS: BP 129/63
[2018-12-07] MEDS: FAMOTIDINE (20 MG) 20 MG TABLET PO SCH (08:15)
[2018-12-07] MEDS: ESCITALOPRAM OXALATE (10 MG) 10 MG TABLET GT SCH (08:15)
[2018-12-07] MEDS: ENOXAPARIN SODIUM 40 MG/0.4 ML DISP.SYRIN SQ SCH (08:15)
[2018-12-07] MEDS: BUDESONIDE RESPULE INH 0.5 MG/2 ML AMPUL.NEB IH SCH ×2 (08:18→20:22)
[2018-12-07] MEDS: ALBUTEROL FS 2.5 MG/0.5 ML VIAL.NEB NEB SCH ×3 (08:45→20:22)
[2018-12-07] MEDS: JEVITY 1.2 CAL 1,000 ML BOTTLE GT PRN ×2 (09:58→23:54)
[2018-12-07] MEDS: AMIODARONE HCL 200 MG TABLET GT SCH ×2 (09:59→17:18)
[2018-12-07] MEDS: FOLIC ACID 1 MG TABLET GT SCH (10:00)
[2018-12-07] MEDS: MULTIVIT W/MINERALS 1 TAB TABLET GT SCH (10:00)
[2018-12-07] MEDS: PANTOPRAZOLE 40 MG/PACK PACK GT SCH (10:00)
[2018-12-07] MEDS: CLOTRIMAZOLE 1% 15 GM TUBE TP SCH ×2 (10:01→17:16)
[2018-12-07] MEDS: LIDOCAINE 5% (PATCH) 1 EA PATCH TP SCH (10:01)
[2018-12-07] MEDS: Z GUARD REMEDY 2 OZ OINT TP SCH (10:01)
[2018-12-07 16:00] VITALS: BP 113/62
--- NOTE | 2018-12-07 18:11 | NUR ---
Closing PATIENT A/O X 4. NO SOB OR ACUTE DISTRESS NOTED. ON COOL AEROSOL @ 40% FIO2. ON ISOLATION TO R/O SCABIES. LFA # 20 X 2 INTACT AND PATENT. ASPIRATION AND SAFETY MEASURES IN PLACE.CALL LIGHT IN REACH.BED ALARM ON.PENDING SCRAPING.ORDERED FOR SATURDAY. Will GIVE REPORT TO PM RN FOR CONTINUITY OF CARE
--- NOTE | 2018-12-07 19:55 | NUR ---
RN INITIAL NOTES: RECEIVED REPORT FROM MARK MORRIS. PT IN BED, AWAKE, A/O X4, ON TRACHE COLLAR 10L OXYGEN, FIO2 40%, PT ABLE TO MAKE HIS NEEDS KNOWN. PT ON TUBE FEEDING AND PUREED DIET OKAY PER MD AND NURSING AGENCY MANAGER. PT HAS JTUBE, PATENT AND FLUSHING WELL, NO RESISTANCE NOTED , FREE FROM LEAK OR BLEEDING, RECEIVING JEVITY 1.2 AT 70ML/HR, ABDOMEN SOFT TO TOUCH WITH ACTIVE BOWEL SOUND HEARD UPON AUSCULTATION. IV ACCESS PATENT AND FLUSHING WELL, ON HL. PT ON SCABIES ISOLATION, S/P PERMITHRIN CREAM APPLICATION. PPE UTILIZED. SAFETY PRECAUTIONS FOR FALL INITIATED, CALL LIGHT IN REACH, WILL CONTINUE MONITORING PT.
[2018-12-07 20:00] VITALS: BP 124/63
--- NOTE | 2018-12-07 20:04 | NUR ---
prn dilaudid: pt c/o 03/05 upper back pain requesting for dilaudid, prn dilaudid 1 mg ivp administered to pt at this time.
[2018-12-07] MEDS: diphenhydrAMINE HCL ELIX 25 MG/10 ML UDC PO PRN (21:00)
--- NOTE | 2018-12-07 21:00 | NUR ---
PRN BENADRYL: PT REQUESTED FOR BENADRYL DUE TO ITCHING, PRN BENADRYL ADMINISTERED AT THIS TIME
[2018-12-07] MEDS: ZOLPIDEM TARTRATE 5 MG TABLET GT PRN (21:34)
--- NOTE | 2018-12-07 21:34 | NUR ---
prn ambien: pt requested for sleeping pill, prn ambien administered vias gtube at this time.
--- NOTE | 2018-12-07 22:00 | NUR ---
RN NOTES: PT REFUSED TO BE TURN AND REPOSITION, EDUCATION PROVIDED TO PT,
[2018-12-08] VITALS (7 sets, daily range): BP systolic 100–124; BP diastolic 46–65
[2018-12-08] MEDS: HYDROMORPHONE 1 MG/1 ML DISP.SYRIN IV PRN ×5 (00:03→16:50)
--- NOTE | 2018-12-08 00:03 | NUR ---
prn dilaudid: pt c/o 01/03 upper back pain requesting for dilaudid, prn dilaudid administered ivp at this time, will continue to montior and reassess pt
--- NOTE | 2018-12-08 00:32 | NUR ---
RN NOTES: PT REFUSED AGAIN TO BE TURN AND REPOSITION STATED HE CAN TURN ON HIS OWN, EDUCATION PROVIDED TO PT TO RISK AND BENEFITS OF DEVELOPING PRESSURE ULCER.
[2018-12-08] MEDS: IPRATROPIUM NEB FS 0.5 MG/2.5 ML AMPUL.NEB NEB SCH ×3 (01:26→13:58)
--- NOTE | 2018-12-08 04:06 | NUR ---
PRN DILAUDID: PT C/O 01/03 UPPER BACK PAIN, REQUESTING FOR DILAUDID, PRN DILAUDID 1MG IVP ADMINISTERED AT THIS TIME, WILL COTNINUE TO MONITOR AND REASSESS PT. ALSO PT REFUSED TO BE TURN AND REPOSITION AT THIS TIME, AGAIN, EDUCATION PROVIDED TO PT.
[2018-12-08] MEDS: hydrALAZINE HCL 10 MG TABLET GT SCH ×2 (05:00→12:55)
--- NOTE | 2018-12-08 06:37 | NUR ---
RN CLOSING NOTES: PT REMAINS ON COOL AEROSOL TRACH COLLAR, SPO2 97%. LAST PAIN MEDS ADMINISTERED 0400AM. GTUBE REMAINS FREE FROM S/S OF LEAKING OR BLEEDING. NO RESIDUAL OBTAINED THROUGHOUT THE SHIFT. GTUBE REMAINS PATENT AND FLUSHING WELL, RECEIVING WITH JEVITY 1.2 AT 70ML/HR. BLE OFFLOADED. FOR SKIN SCRAPING TODAY, CONSENT SECURED AND SIGNED BY THE PT. VS REMAINS STABLE, NEEDS ATTENDED. SAFETY PRECAUTIONS FOR FALL REMAINS ENGAGED, CALL LIGHT IN REACH, WILL ENDORSE TO DAY RN FOR CONTINUITY OF CARE.
--- NOTE | 2018-12-08 07:58 | NUR ---
RN OPENING NOTES PT IN BED RESTING. PT ON TRACH COLLAR 10L OXYGEN, FIO2 40%. NO APPARENT S/S OF PAIN, DISTRESS OR SOB AT THIS TIME. PT HAS code-laboration RUNNING J[employer] 1.2 @70ML/HR. PT HAS A LEFT FOREARM #22, INTACT AND PATENT. SAFETY PRECAUTIONS IN PLACE, BED IN LOWEST LOCKED POSITION, X2 SIDE RAILS UP AND CALL LIGHT WITHIN REACH. WILL CONTINUE TO MONITOR.
[2018-12-08] MEDS: ALBUTEROL FS 2.5 MG/0.5 ML VIAL.NEB NEB SCH ×2 (08:25→13:58)
[2018-12-08] MEDS: BUDESONIDE RESPULE INH 0.5 MG/2 ML AMPUL.NEB IH SCH (08:26)
[2018-12-08] MEDS: ESCITALOPRAM OXALATE (10 MG) 10 MG TABLET GT SCH (08:43)
[2018-12-08] MEDS: LIDOCAINE 5% (PATCH) 1 EA PATCH TP SCH (08:43)
[2018-12-08] MEDS: PANTOPRAZOLE 40 MG/PACK PACK GT SCH (08:43)
[2018-12-08] MEDS: AMIODARONE HCL 200 MG TABLET GT SCH ×2 (08:43→16:51)
[2018-12-08] MEDS: FAMOTIDINE (20 MG) 20 MG TABLET PO SCH (08:43)
[2018-12-08] MEDS: FOLIC ACID 1 MG TABLET GT SCH (08:43)
[2018-12-08] MEDS: MULTIVIT W/MINERALS 1 TAB TABLET GT SCH (08:43)
[2018-12-08] MEDS: ENOXAPARIN SODIUM 40 MG/0.4 ML DISP.SYRIN SQ SCH (08:45)
[2018-12-08] MEDS: Z GUARD REMEDY 2 OZ OINT TP SCH (08:53)
[2018-12-08] MEDS: CLOTRIMAZOLE 1% 15 GM TUBE TP SCH ×2 (08:53→16:51)
[2018-12-08] MEDS: diphenhydrAMINE HCL ELIX 25 MG/10 ML UDC PO PRN (15:03)
[2018-12-08] MEDS: JEVITY 1.2 CAL 1,000 ML BOTTLE GT PRN (15:04)
--- NOTE | 2018-12-08 18:56 | NUR ---
RENEWABLE ENERGY DIVISION MANAGER NOTES PT STABLE AT DISCHARGE. REPORT GIVEN TO BRYANT. PT WILL BE TRANSFERRED WITH IV. ALL DISCHARGE PAPERWORK DISCUSSED, SIGNED, AND GIVEN TO THE PATIENT. ALL BELONGINGS TAKEN WITH PATIENT. PT TAKEN OFF OF THE UNIT VIA GURNEY TRANSPORTED BY 2 PLEASURE CRAFT SAILOR.
[2018-12-11] MEDS ORDERED: PERMETHRIN 5% CRM 60 GM TUBE TP ONE (21:00)
== END 2018-12-08 19:10 | disposition short-term general hospital (02) | DRG 393 ==
LOC: ER 15:10 → MED 18:16 → ICU 11-28 16:02 → TELE-TD 12-03 18:47 → MEDSG1 12-06 11:14
PROVIDERS: ADMIT Internal Medicine Nephrology; ATTEND Internal Medicine Nephrology
PROC: 5A1935Z Respiratory Ventilation, Less than 24 Consecutive Hours (ICD-10-PCS; principal; 2018-11-28)
PROC: 0D2DXUZ Change Feeding Device in Lower Intestinal Tract, External Approach (ICD-10-PCS; 2018-11-28)
PROC: 0DJ08ZZ Inspection of Upper Intestinal Tract, Via Natural or Artificial Opening Endoscopic (ICD-10-PCS; 2018-12-03)
DX: K94.13 Enterostomy malfunction (principal); E43 Unspecified severe protein-calorie malnutrition; R64 Cachexia; Z68.1 Body mass index [BMI] 19.9 or less, adult; E87.1 Hypo-osmolality and hyponatremia; Z99.11 Dependence on respirator [ventilator] status; J96.11 Chronic respiratory failure with hypoxia; Y83.3 Surgical operation with formation of external stoma as the cause of abnormal reaction of the patient, or of later complication, without mention of misadventure at the time of the procedure; I10 Essential (primary) hypertension; D64.9 Anemia, unspecified; B35.1 Tinea unguium; D63.8 Anemia in other chronic diseases classified elsewhere; Z93.0 Tracheostomy status; Z90.3 Acquired absence of stomach [part of]; L98.8 Other specified disorders of the skin and subcutaneous tissue; S50.11XA Contusion of right forearm, initial encounter; X58.XXXA Exposure to other specified factors, initial encounter; Y93.9 Activity, unspecified; Y92.129 Unspecified place in nursing home as the place of occurrence of the external cause; L89.150 Pressure ulcer of sacral region, unstageable; E86.0 Dehydration; Y73.8 Miscellaneous gastroenterology and urology devices associated with adverse incidents, not elsewhere classified; J44.9 Chronic obstructive pulmonary disease, unspecified; L89.629 Pressure ulcer of left heel, unspecified stage; L89.619 Pressure ulcer of right heel, unspecified stage; R13.10 Dysphagia, unspecified; E16.2 Hypoglycemia, unspecified; L30.4 Erythema intertrigo; B86 Scabies; Z87.891 Personal history of nicotine dependence; G89.29 Other chronic pain; I48.91 Unspecified atrial fibrillation; Z87.01 Personal history of pneumonia (recurrent)
CPT/HCPCS: 31720; 36415; 36600; 43760; 71045-TC; 74018; 80048-TC; 80053-TC; 82803-TC; 82962-TC; 83735-TC; 84100-TC; 85025-TC; 85610-TC; 85730-TC; 86850-TC; 87081-TC; 94002-TC; 94003-TC; 94640-TC; 94760-TC; 94799-TC; A4349; A4623; A6253; A6402; A6403; A7526; G0378; J1170; J1200; J1650; J2270; J2405; J2704; J3010; J3475; J3480; J3490; J7030; J7040; J7042; J7070; Q0163; Q9963